=== PATIENT | male | born 1975 | race Caucasian/White ===

== ENCOUNTER 2016-12-11 16:23 | Emergency (ER) | payer BC ==
[2016-12-11] MEDS ORDERED: Sodium Chloride 0.9% 1,000 ML IV ONE (16:48)
--- NOTE | 2016-12-11 19:18 | EDM.PDOC ---
ED HPI GENERAL MEDICAL PROBLEM - General Chief Complaint: Abdominal Pain Stated Complaint: POSSIBLE FLU Time Seen by Provider: 12/11/16 16:50 Source of Information: Reports: Patient History Limitations: Reports: No Limitations - History of Present Illness INITIAL COMMENTS - FREE TEXT/NARRATIVE: History of present illness: 41-year-old male presenting with complaints of flulike symptoms. 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 Review of systems: As per history of present illness and below otherwise all systems reviewed and negative. Past medical history: As per history of present illness and as reviewed below otherwise noncontributory. Surgical history: As per history of present illness and as reviewed below otherwise noncontributory. Social history: No reported history of drug or alcohol abuse. Family history: As per history of present illness and as reviewed below otherwise noncontributory. Physical exam: HEENT: Atraumatic, normocephalic, pupils reactive, negative for conjunctival pallor or scleral icterus, mucous membranes moist, throat clear, neck supple, nontender, trachea midline. Lungs: Clear to auscultation, breath sounds equal bilaterally, chest nontender. Heart: S1S2, regular, negative for clicks, rubs, or JVD. Abdomen: Soft, nondistended, nontender. Negative for masses or hepatosplenomegaly. Negative for costovertebral tenderness. Pelvis: Stable nontender. Genitourinary: Deferred. Rectal: Deferred. Extremities: Atraumatic, negative for cords or calf pain. Neurovascular unremarkable. Neuro: Awake, alert, oriented. Cranial nerves II through XII unremarkable. Cerebellum unremarkable. Motor and sensory unremarkable throughout. Exam nonfocal. Global assessment is benign save that is noted in the subjective complaint in the history of present illness. Diagnostics: [CBC, CMP, EKG] Therapeutics: [IV fluid] Impression: [Nausea and intermittent diarrhea] Plan: [Zofran which patient has home follow-up with PCP] Definitive disposition and diagnosis as appropriate pending reevaluation and review of above. Abdomen Pain Score (Numeric/FACES): 7 - Related Data Allergies Allergy/AdvReac Type Severity Reaction Status Date / Time No Known Allergies Allergy Verified 12/11/16 16:46 Home Meds: Home Meds Pantoprazole [ProTONIX] 40 mg PO DAILY 09/29/14 [History] Sertraline [Zoloft] 50 mg PO DAILY 09/29/14 [History] Magnesium Oxide [Magnesium] 400 mg PO DAILY 11/02/14 [History] Melatonin/Pyridoxine HCl (B6) [Melatonin 3 mg Tablet] 3 mg PO BEDTIME PRN [History] LORazepam 0.5 mg PO Q6HR PRN 12/12/14 [History] Fludrocortisone [Florinef] 0.05 mg PO BIDMEALS #60 tablet 12/16/14 [Rx] Canagliflozin [Invokana] 300 mg PO DAILY 12/11/15 [History] Ondansetron [Ondansetron ODT] 4 mg PO Q6H PRN 12/11/15 [History] Hydrocortisone 5 mg PO QPM #45 tablet 12/12/15 [Rx] Hydrocortisone 10 mg PO QAM #45 tablet 12/12/15 [Rx] Past Medical History HEENT History: Reports: Impaired Vision Cardiovascular History: Reports: Cardiomyopathy, Hypertension Other Cardiovascular History: "fluid buildup on the heart" Respiratory History: Reports: None Gastrointestinal History: Reports: GERD Genitourinary History: Reports: None Psychiatric History: Reports: Anxiety, Depression Endocrine/Metabolic History: Reports: 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 Diff - Past Surgical History HEENT Surgical History: Reports: None Cardiovascular Surgical History: Reports: None GI Surgical History: Reports: Cholecystectomy Social & Family History - Family History Family Medical History: Noncontributory Respiratory: Reports: COPD, Other (See Below) Other Respiratory Family Hisory: pneumonia : Reports: Other (See Below) Other Family History: renal failure Endocrine/Metabolic: Reports: Diabetes, type II, Hypothyroidism Oncologic: Reports: Skin, Thyroid, Other (See Below) Other Oncologic Family History: stomach - Tobacco Use Smoking Status *Q: Never Smoker Second Hand Smoke Exposure: No - Caffeine Use Caffeine Use: Reports: Coffee Caffeine Use Comment: 3-4 drinks - Alcohol Use Days Per Week of Alcohol Use: 0 - Recreational Drug Use Recreational Drug Use: No - Living Situation & Occupation Living situation: Reports: Single Occupation: Employed ED ROS GENERAL - Review of Systems Review Of Systems: See Below (See history of present illness) ED EXAM, GI/ABD - Physical Exam Exam: See Below (See history of present illness) Course - Vital Signs Last Recorded V/S: Last Vital Signs Temp 36.4 C 12/11/16 16:46 Pulse 115 H 12/11/16 16:46 Resp 16 12/11/16 16:46 BP 105/54 L 12/11/16 16:46 Pulse Ox 96 12/11/16 16:46 - Orders/Labs/Meds Orders: Active Orders 24 hr Category Date Time Status EKG 12 Lead [EKG Documentation Completion] [RC] URGENT Care 12/11/16 17:10 Active Labs: Laboratory Tests 12/11/16 12/11/16 12/11/16 Range/Units 17:15 17:15 17:15 WBC 12.58 H (4.0-11.0) K/uL RBC 4.35 L (4.50-5.90) M/uL Hgb 13.2 (13.0-17.0) g/dL Hct 39.8 (38.0-50.0) % MCV 91.5 (80.0-98.0) fL MCH 30.3 (27.0-32.0) pg MCHC 33.2 (31.0-37.0) g/dL RDW Std Deviation 46.4 (28.0-62.0) fl RDW Coeff of Carlos 14 (11.0-15.0) % Plt Count 290 (150-400) K/uL MPV 10.70 (7.40-12.00) fL Neut % (Auto) 74.0 (48.0-80.0) % Lymph % (Auto) 16.6 (16.0-40.0) % Stone % (Auto) 7.5 (0.0-15.0) % Eos % (Auto) 1.7 (0.0-7.0) % Baso % (Auto) 0.2 (0.0-1.5) % Neut # (Auto) 9.3 H (1.4-5.7) K/uL Lymph # (Auto) 2.1 (0.6-2.4) K/uL Stone # (Auto) 0.9 H (0.0-0.8) K/uL Eos # (Auto) 0.2 (0.0-0.7) K/uL Baso # (Auto) 0.0 (0.0-0.1) K/uL Nucleated RBC % 0.0 /100WBC Nucleated RBCs # 0 K/uL Sodium 133 L (136-146) mmol/L Potassium 4.8 (3.5-5.1) mmol/L Chloride 105 (98-110) mmol/L Carbon Dioxide 15 L (21-31) mmol/L BUN 39 H (6.0-23.0) mg/dL Creatinine 1.5 (0.6-1.5) mg/dL Est Cr Clr Drug Dosing 82.09 mL/min Estimated GFR (MDRD) 51.1 ml/min Glucose 135 H (60-110) mg/dL Calcium 9.1 (8.8-10.8) mg/dL Total Bilirubin 0.7 (0.1-1.5) mg/dL AST 22 (5-40) IU/L ALT 33 (8-54) IU/L Alkaline Phosphatase 79 (40-150) Troponin I < 0.10 (0.0-0.29) NG/ML Total Protein 7.9 (6.0-8.0) g/dL Albumin 4.5 (3.5-5.0) g/dL Globulin 3.4 (2.0-3.5) g/dL Albumin/Globulin Ratio 1.3 (1.3-2.8) Meds: Medications Discontinued Medications Generic Name Dose Route Start Last Admin Trade Name Freq PRN Reason Stop Dose Admin Sodium Chloride 1,000 mls @ 999 mls/hr 12/11/16 16:48 12/11/16 18:27 Normal Saline IV 12/11/16 17:48 999 mls/hr STAT ONE Administration Departure - Departure Time of Disposition: 19:17 Disposition: Home, Self-Care 01 Condition: Good Clinical Impression: Diarrhea, Nausea - Discharge Information Forms: ED Department Discharge Additional Instructions: The following information is given to patients seen in the emergency department who are being discharged to home. This information is to outline your options for follow-up care. We provide all patients seen in our emergency department with a follow-up referral. The need for follow-up, as well as the timing and circumstances, are variable depending upon the specifics of your emergency department visit. If you don't have a primary care physician on staff, we will provide you with a referral. We always advise you to contact your personal physician following an emergency department visit to inform them of the circumstance of the visit and for follow-up with them and/or the need for any referrals to a consulting specialist. The emergency department will also refer you to a specialist when appropriate. This referral assures that you have the opportunity for follow-up care with a specialist. All of these measure are taken in an effort to provide you with optimal care, which includes your follow-up. Under all circumstances we always encourage you to contact your private physician who remains a resource for coordinating your care. When calling for follow-up care, please make the office aware that this follow-up is from your recent emergency room visit. If for any reason you are refused follow-up, please contact the [facility] Emergency Department at and asked to speak to the emergency department charge nurse. Take Zofran that you have a home as needed as discussed Take a clear liquid diet for the next 24-48 hours then slowly advancing diet using the breast diet which is bananas rice applesauce and toast and advancing to your normal diet as tolerated Follow-up with primary care provider in 1-2 days Return to ED as needed as discussed - My Orders Last 24 Hours: My Active Orders 12/11/16 17:10 EKG 12 Lead [EKG Documentation Completion] [RC] URGENT - Assessment/Plan Last 24 Hours: My Active Orders 12/11/16 17:10 EKG 12 Lead [EKG Documentation Completion] [RC] URGENT
[2016-12-11 20:21] VITALS: BP 99/60
== END 2016-12-11 19:37 | disposition home or self-care (01) ==
LOC: MW.ED 16:23
DX: R19.7 Diarrhea, unspecified (principal); R11.0 Nausea; K21.9 Gastro-esophageal reflux disease without esophagitis; F41.9 Anxiety disorder, unspecified; F32.9 Major depressive disorder, single episode, unspecified; E11.9 Type 2 diabetes mellitus without complications; Z90.49 Acquired absence of other specified parts of digestive tract; Z79.899 Other long term (current) drug therapy
CPT/HCPCS: 36415; 80053; 84484; 85025; 93005; 96360; 99284; J7040; 99282

== ENCOUNTER 2017-01-02 16:38 | Emergency (ER) | payer BC ==
--- NOTE | 2017-01-02 16:54 | EDM.PDOC ---
ED HPI GENERAL MEDICAL PROBLEM - General Stated Complaint: PT DIZZY Time Seen by Provider: 01/02/17 16:47 Source of Information: Reports: Patient - History of Present Illness INITIAL COMMENTS - FREE TEXT/NARRATIVE: HISTORY AND PHYSICAL: History of present illness: []Patient presents by private vehicle Has a complaint of fatigue after starting medication glipizide this morning and began to feel the fatigue and what he describes as dizzy or aloof, however he states he is actually not dizzy he just doesn't feel himself, currently glucose is 87 on Accu-Chek no other specific symptoms such as fever nausea vomiting diarrhea constipation chest pain shortness breath headache actual dizziness or palpitation no bowel or urine symptoms Patient did have a small lunch today he does not notice glucose generally runs as he does not check however does know his last A1c was 7.4 Review of systems: As per history of present illness and below otherwise all systems reviewed and negative. Past medical history: As per history of present illness and as reviewed below otherwise noncontributory. Surgical history: As per history of present illness and as reviewed below otherwise noncontributory. Social history: No reported history of drug or alcohol abuse. Family history: As per history of present illness and as reviewed below otherwise noncontributory. Physical exam: HEENT: Atraumatic, normocephalic, pupils reactive, negative for conjunctival pallor or scleral icterus, mucous membranes moist, throat clear, neck supple, nontender, trachea midline. Lungs: Clear to auscultation, breath sounds equal bilaterally, chest nontender. Heart: S1S2, regular, negative for clicks, rubs, or JVD. Abdomen: Soft, nondistended, nontender. Negative for masses or hepatosplenomegaly. Negative for costovertebral tenderness. Pelvis: Stable nontender. Genitourinary: Deferred. Rectal: Deferred. Extremities: Atraumatic, negative for cords or calf pain. Neurovascular unremarkable. Neuro: Awake, alert, oriented. Cranial nerves II through XII unremarkable. Cerebellum unremarkable. Motor and sensory unremarkable throughout. Exam nonfocal. 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 - Related Data Allergies Allergy/AdvReac Type Severity Reaction Status Date / Time No Known Allergies Allergy Verified 01/02/17 16:51 Home Meds: Home Meds Pantoprazole [ProTONIX] 40 mg PO DAILY 09/29/14 [History] Sertraline [Zoloft] 50 mg PO DAILY 09/29/14 [History] Magnesium Oxide [Magnesium] 400 mg PO DAILY 11/02/14 [History] Melatonin/Pyridoxine HCl (B6) [Melatonin 3 mg Tablet] 3 mg PO BEDTIME PRN [History] LORazepam 0.5 mg PO Q6HR PRN 12/12/14 [History] Fludrocortisone [Florinef] 0.05 mg PO BIDMEALS #60 tablet 12/16/14 [Rx] Canagliflozin [Invokana] 300 mg PO DAILY 12/11/15 [History] Ondansetron [Ondansetron ODT] 4 mg PO Q6H PRN 12/11/15 [History] Hydrocortisone 5 mg PO QPM #45 tablet 12/12/15 [Rx] Hydrocortisone 10 mg PO QAM #45 tablet 12/12/15 [Rx] glipiZIDE [Glipizide ER] 2 mg PO DAILY 01/02/17 [History] Past Medical History HEENT History: Reports: Impaired Vision Cardiovascular History: Reports: Cardiomyopathy, Hypertension Other Cardiovascular History: "fluid buildup on the heart" Respiratory History: Reports: None Gastrointestinal History: Reports: GERD Genitourinary History: Reports: None Psychiatric History: Reports: Anxiety, Depression 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 Diff - Past Surgical History HEENT Surgical History: Reports: None Cardiovascular Surgical History: Reports: None GI Surgical History: Reports: Cholecystectomy Social & Family History - Family History Family Medical History: Noncontributory Respiratory: Reports: COPD, Other (See Below) Other Respiratory Family Hisory: pneumonia : Reports: Other (See Below) Other Family History: renal failure Endocrine/Metabolic: Reports: Diabetes, type II, Hypothyroidism Oncologic: Reports: Skin, Thyroid, Other (See Below) Other Oncologic Family History: stomach - Tobacco Use Smoking Status *Q: Never Smoker Second Hand Smoke Exposure: No - Caffeine Use Caffeine Use: Reports: Coffee Caffeine Use Comment: 3-4 drinks - Alcohol Use Days Per Week of Alcohol Use: 0 - Recreational Drug Use Recreational Drug Use: No - Living Situation & Occupation Living situation: Reports: Single Occupation: Employed ED ROS GENERAL - Review of Systems Review Of Systems: ROS reveals no pertinent complaints other than HPI. ED EXAM, GENERAL - Physical Exam Exam: See Below Course - Vital Signs Last Recorded V/S: Last Vital Signs Temp 35.8 C 01/02/17 16:52 Pulse 88 01/02/17 16:52 Resp 16 01/02/17 16:52 BP 125/71 01/02/17 16:52 Pulse Ox 96 01/02/17 16:52 - Orders/Labs/Meds Orders: Active Orders 24 hr Category Date Time Status EKG Documentation Completion [RC] STAT Care 01/02/17 16:54 Active TROPONIN I [CHEM] Stat Lab 01/02/17 18:29 Received Labs: Laboratory Tests 01/02/17 01/02/17 01/02/17 Range/Units 17:13 17:13 17:13 WBC 14.18 H (4.0-11.0) K/uL RBC 4.00 L (4.50-5.90) M/uL Hgb 12.0 L (13.0-17.0) g/dL Hct 37.2 L (38.0-50.0) % MCV 93.0 (80.0-98.0) fL MCH 30.0 (27.0-32.0) pg MCHC 32.3 (31.0-37.0) g/dL RDW Std Deviation 46.2 (28.0-62.0) fl RDW Coeff of Carlos 14 (11.0-15.0) % Plt Count 314 (150-400) K/uL MPV 10.30 (7.40-12.00) fL Neut % (Auto) 67.8 (48.0-80.0) % Lymph % (Auto) 21.4 (16.0-40.0) % [place] % (Auto) 8.5 (0.0-15.0) % Eos % (Auto) 2.1 (0.0-7.0) % Baso % (Auto) 0.2 (0.0-1.5) % Neut # (Auto) 9.6 H (1.4-5.7) K/uL Lymph # (Auto) 3.0 H (0.6-2.4) K/uL [place] # (Auto) 1.2 H (0.0-0.8) K/uL Eos # (Auto) 0.3 (0.0-0.7) K/uL Baso # (Auto) 0.0 (0.0-0.1) K/uL Nucleated RBC % 0.0 /100WBC Nucleated RBCs # 0 K/uL Sodium 135 L (136-146) mmol/L Potassium 4.2 (3.5-5.1) mmol/L Chloride 104 (98-110) mmol/L Carbon Dioxide 21 (21-31) mmol/L BUN 27 H (6.0-23.0) mg/dL Creatinine 1.1 (0.6-1.5) mg/dL Est Cr Clr Drug Dosing 110.53 mL/min Estimated GFR (MDRD) > 60.0 ml/min Glucose 96 (60-110) mg/dL Calcium 8.4 L (8.8-10.8) mg/dL Total Bilirubin 0.5 (0.1-1.5) mg/dL AST 27 (5-40) IU/L ALT 35 (8-54) IU/L Alkaline Phosphatase 78 (40-150) Creatine Kinase 241 H (9-236) IU/L CK-MB (CK-2) 4.9 (0-6.6) ng/ml Total Protein 7.5 (6.0-8.0) g/dL Albumin 4.1 (3.5-5.0) g/dL Globulin 3.4 (2.0-3.5) g/dL Albumin/Globulin Ratio 1.2 L (1.3-2.8) TSH 3rd Generation 1.99 (0.47-5.0) uIU/mL Urine Color Urine Appearance Urine pH (5.0-8.0) Ur Specific [place] (1.001-1.035) Urine Protein (NEGATIVE) mg/dL Urine Glucose (UA) (NEGATIVE) mg/dL Urine Ketones (NEGATIVE) mg/dL Urine Occult Blood (NEGATIVE) Urine Nitrite (NEGATIVE) Urine Bilirubin (NEGATIVE) Urine Urobilinogen (<2.0) EU/dL Ur Leukocyte Esterase (NEGATIVE) Urine RBC (0-2/HPF) Urine WBC (0-5/HPF) Ur Epithelial Cells (NONE-FEW) Urine Bacteria (NEGATIVE) 01/02/17 Range/Units 18:11 WBC (4.0-11.0) K/uL RBC (4.50-5.90) M/uL Hgb (13.0-17.0) g/dL Hct (38.0-50.0) % MCV (80.0-98.0) fL MCH (27.0-32.0) pg MCHC (31.0-37.0) g/dL RDW Std Deviation (28.0-62.0) fl RDW Coeff of Carlos (11.0-15.0) % Plt Count (150-400) K/uL MPV (7.40-12.00) fL Neut % (Auto) (48.0-80.0) % Lymph % (Auto) (16.0-40.0) % [place] % (Auto) (0.0-15.0) % Eos % (Auto) (0.0-7.0) % Baso % (Auto) (0.0-1.5) % Neut # (Auto) (1.4-5.7) K/uL Lymph # (Auto) (0.6-2.4) K/uL [place] # (Auto) (0.0-0.8) K/uL Eos # (Auto) (0.0-0.7) K/uL Baso # (Auto) (0.0-0.1) K/uL Nucleated RBC % /100WBC Nucleated RBCs # K/uL Sodium (136-146) mmol/L Potassium (3.5-5.1) mmol/L Chloride (98-110) mmol/L Carbon Dioxide (21-31) mmol/L BUN (6.0-23.0) mg/dL Creatinine (0.6-1.5) mg/dL Est Cr Clr Drug Dosing mL/min Estimated GFR (MDRD) ml/min Glucose (60-110) mg/dL Calcium (8.8-10.8) mg/dL Total Bilirubin (0.1-1.5) mg/dL AST (5-40) IU/L ALT (8-54) IU/L Alkaline Phosphatase (40-150) Creatine Kinase (9-236) IU/L CK-MB (CK-2) (0-6.6) ng/ml Total Protein (6.0-8.0) g/dL Albumin (3.5-5.0) g/dL Globulin (2.0-3.5) g/dL Albumin/Globulin Ratio (1.3-2.8) TSH 3rd Generation (0.47-5.0) uIU/mL Urine Color YELLOW Urine Appearance CLEAR Urine pH 5.5 (5.0-8.0) Ur Specific [place] 1.015 (1.001-1.035) Urine Protein NEGATIVE (NEGATIVE) mg/dL Urine Glucose (UA) NEGATIVE (NEGATIVE) mg/dL Urine Ketones NEGATIVE (NEGATIVE) mg/dL Urine Occult Blood NEGATIVE (NEGATIVE) Urine Nitrite NEGATIVE (NEGATIVE) Urine Bilirubin NEGATIVE (NEGATIVE) Urine Urobilinogen 0.2 (<2.0) EU/dL Ur Leukocyte Esterase NEGATIVE (NEGATIVE) Urine RBC NONE SEEN (0-2/HPF) Urine WBC 0-1 (0-5/HPF) Ur Epithelial Cells RARE (NONE-FEW) Urine Bacteria RARE (NEGATIVE) Meds: Medications Discontinued Medications Generic Name Dose Route Start Last Admin Trade Name Vicente PRN Reason Stop Dose Admin Prednisone 40 mg 01/03/17 08:00 Prednisone PO WITHBREAKFAST [facility] Prednisone 40 mg 01/02/17 18:07 Prednisone PO 01/02/17 18:08 ONETIME ONE Departure - Departure Time of Disposition: 18:42 Disposition: Home, Self-Care 01 Condition: Good Clinical Impression: Medication side effect, History of Robson's disease - Discharge Information Additional Instructions: Medication as prescribed Continue your current medications as directed Return if symptoms persist or worsen Follow-up with your primary care in 2 weeks sooner as needed The following information is given to patients seen in the emergency department who are being discharged to home. This information is to outline your options for follow-up care. We provide all patients seen in our emergency department with a follow-up referral. The need for follow-up, as well as the timing and circumstances, are variable depending upon the specifics of your emergency department visit. If you don't have a primary care physician on staff, we will provide you with a referral. We always advise you to contact your personal physician following an emergency department visit to inform them of the circumstance of the visit and for follow-up with them and/or the need for any referrals to a consulting specialist. The emergency department will also refer you to a specialist when appropriate. This referral assures that you have the opportunity for follow-up care with a specialist. All of these measure are taken in an effort to provide you with optimal care, which includes your follow-up. Under all circumstances we always encourage you to contact your private physician who remains a resource for coordinating your care. When calling for follow-up care, please make the office aware that this follow-up is from your recent emergency room visit. If for any reason you are refused follow-up, please contact the [facility] emergency department at and asked to speak to the emergency department charge nurse. - My Orders Last 24 Hours: My Active Orders 01/02/17 16:54 EKG Documentation Completion [RC] STAT 01/02/17 18:29 TROPONIN I [CHEM] Stat - Assessment/Plan Last 24 Hours: My Active Orders 01/02/17 16:54 EKG Documentation Completion [RC] STAT 01/02/17 18:29 TROPONIN I [CHEM] Stat
[2017-01-02 17:52] LABS: CHLORIDE,CL 104 mmol/L (98-110); SODIUM,NA 135 mmol/L (136-146)
--- NOTE | 2017-01-02 17:56 | CR ---
EXAM DATE: 01/02/17 PATIENT'S AGE: 41 Patient: FRANCE SHELTON Facility: [place], [place] Site . Site : 1975 Study: XRay Chest [id number]/[id number] 5:33:47 PM Ordering Physician: Doctor Kaye Final Report: Indication: Fatigue, [place]`s disease Technique: Chest 1 view Comparison: May 09, 2016. Findings/Impression: Stable cardiomediastinal silhouette. No definite focal infiltrate. No effusion or pneumothorax. Osseous structures are intact. Dictated by Lela Velazquez MD @ Jan 02 2017 5:45PM (Electronic Signature) Report Signed by Proxy. RODOLFO
[2017-01-02] MEDS ORDERED: predniSONE 20 MG Tab PO ONE (18:07)
[2017-01-02 19:13] VITALS: BP 119/71
[2017-01-03] MEDS ORDERED: predniSONE 20 MG Tab PO SCH (08:00)
== END 2017-01-02 19:11 | disposition home or self-care (01) ==
LOC: MW.ED 16:38
DX: R53.83 Other fatigue (principal); T38.3X5A Adverse effect of insulin and oral hypoglycemic [antidiabetic] drugs, initial encounter; E11.9 Type 2 diabetes mellitus without complications; I10 Essential (primary) hypertension; F41.9 Anxiety disorder, unspecified; K21.9 Gastro-esophageal reflux disease without esophagitis; Z90.49 Acquired absence of other specified parts of digestive tract; Z79.899 Other long term (current) drug therapy; Z86.39 Personal history of other endocrine, nutritional and metabolic disease
CPT/HCPCS: 36415; 71010; 80053; 81001; 82550; 82553; 84443; 84484; 85025; 93005; 99284; A9270; 99282

== ENCOUNTER 2017-03-30 14:41 | Emergency (ER) | payer BC ==
[2017-03-30] MEDS ORDERED: Sodium Chloride 0.9% 10 ML Syringe FLUSH PRN (15:39)
[2017-03-30] MEDS ORDERED: Sodium Chloride 0.9% 2.5 ML Syringe FLUSH PRN (15:39)
[2017-03-30] MEDS ORDERED: Sodium Chloride 0.9% 1,000 ML IV ONE (15:40)
--- NOTE | 2017-03-30 15:44 | EDM.PDOC ---
ED HPI GENERAL MEDICAL PROBLEM - General Chief Complaint: General Stated Complaint: weak in legs Time Seen by Provider: 03/30/17 15:32 - History of Present Illness INITIAL COMMENTS - FREE TEXT/NARRATIVE: HISTORY AND PHYSICAL: History of present illness: The patient is a 42-year-old male who follows with Dr. Florez at [facility] and has a history of diabetes and Rainelle's disease presents with complaints of generalized weakness and malaise and is concerned about this. According to the patient he had a sore throat couple of days ago which has since resolved and he has not had a cough runny nose sinus congestion or headache. He said he had one episode of vomiting yesterday but no diarrhea and he is just feeling very run down and has generalized weakness. He is not dizzy or lightheaded and is not passing out or blacking out and has no neck or back pain. He has no urinary frequency and he says he's been trying to hydrate because he was concerned that his Robson's might kick in and he was getting dehydrated. Patient is compliant with his steroid regimen at home and did not take any extra prior to coming here. Patient denies any focal weakness in any of his extremities and denies the dizzy component. The patient states that his blood sugar is doing at its baseline at home and it has not been changing more elevated over the last 2 days and his last hemoglobin A1c was just over 6. Review of systems: As per history of present illness and below otherwise all systems reviewed and negative. Past medical history: As per history of present illness and as reviewed below otherwise noncontributory. Surgical history: As per history of present illness and as reviewed below otherwise noncontributory. Social history: No reported history of drug or alcohol abuse. Family history: As per history of present illness and as reviewed below otherwise noncontributory. Physical exam: Gen.: Well-developed overweight male who is nontoxic in clearly and easily in the ED vital signs of been reviewed by me HEENT: Atraumatic, normocephalic, pupils reactive, negative for conjunctival pallor or scleral icterus, mucous membranes tacky throat clear, neck supple, nontender, trachea midline. Lungs: Clear to auscultation, breath sounds equal bilaterally, chest nontender. Heart: S1S2, regular rhythm and slightly tachycardic rate on my evaluation, negative for clicks, rubs, or JVD. Abdomen: Soft, nondistended, nontender. Negative for masses or hepatosplenomegaly. Negative for costovertebral tenderness. Pelvis: Stable nontender. Genitourinary: Deferred. Rectal: Deferred. Extremities: Atraumatic, negative for cords or calf pain. Neurovascular unremarkable. Full range of motion without defects or deficits Neuro: Awake, alert, oriented. Cranial nerves II through XII unremarkable. Cerebellum unremarkable. Motor and sensory unremarkable throughout. Exam nonfocal. Diagnostics: EKG CBC CMP UA magnesium level orthostatic vitals chest x-ray, lactic acid, urine culture blood culture 2 Therapeutics: IV fluids solu- Medrol I discussed with the patient on my initial evaluation giving him a dose of steroids due to his history and presentation. He would like to defer and wait for his blood work and see how he feels after the hydration. I discussed all testing results with the patient and that we have sent the cultures which we can follow-up those testing results. The patient currently denies any complaints of cough chest pain abdominal pain nausea vomiting diarrhea sore throat runny nose. He is aware of my concerns of the WBC count and the left shift but I do not have an etiology to treat at this time. We've discussed a dose of steroids, Solu-Medrol, and follow-up of his CBC tomorrow with close follow-up with Dr. Florez and he feels comfortable with this plan. I' ve advised him on reasons to return to the ER. Impression: Generalized weakness with history of Rainelle's, stable, leukocytosis etiology unclear stable Definitive disposition and diagnosis as appropriate pending reevaluation and review of above. joint Pain Score (Numeric/FACES): 2 - Related Data Allergies Allergy/AdvReac Type Severity Reaction Status Date / Time No Known Allergies Allergy Verified 03/30/17 15:05 Home Meds: Home Meds Pantoprazole [ProTONIX] 40 mg PO DAILY 09/29/14 [History] Sertraline [Zoloft] 50 mg PO DAILY 09/29/14 [History] Magnesium Oxide [Magnesium] 400 mg PO DAILY 11/02/14 [History] Melatonin/Pyridoxine HCl (B6) [Melatonin 3 mg Tablet] 3 mg PO BEDTIME PRN [History] LORazepam 0.5 mg PO Q6HR PRN 12/12/14 [History] Fludrocortisone [Florinef] 0.05 mg PO BIDMEALS #60 tablet 12/16/14 [Rx] Canagliflozin [Invokana] 300 mg PO DAILY 12/11/15 [History] Ondansetron [Ondansetron ODT] 4 mg PO Q6H PRN 12/11/15 [History] Hydrocortisone 5 mg PO QPM #45 tablet 12/12/15 [Rx] Hydrocortisone 10 mg PO QAM #45 tablet 12/12/15 [Rx] glipiZIDE [Glipizide ER] 2 mg PO DAILY 01/02/17 [History] Past Medical History HEENT History: Reports: Impaired Vision Cardiovascular History: Reports: Cardiomyopathy, Hypertension Other Cardiovascular History: "fluid buildup on the heart" Respiratory History: Reports: None Gastrointestinal History: Reports: GERD Genitourinary History: Reports: None Psychiatric History: Reports: Anxiety, Depression Endocrine/Metabolic History: 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 Diff - Past Surgical History HEENT Surgical History: Reports: None Cardiovascular Surgical History: Reports: None GI Surgical History: Reports: Cholecystectomy Social & Family History - Family History Family Medical History: Noncontributory Respiratory: Reports: COPD, Other (See Below) Other Respiratory Family Hisory: pneumonia : Reports: Other (See Below) Other Family History: renal failure Endocrine/Metabolic: Reports: Diabetes, type II, Hypothyroidism Oncologic: Reports: Skin, Thyroid, Other (See Below) Other Oncologic Family History: stomach - Tobacco Use Smoking Status *Q: Never Smoker Second Hand Smoke Exposure: No - Caffeine Use Caffeine Use: Reports: Coffee Caffeine Use Comment: 3-4 drinks - Alcohol Use Days Per Week of Alcohol Use: 0 - Recreational Drug Use Recreational Drug Use: No - Living Situation & Occupation Living situation: Reports: Single Occupation: Employed ED ROS GENERAL - Review of Systems Review Of Systems: ROS reveals no pertinent complaints other than HPI. ED EXAM, GENERAL - Physical Exam Exam: See Below (See dictation) Course - Vital Signs Last Recorded V/S: Last Vital Signs Temp 36.4 C 03/30/17 14:41 Pulse 118 H 03/30/17 14:41 Resp 18 03/30/17 14:41 BP 113/75 03/30/17 14:41 Pulse Ox 95 03/30/17 14:41 Orthostatic Blood Pressure [ 94/63 Standing] Orthostatic Blood Pressure [ 108/64 Sitting] Orthostatic Blood Pressure [ 108/67 Supine] - Orders/Labs/Meds Orders: Active Orders 24 hr Category Date Time Status Blood Glucose Check, Bedside [RC] ONETIME Care 03/30/17 15:39 Active EKG Documentation Completion [RC] STAT Care 03/30/17 15:39 Active Orthostatic Vital Signs [RC] ASDIRECTED Care 03/30/17 15:44 Active Chest 2V [CR] Stat Exams 03/30/17 16:45 Taken CULTURE BLOOD [BC] Stat Lab 03/30/17 17:03 Results CULTURE BLOOD [BC] Stat Lab 03/30/17 17:10 Received CULTURE URINE [RM] Stat Lab 03/30/17 16:25 Received Sodium Chloride 0.9% [Saline Flush] Med 03/30/17 15:39 Active 10 ml FLUSH ASDIRECTED PRN Sodium Chloride 0.9% [Saline Flush] Med 03/30/17 15:39 Active 2.5 ml FLUSH ASDIRECTED PRN methylPREDNISolone Sod Succ [Solu-MEDROL] Med 03/30/17 18:16 Once 125 mg IVPUSH ONETIME ONE Blood Culture x2 Reflex Set [OM.PC] Stat Oth 03/30/17 16:50 Ordered Saline Lock Insert [OM.PC] Stat Oth 03/30/17 15:39 Ordered Medication Orders Methylprednisolone Sodium Succinate (Solu-Medrol) 125 mg IVPUSH ONETIME ONE Stop: 03/30/17 18:17 Sodium Chloride (Saline Flush) 10 ml FLUSH ASDIRECTED PRN PRN Reason: Keep Vein Open Last Admin: 03/30/17 16:54 Dose: 10 ml Sodium Chloride (Saline Flush) 2.5 ml FLUSH ASDIRECTED PRN PRN Reason: Keep Vein Open Last Admin: 03/30/17 16:54 Dose: 2.5 ml Labs: Laboratory Tests 03/30/17 03/30/17 03/30/17 Range/Units 15:48 15:48 15:48 WBC 16.61 H (4.0-11.0) K/uL RBC 4.39 L (4.50-5.90) M/uL Hgb 13.1 (13.0-17.0) g/dL Hct 39.4 (38.0-50.0) % MCV 89.7 (80.0-98.0) fL MCH 29.8 (27.0-32.0) pg MCHC 33.2 (31.0-37.0) g/dL RDW Std Deviation 46.4 (28.0-62.0) fl RDW Coeff of Carlos 14 (11.0-15.0) % Plt Count 324 (150-400) K/uL MPV 10.70 (7.40-12.00) fL Add Manual Diff YES Neutrophils % (Manual) 62 (48.0-80.0) % Band Neutrophils % 7 % Lymphocytes % (Manual) 19 (16.0-40.0) % Monocytes % (Manual) 10 (0.0-15.0) % Eosinophils % (Manual) 2 (0.0-7.0) % Nucleated RBC % 0.0 /100WBC Absolute Seg Neuts 10.3 Band Neutrophils # 1.2 Lymphocytes # (Manual) 3.2 Monocytes # (Manual) 1.7 Eosinophils # (Manual) 0.3 Nucleated RBCs # 0 K/uL Lactate 0.9 (0.20-2.00) mmol/L Sodium 135 L (136-146) mmol/L Potassium 4.3 (3.5-5.1) mmol/L Chloride 102 (98-110) mmol/L Carbon Dioxide 22 (21-31) mmol/L BUN 21 (6.0-23.0) mg/dL Creatinine 1.3 (0.6-1.5) mg/dL Est Cr Clr Drug Dosing 92.56 mL/min Estimated GFR (MDRD) 60.0 ml/min Glucose 179 H (60-110) mg/dL POC Glucose (60-110) mg/dL Calcium 9.5 (8.8-10.8) mg/dL Magnesium 1.4 L (1.5-2.3) mEq/L Total Bilirubin 0.6 (0.1-1.5) mg/dL AST 18 (5-40) IU/L ALT 27 (8-54) IU/L Alkaline Phosphatase 79 (40-150) Total Protein 7.8 (6.0-8.0) g/dL Albumin 3.9 (3.5-5.0) g/dL Globulin 3.9 H (2.0-3.5) g/dL Albumin/Globulin Ratio 1.0 L (1.3-2.8) Urine Color Urine Appearance Urine pH (5.0-8.0) Ur Specific [place] (1.001-1.035) Urine Protein (NEGATIVE) mg/dL Urine Glucose (UA) (NEGATIVE) mg/dL Urine Ketones (NEGATIVE) mg/dL Urine Occult Blood (NEGATIVE) Urine Nitrite (NEGATIVE) Urine Bilirubin (NEGATIVE) Urine Ictotest Urine Urobilinogen (<2.0) EU/dL Ur Leukocyte Esterase (NEGATIVE) Urine RBC (0-2/HPF) Urine WBC (0-5/HPF) Ur Epithelial Cells (NONE-FEW) Amorphous Sediment (NEGATIVE) Urine Bacteria (NEGATIVE) Hyaline Casts (0-2/LPF) Coarse Granular Casts (NEGATIVE) Urine Mucus (NONE-MOD) Urinalysis Comment 03/30/17 03/30/17 Range/Units 16:25 16:34 WBC (4.0-11.0) K/uL RBC (4.50-5.90) M/uL Hgb (13.0-17.0) g/dL Hct (38.0-50.0) % MCV (80.0-98.0) fL MCH (27.0-32.0) pg MCHC (31.0-37.0) g/dL RDW Std Deviation (28.0-62.0) fl RDW Coeff of Carlos (11.0-15.0) % Plt Count (150-400) K/uL MPV (7.40-12.00) fL Add Manual Diff Neutrophils % (Manual) (48.0-80.0) % Band Neutrophils % % Lymphocytes % (Manual) (16.0-40.0) % Monocytes % (Manual) (0.0-15.0) % Eosinophils % (Manual) (0.0-7.0) % Nucleated RBC % /100WBC Absolute Seg Neuts Band Neutrophils # Lymphocytes # (Manual) Monocytes # (Manual) Eosinophils # (Manual) Nucleated RBCs # K/uL Lactate (0.20-2.00) mmol/L Sodium (136-146) mmol/L Potassium (3.5-5.1) mmol/L Chloride (98-110) mmol/L Carbon Dioxide (21-31) mmol/L BUN (6.0-23.0) mg/dL Creatinine (0.6-1.5) mg/dL Est Cr Clr Drug Dosing mL/min Estimated GFR (MDRD) ml/min Glucose (60-110) mg/dL POC Glucose 160 H (60-110) mg/dL Calcium (8.8-10.8) mg/dL Magnesium (1.5-2.3) mEq/L Total Bilirubin (0.1-1.5) mg/dL AST (5-40) IU/L ALT (8-54) IU/L Alkaline Phosphatase (40-150) Total Protein (6.0-8.0) g/dL Albumin (3.5-5.0) g/dL Globulin (2.0-3.5) g/dL Albumin/Globulin Ratio (1.3-2.8) Urine Color YELLOW Urine Appearance CLEAR Urine pH 5.0 (5.0-8.0) Ur Specific [place] >= 1.030 (1.001-1.035) Urine Protein 100 (NEGATIVE) mg/dL Urine Glucose (UA) NEGATIVE (NEGATIVE) mg/dL Urine Ketones TRACE H (NEGATIVE) mg/dL Urine Occult Blood NEGATIVE (NEGATIVE) Urine Nitrite NEGATIVE (NEGATIVE) Urine Bilirubin MODERATE H (NEGATIVE) Urine Ictotest NEGATIVE Urine Urobilinogen 0.2 (<2.0) EU/dL Ur Leukocyte Esterase NEGATIVE (NEGATIVE) Urine RBC 0-1 (0-2/HPF) Urine WBC 1-3 (0-5/HPF) Ur Epithelial Cells RARE (NONE-FEW) Amorphous Sediment LIGHT (NEGATIVE) Urine Bacteria FEW (NEGATIVE) Hyaline Casts 0-1 (0-2/LPF) Coarse Granular Casts 1-2 (NEGATIVE) Urine Mucus LIGHT (NONE-MOD) Urinalysis Comment Meds: Medications Generic Name Dose Route Start Last Admin Trade Name Freq PRN Reason Stop Dose Admin Methylprednisolone Sodium Succinate 125 mg 03/30/17 18:16 Solu-Medrol IVPUSH 03/30/17 18:17 ONETIME ONE Sodium Chloride 10 ml 03/30/17 15:39 03/30/17 16:54 Saline Flush FLUSH 10 ml ASDIRECTED PRN Administration Keep Vein Open Sodium Chloride 2.5 ml 03/30/17 15:39 03/30/17 16:54 Saline Flush FLUSH 2.5 ml ASDIRECTED PRN Administration Keep Vein Open Discontinued Medications Generic Name Dose Route Start Last Admin Trade Name Vicente PRN Reason Stop Dose Admin Sodium Chloride 1,000 mls @ 999 mls/hr 03/30/17 15:40 03/30/17 16:55 Normal Saline IV 03/30/17 16:40 999 mls/hr STAT ONE Administration Departure - Departure Time of Disposition: 18:18 Disposition: Home, Self-Care 01 Condition: Good Clinical Impression: Adrenal insufficiency, Generalized weakness - Discharge Information Referrals: Neil Florez MD [Primary Care Provider] - Forms: ED Department Discharge Additional Instructions: The following information is given to patients seen in the emergency department who are being discharged to home. This information is to outline your options for follow-up care. We provide all patients seen in our emergency department with a follow-up referral. The need for follow-up, as well as the timing and circumstances, are variable depending upon the specifics of your emergency department visit. If you don't have a primary care physician on staff, we will provide you with a referral. We always advise you to contact your personal physician following an emergency department visit to inform them of the circumstance of the visit and for follow-up with them and/or the need for any referrals to a consulting specialist. The emergency department will also refer you to a specialist when appropriate. This referral assures that you have the opportunity for followup care with a specialist. All of these measure are taken in an effort to provide you with optimal care, which includes your followup. Under all circumstances we always encourage you to contact your private physician who remains a resource for coordinating your care. When calling for followup care, please make the office aware that this follow-up is from your recent emergency room visit. If for any reason you are refused follow-up, please contact the [facility] emergency department at and ask to speak to the emergency department charge nurse. Shabnam [address] [place] [id number] Please push hydration and avoid caffeinated products. Please continue all of your home medications and please call and follow-up with Dr. Florez tomorrow in the clinic. Please go and have your blood drawn late tomorrow morning or midday and plan to see Dr. Florez or one of the other providers in the clinic afterwards. He is return to ER as needed and as discussed. If any of the culture results produce any indication for further treatment he would be contacted from the ER. - My Orders Last 24 Hours: My Active Orders 03/30/17 15:39 Blood Glucose Check, Bedside [RC] ONETIME EKG Documentation Completion [RC] STAT Sodium Chloride 0.9% [Saline Flush] 10 ml FLUSH ASDIRECTED PRN Sodium Chloride 0.9% [Saline Flush] 2.5 ml FLUSH ASDIRECTED PRN Saline Lock Insert [OM.PC] Stat 03/30/17 15:44 Orthostatic Vital Signs [RC] ASDIRECTED 03/30/17 16:25 CULTURE URINE [RM] Stat 03/30/17 16:45 Chest 2V [CR] Stat 03/30/17 16:50 Blood Culture x2 Reflex Set [OM.PC] Stat 03/30/17 17:03 CULTURE BLOOD [BC] Stat 03/30/17 17:10 CULTURE BLOOD [BC] Stat 03/30/17 18:16 methylPREDNISolone Sod Succ [Solu-MEDROL] 125 mg IVPUSH ONETIME ONE - Assessment/Plan Last 24 Hours: My Active Orders 03/30/17 15:39 Blood Glucose Check, Bedside [RC] ONETIME EKG Documentation Completion [RC] STAT Sodium Chloride 0.9% [Saline Flush] 10 ml FLUSH ASDIRECTED PRN Sodium Chloride 0.9% [Saline Flush] 2.5 ml FLUSH ASDIRECTED PRN Saline Lock Insert [OM.PC] Stat 03/30/17 15:44 Orthostatic Vital Signs [RC] ASDIRECTED 03/30/17 16:25 CULTURE URINE [RM] Stat 03/30/17 16:45 Chest 2V [CR] Stat 03/30/17 16:50 Blood Culture x2 Reflex Set [OM.PC] Stat 03/30/17 17:03 CULTURE BLOOD [BC] Stat 03/30/17 17:10 CULTURE BLOOD [BC] Stat 03/30/17 18:16 methylPREDNISolone Sod Succ [Solu-MEDROL] 125 mg IVPUSH ONETIME ONE
[2017-03-30] MEDS ORDERED: methylPREDNISolone Sodium Succinate 125 MG/2 ML SDV IVPUSH ONE (18:16)
[2017-03-30 18:56] VITALS: BP 127/82
--- NOTE | 2017-03-31 14:54 | CR ---
EXAM DATE: 03/30/17 PATIENT'S AGE: 42 Patient: FRANCE SHELTON Facility: [place], [place] Site . Site : [id number] Study: XRay Chest [id number]/2/2017 5:41:58 PM Ordering Physician: Kory Fitzpatrick Final Report: Indication: Shortness of breath and chest pain Technique: Chest 2 views Comparison: None Findings/Impression: Cardiovascular and mediastinum: Upper limits of normal cardiac size. Lungs and pleural spaces: The costophrenic angles are not imaged. Bilateral diaphragmatic eventrations. No consolidation or definite pleural effusions. Bones and soft tissues: Clustered ovoid densities projecting over the upper abdomen on the lateral view, nonspecific. Dictated by Roman Donald MD @ 03/30/2017 5:54:04 PM Dictated by: Roman Donald MD @ 03/30/2017 17:54:09 (Electronic Signature) Report Signed by Proxy. RODOLFO
== END 2017-03-30 18:54 | disposition home or self-care (01) ==
LOC: MW.ED 14:41
DX: E27.40 Unspecified adrenocortical insufficiency (principal); I10 Essential (primary) hypertension; K21.9 Gastro-esophageal reflux disease without esophagitis; E11.9 Type 2 diabetes mellitus without complications; Z79.899 Other long term (current) drug therapy
CPT/HCPCS: 36415; 71020; 80053; 81001; 82962; 83605; 83735; 85025; 87040; 87086; 93005; 96361; 96374; 99285; J2930; J7040; 99284

== ENCOUNTER 2018-10-28 13:24 | Inpatient (IN) | payer BC ==
--- NOTE | 2018-10-28 13:42 | EDM.PDOC ---
ED HPI GENERAL MEDICAL PROBLEM - General Chief Complaint: General Stated Complaint: FLU Time Seen by Provider: 10/28/18 13:30 Source of Information: Reports: Patient History Limitations: Reports: No Limitations - History of Present Illness INITIAL COMMENTS - FREE TEXT/NARRATIVE: HISTORY AND PHYSICAL: History of present illness: Patient is a 43-year-old male presents to the ED today with concern for flu. Patient states he's been having generalized body aches, weakness, intermittent fevers 3-4 days. 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 He denies any change in dosing of steroids. Patient states he did miss his morning dose today because he felt too weak to get out of bed. He also has been coughing since Thursday. Patient denies chest pain, shortness of breath. Denies headache, neck stiff ness , change in vision, syncope, or near syncope. Denies nausea, vomiting, abdominal pain, diarrhea, constipation, or dysuria. Has not noted any blood in urine or stool. Patient has had a decrease in fluid intake since onset of symptoms. Patient has a history of hypertension, congestive heart failure, Saint Augustine's disease, type 2 diabetes, CLL, COPD, and hypothyroidism. Review of systems: As per history of present illness and below otherwise all systems reviewed and negative. Past medical history: As per history of present illness and as reviewed below otherwise noncontributory. Surgical history: As per history of present illness and as reviewed below otherwise noncontributory. Social history: See social history for further information Family history: As per history of present illness and as reviewed below otherwise noncontributory. Physical exam: Physical exam is limited due to body habitus. General: Patient is alert, oriented, and in no acute distress. Patient laying comfortably on exam table. HEENT: Atraumatic, normocephalic, pupils equal and reactive bilaterally, negative for conjunctival pallor or scleral icterus, mucous membranes dry, TMs normal bilaterally, throat clear, neck supple, nontender, trachea midline. No drooling or trismus noted. No meningeal signs. No hot potato voice noted. Lungs: Fine crackles of bilateral lung bases to auscultation, breath sounds equal bilaterally, chest nontender. Tachypneic. Heart: S1S2, regular rate and rhythm without overt murmur Abdomen: Morbidly obese. Soft, nondistended, nontender. Negative for masses or hepatosplenomegaly. Negative for costovertebral tenderness. Pelvis: Stable nontender. Genitourinary: Deferred. Rectal: Deferred. Skin: Intact, warm, dry. No lesions or rashes noted. Extremities: Atraumatic, negative for cords or calf pain. Neurovascular unremarkable. Neuro: Awake, alert, oriented. Cranial nerves II through XII unremarkable. Cerebellum unremarkable. Motor and sensory unremarkable throughout. Exam nonfocal. Notes: Dr. Horn verbally involved in patients care. Placed on 4L nasal cannula after arrival to ED with resolution of hypoxia. Patient remained on nasal cannula throughout stay in ED. CXR shows bibasilar infiltrate vs atelectasis. Dr. Patten, hospitalist, was consulted on patient and will admit to inpatient. Voices understanding and is agreeable to plan of care. Denies any further questions or concerns at this time. Diagnostics: Influenza, strep, EKG, CBC, CMP, UA, chest x-ray, troponin, lactate, magnesium, TSH, BNP, blood cultures x 2 Therapeutics: Normal saline, hydrocortisone, duoneb, rocephin Impression: Community acquired pneumonia with hypoxia Dehydration Saint Augustine's disease Immunocompromised Plan: Admit to inpatient to Dr. Patten Definitive disposition and diagnosis as appropriate pending reevaluation and review of above. joints Pain Score (Numeric/FACES): 6 - Related Data Allergies Allergy/AdvReac Type Severity Reaction Status Date / Time No Known Allergies Allergy Verified 10/28/18 13:39 Home Meds: Home Meds Pantoprazole [ProTONIX] 40 mg PO DAILY 09/29/14 [History] Sertraline [Zoloft] 50 mg PO DAILY 09/29/14 [History] Magnesium Oxide [Magnesium] 400 mg PO DAILY 11/02/14 [History] Melatonin/Pyridoxine HCl (B6) [Melatonin 3 mg Tablet] 3 mg PO BEDTIME PRN [History] LORazepam 0.5 mg PO Q6HR PRN 12/12/14 [History] Fludrocortisone [Florinef] 0.05 mg PO BIDMEALS #60 tablet 12/16/14 [Rx] Canagliflozin [Invokana] 300 mg PO DAILY 12/11/15 [History] Ondansetron [Ondansetron ODT] 4 mg PO Q6H PRN 12/11/15 [History] Hydrocortisone 5 mg PO QPM #45 tablet 12/12/15 [Rx] Hydrocortisone 10 mg PO QAM #45 tablet 12/12/15 [Rx] glipiZIDE [Glipizide ER] 2 mg PO DAILY 01/02/17 [History] Past Medical History HEENT History: Reports: Impaired Vision Cardiovascular History: Reports: Cardiomyopathy, Hypertension Other Cardiovascular History: "fluid buildup on the heart" Respiratory History: Reports: None Gastrointestinal History: Reports: GERD Genitourinary History: Reports: None Psychiatric History: Reports: Depression Endocrine/Metabolic History: Reports: Saint Augustine's Disease, Diabetes, Type II Other Endocrine/Metabolic History: adrenal insufficiency Hematologic History: Reports: Anesthesia Reaction Immunologic History: Reports: Immunosuppression Oncologic (Cancer) History: Reports: Other (See Below) 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 Diff - Past Surgical History HEENT Surgical History: Reports: None Cardiovascular Surgical History: Reports: None GI Surgical History: Reports: Cholecystectomy Other GI Surgeries/Procedures: spleenectomy Social & Family History - Family History Family Medical History: Noncontributory Respiratory: Reports: COPD, Other (See Below) Other Respiratory Family Hisory: pneumonia : Reports: Other (See Below) Other Family History: renal failure Endocrine/Metabolic: Reports: Diabetes, type II, Hypothyroidism Oncologic: Reports: Skin, Thyroid, Other (See Below) Other Oncologic Family History: stomach - Tobacco Use Smoking Status *Q: Never Smoker - Caffeine Use Caffeine Use: Reports: Soda Caffeine Use Comment: 3-4 drinks - Recreational Drug Use Recreational Drug Use: No - Living Situation & Occupation Living situation: Reports: Single Occupation: Employed ED ROS GENERAL - Review of Systems Review Of Systems: ROS reveals no pertinent complaints other than HPI. ED EXAM, GENERAL - Physical Exam Exam: See Below (See dictation) Course - Vital Signs Last Recorded V/S: Last Vital Signs Temp 36.8 C 10/28/18 13:36 Pulse 123 H 10/28/18 15:20 Resp 22 H 10/28/18 15:20 BP 122/73 10/28/18 15:20 Pulse Ox 95 10/28/18 15:21 - Orders/Labs/Meds Orders: Active Orders 24 hr Category Date Time Status Admission Status [Patient Status] [ADT] Stat ADT 10/28/18 16:01 Ordered EKG Documentation Completion [RC] STAT Care 10/28/18 13:51 Active RT Aerosol Therapy [RC] ASDIRECTED Care 10/28/18 14:01 Active CULTURE BLOOD [BC] Stat Lab 10/28/18 14:35 Results CULTURE BLOOD [BC] Stat Lab 10/28/18 14:43 Results CULTURE STREP A CONFIRMATION [RM] Stat Lab 10/28/18 13:54 Results STREP SCRN A RAPID W CULT CONF [RM] Stat Lab 10/28/18 13:54 Results UA RFX JUDE AND CULT IF INDIC [URIN] Stat Lab 10/28/18 13:47 Ordered Sodium Chloride 0.9% [Normal Saline] 1,000 ml Med 10/28/18 15:13 Ordered IV STAT Blood Culture x2 Reflex Set [OM.PC] Stat Oth 10/28/18 14:00 Ordered Medication Orders Sodium Chloride (Normal Saline) 1,000 mls @ 999 mls/hr IV STAT ONE Stop: 10/28/18 16:13 Last Admin: 10/28/18 15:20 Dose: 999 mls/hr Labs: Laboratory Tests 10/28/18 10/28/18 10/28/18 Range/Units 14:08 14:08 14:08 WBC 15.86 H (4.0-11.0) K/uL RBC 4.64 (4.50-5.90) M/uL Hgb 14.0 (13.0-17.0) g/dL Hct 41.9 (38.0-50.0) % MCV 90.3 (80.0-98.0) fL MCH 30.2 (27.0-32.0) pg MCHC 33.4 (31.0-37.0) g/dL RDW Std Deviation 46.7 (28.0-62.0) fl RDW Coeff of Carlos 14 (11.0-15.0) % Plt Count 191 (150-400) K/uL MPV 10.60 (7.40-12.00) fL Neut % (Auto) 66.9 (48.0-80.0) % Lymph % (Auto) 17.7 (16.0-40.0) % [place] % (Auto) 14.9 (0.0-15.0) % Eos % (Auto) 0.3 (0.0-7.0) % Baso % (Auto) 0.2 (0.0-1.5) % Neut # (Auto) 10.6 H (1.4-5.7) K/uL Lymph # (Auto) 2.8 H (0.6-2.4) K/uL [place] # (Auto) 2.4 H (0.0-0.8) K/uL Eos # (Auto) 0.1 (0.0-0.7) K/uL Baso # (Auto) 0.0 (0.0-0.1) K/uL Nucleated RBC % 0.0 /100WBC Nucleated RBCs # 0 K/uL Lactate 0.9 (0.20-2.00) mmol/L Sodium 131 L (136-148) mmol/L Potassium 4.1 (3.5-5.1) mmol/L Chloride 95 L (98-107) mmol/L Carbon Dioxide 22.4 (21.0-32.0) mmol/L BUN 23 H (7.0-18.0) mg/dL Creatinine 1.4 H (0.8-1.3) mg/dL Est Cr Clr Drug Dosing 83.97 mL/min Estimated GFR (MDRD) 54.8 ml/min Glucose 136 H (74-106) mg/dL Calcium 8.9 (8.5-10.1) mg/dL Magnesium (1.8-2.4) mg/dL Total Bilirubin 0.9 (0.2-1.0) mg/dL AST 25 (15-37) IU/L ALT 33 (14-63) IU/L Alkaline Phosphatase 57 (46-116) U/L Troponin I < 0.050 (0.000-0.056) ng/mL B-Natriuretic Peptide (<100) PG/ML Total Protein 7.9 (6.4-8.2) g/dL Albumin 3.6 (3.4-5.0) g/dL Globulin 4.3 H (2.6-4.0) g/dL Albumin/Globulin Ratio 0.8 L (0.9-1.6) TSH 3rd Generation (0.36-3.74) uIU/mL 10/28/18 10/28/18 Range/Units 14:08 14:08 WBC (4.0-11.0) K/uL RBC (4.50-5.90) M/uL Hgb (13.0-17.0) g/dL Hct (38.0-50.0) % MCV (80.0-98.0) fL MCH (27.0-32.0) pg MCHC (31.0-37.0) g/dL RDW Std Deviation (28.0-62.0) fl RDW Coeff of Carlos (11.0-15.0) % Plt Count (150-400) K/uL MPV (7.40-12.00) fL Neut % (Auto) (48.0-80.0) % Lymph % (Auto) (16.0-40.0) % [place] % (Auto) (0.0-15.0) % Eos % (Auto) (0.0-7.0) % Baso % (Auto) (0.0-1.5) % Neut # (Auto) (1.4-5.7) K/uL Lymph # (Auto) (0.6-2.4) K/uL [place] # (Auto) (0.0-0.8) K/uL Eos # (Auto) (0.0-0.7) K/uL Baso # (Auto) (0.0-0.1) K/uL Nucleated RBC % /100WBC Nucleated RBCs # K/uL Lactate (0.20-2.00) mmol/L Sodium (136-148) mmol/L Potassium (3.5-5.1) mmol/L Chloride (98-107) mmol/L Carbon Dioxide (21.0-32.0) mmol/L BUN (7.0-18.0) mg/dL Creatinine (0.8-1.3) mg/dL Est Cr Clr Drug Dosing mL/min Estimated GFR (MDRD) ml/min Glucose (74-106) mg/dL Calcium (8.5-10.1) mg/dL Magnesium 1.8 (1.8-2.4) mg/dL Total Bilirubin (0.2-1.0) mg/dL AST (15-37) IU/L ALT (14-63) IU/L Alkaline Phosphatase (46-116) U/L Troponin I (0.000-0.056) ng/mL B-Natriuretic Peptide 6 (<100) PG/ML Total Protein (6.4-8.2) g/dL Albumin (3.4-5.0) g/dL Globulin (2.6-4.0) g/dL Albumin/Globulin Ratio (0.9-1.6) TSH 3rd Generation 2.45 (0.36-3.74) uIU/mL Meds: Medications Generic Name Dose Route Start Last Admin Trade Name Freq PRN Reason Stop Dose Admin Sodium Chloride 1,000 mls @ 999 mls/hr 10/28/18 15:13 10/28/18 15:20 Normal Saline IV 10/28/18 16:13 999 mls/hr STAT ONE Administration Discontinued Medications Generic Name Dose Route Start Last Admin Trade Name Freq PRN Reason Stop Dose Admin Albuterol/Ipratropium 3 ml 10/28/18 14:01 10/28/18 14:31 Duoneb 3.0-0.5 Mg/3 Ml NEB 10/28/18 14:02 3 ml ONETIME ONE Administration Hydrocortisone Sodium Succinate 100 mg 10/28/18 13:53 10/28/18 14:09 Solu-Cortef IVPUSH 10/28/18 13:54 100 mg ONETIME ONE Administration Sodium Chloride 1,000 mls @ 999 mls/hr 10/28/18 13:50 10/28/18 14:09 Normal Saline IV 10/28/18 14:50 999 mls/hr BOLUS ONE Administration Ceftriaxone Sodium/Dextrose 1 50 mls @ 100 mls/hr 10/28/18 15:03 10/28/18 15: 20 gm/ Premix IV 10/28/18 15:32 100 mls/hr ONETIME ONE Administration Methylprednisolone Sodium Succinate 125 mg 10/28/18 13:51 10/28/18 13:56 Solu-Medrol IVPUSH 10/28/18 13:52 Not Given ONETIME ONE Departure - Departure Time of Disposition: 16:04 Disposition: Admitted As Inpatient 64 Condition: Fair Clinical Impression: Dehydration, Robson's disease, Immunocompromised due to corticosteroids, Hypoxia Community acquired pneumonia Qualifiers: Laterality: unspecified laterality Qualified Code(s): J18.9 - Pneumonia, unspecified organism - Discharge Information Referrals: PCP,None [Primary Care Provider] - Forms: ED Department Discharge - My Orders Last 24 Hours: My Active Orders 10/28/18 13:47 UA RFX JUDE AND CULT IF INDIC [URIN] Stat 10/28/18 13:51 EKG Documentation Completion [RC] STAT 10/28/18 13:54 CULTURE STREP A CONFIRMATION [RM] Stat STREP SCRN A RAPID W CULT CONF [RM] Stat 10/28/18 14:01 RT Aerosol Therapy [RC] ASDIRECTED 10/28/18 15:13 Sodium Chloride 0.9% [Normal Saline] 1,000 ml IV STAT 10/28/18 16:01 Admission Status [Patient Status] [ADT] Stat - Assessment/Plan Last 24 Hours: My Active Orders 10/28/18 13:47 UA RFX JUDE AND CULT IF INDIC [URIN] Stat 10/28/18 13:51 EKG Documentation Completion [RC] STAT 10/28/18 13:54 CULTURE STREP A CONFIRMATION [RM] Stat STREP SCRN A RAPID W CULT CONF [RM] Stat 10/28/18 14:01 RT Aerosol Therapy [RC] ASDIRECTED 10/28/18 15:13 Sodium Chloride 0.9% [Normal Saline] 1,000 ml IV STAT 10/28/18 16:01 Admission Status [Patient Status] [ADT] Stat
[2018-10-28] MEDS ORDERED: Sodium Chloride 0.9% 1,000 ML IV ONE ×2 (13:50→15:13)
[2018-10-28] MEDS ORDERED: methylPREDNISolone Sodium Succinate 125 MG/2 ML SDV IVPUSH ONE (13:51)
[2018-10-28] MEDS ORDERED: Hydrocortisone Sodium Succinate 100 MG/2 ML SDV IVPUSH ONE (13:53)
[2018-10-28] MEDS ORDERED: Albuterol/Ipratropium 3.0-0.5 MG/3 ML Neb Soln NEB ONE (14:01)
--- NOTE | 2018-10-28 14:42 | CR ---
EXAMINATION: Portable chest radiograph. HISTORY: Shortness of breath. FINDINGS: The trachea is midline. The cardiomediastinal silhouette is within normal limits. Mild bibasilar atelectasis/infiltrate. No pleural effusion or pneumothorax. Osseous structures appear unremarkable. IMPRESSION: Mild bibasilar atelectasis/infiltrate.
[2018-10-28 14:44] LABS: CHLORIDE,CL 95 mmol/L (98-107); SODIUM,NA 131 mmol/L (136-148)
[2018-10-28] MEDS ORDERED: cefTRIAXone 1 GM in Premix Bag 1 BAG IV ONE (15:03)
[2018-10-28] MEDS ORDERED: Morphine 10 MG/ML Syringe IVPUSH PRN (16:08)
[2018-10-28] MEDS ORDERED: oxyCODONE 5 MG Tab PO PRN (16:08)
[2018-10-28] MEDS ORDERED: Acetaminophen 325 MG Tab PO PRN (16:08)
[2018-10-28] MEDS ORDERED: Ondansetron 4 MG Tab.DIS PO PRN (16:08)
[2018-10-28] MEDS ORDERED: Docusate Sodium 100 MG Cap PO PRN (16:08)
--- NOTE | 2018-10-28 16:37 | PCM.HP ---
H&P History of Present Illness - General Date of Service: 10/28/18 Admit Problem/Dx: Admission Diagnosis/Problem Admission Diagnosis/Problem Pneumonia Source of Information: Patient History Limitations: Reports: No Limitations - History of Present Illness Initial Comments - Free Text/Narative: The patient is a 43-year-old gentleman who had presented to the emergency department with a chief complaint of shortness of breath, fever and chills and productive sputum. The patient has required oxygen support to keep his saturations above 90%. While on oxygen he had desaturated into the low 80s. The patient reports that he had started to get sick 4 days ago and he has had similar episodes with pneumonia as well. 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 The patient has denied any chest pain. He has had no nausea or vomiting. The patient does not smoke or use alcohol. Onset of Symptoms: Reports: Gradual Duration of Symptoms: Reports: Day(s): Location: Reports: Chest Quality: Reports: Ache, Dull Severity: Moderate Improves with: Reports: Medication, Rest Worsens with: Reports: Breathing, Movement Context: Reports: Sick Contact Associated Symptoms: Reports: cough w sputum, Diaphoresis, Fever/Chills joints Pain Score (Numeric/FACES): 6 - Related Data Allergies/Adverse Reactions: Allergies Allergy/AdvReac Type Severity Reaction Status Date / Time No Known Allergies Allergy Verified 10/28/18 13:39 Home Medications: Home Meds Pantoprazole [ProTONIX] 40 mg PO DAILY 09/29/14 [History] Sertraline [Zoloft] 50 mg PO DAILY 09/29/14 [History] Magnesium Oxide [Magnesium] 400 mg PO DAILY 11/02/14 [History] Melatonin/Pyridoxine HCl (B6) [Melatonin 3 mg Tablet] 3 mg PO BEDTIME PRN [History] LORazepam 0.5 mg PO Q6HR PRN 12/12/14 [History] Fludrocortisone [Florinef] 0.05 mg PO BIDMEALS #60 tablet 12/16/14 [Rx] Canagliflozin [Invokana] 300 mg PO DAILY 12/11/15 [History] Ondansetron [Ondansetron ODT] 4 mg PO Q6H PRN 12/11/15 [History] Hydrocortisone 5 mg PO QPM #45 tablet 12/12/15 [Rx] Hydrocortisone 10 mg PO QAM #45 tablet 12/12/15 [Rx] glipiZIDE [Glipizide ER] 2 mg PO DAILY 01/02/17 [History] Past Medical History HEENT History: Reports: Impaired Vision Cardiovascular History: Reports: Cardiomyopathy, Hypertension Other Cardiovascular History: "fluid buildup on the heart" Respiratory History: Reports: None Gastrointestinal History: Reports: GERD Genitourinary History: Reports: None Musculoskeletal History: Reports: None Neurological History: Reports: None Psychiatric History: Reports: Depression Endocrine/Metabolic History: Reports: Robson's Disease, Diabetes, Type II, Obesity/BMI 30+ Other Endocrine/Metabolic History: adrenal insufficiency Hematologic History: Reports: Anesthesia Reaction Immunologic History: Reports: Immunosuppression Oncologic (Cancer) History: Reports: Other (See Below) 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 Diff - Past Surgical History HEENT Surgical History: Reports: None Cardiovascular Surgical History: Reports: None GI Surgical History: Reports: Cholecystectomy Other GI Surgeries/Procedures: spleenectomy Social & Family History - Family History Family Medical History: Noncontributory Respiratory: Reports: COPD, Other (See Below) Other Respiratory Family Hisory: pneumonia : Reports: Other (See Below) Other Family History: renal failure Endocrine/Metabolic: Reports: Diabetes, type II, Hypothyroidism Oncologic: Reports: Skin, Thyroid, Other (See Below) Other Oncologic Family History: stomach - Tobacco Use Smoking Status *Q: Never Smoker - Caffeine Use Caffeine Use: Reports: Soda Caffeine Use Comment: 3-4 drinks - Recreational Drug Use Recreational Drug Use: No - Living Situation & Occupation Living situation: Reports: Single Occupation: Employed H&P Review of Systems - Review of Systems: Review Of Systems: See Below General: Reports: Fever, Chills, Night Sweats HEENT: Reports: No Symptoms Pulmonary: Reports: Shortness of Breath, Cough, Sputum Cardiovascular: Reports: Dyspnea on Exertion, Lightheadedness Gastrointestinal: Reports: No Symptoms Genitourinary: Reports: No Symptoms Musculoskeletal: Reports: No Symptoms Skin: Reports: No Symptoms Psychiatric: Reports: No Symptoms Neurological: Reports: No Symptoms Hematologic/Lymphatic: Reports: No Symptoms Immunologic: Reports: No Symptoms Exam - Exam Exam: See Below - Vital Signs Vital Signs: Last Vital Signs Temp 36.8 C 10/28/18 13:36 Pulse 123 H 10/28/18 15:20 Resp 22 H 10/28/18 15:20 BP 122/73 10/28/18 15:20 Pulse Ox 95 10/28/18 15:21 Weight: 127.006 kg - Exam Quality Assessment: Supplemental Oxygen General: Alert, Oriented, Cooperative, Mild Distress HEENT: EACs Clear, EOMI, Hearing Intact, Nares Patent, PERRLA. No: Conjunctiva Clear (Right medial pterygium), Mucosa Moist & Hammett (Dry) Neck: Supple, Trachea Midline, +2 Carotid Pulse wo Bruit Lungs: Decreased Breath Sounds, Crackles (Bibasilar) Cardiovascular: Regular Rate, Regular Rhythm GI/Abdominal Exam: Normal Bowel Sounds, Soft, Non-Tender, No Distention, Other ( obese). No: Guarding, Rigid, Rebound (Male) Exam: Deferred Rectal (Males) Exam: Deferred Back Exam: Normal Inspection, Full Range of Motion Extremities: Normal Range of Motion, Non-Tender, Pedal Edema Skin: Warm, Dry, Intact, Other (Bronzing) Neurological: Cranial Nerves Intact Neuro Extensive - Mental Status: Alert, Oriented x3 Psychiatric: Alert, Normal Affect, Normal Mood - Patient Data Lab Results Last 24 hrs: Laboratory Results - last 24 hr 10/28/18 10/28/18 10/28/18 Range/Units 14:08 14:08 14:08 WBC 15.86 H (4.0-11.0) K/uL RBC 4.64 (4.50-5.90) M/uL Hgb 14.0 (13.0-17.0) g/dL Hct 41.9 (38.0-50.0) % MCV 90.3 (80.0-98.0) fL MCH 30.2 (27.0-32.0) pg MCHC 33.4 (31.0-37.0) g/dL RDW Std Deviation 46.7 (28.0-62.0) fl RDW Coeff of Carlos 14 (11.0-15.0) % Plt Count 191 (150-400) K/uL MPV 10.60 (7.40-12.00) fL Neut % (Auto) 66.9 (48.0-80.0) % Lymph % (Auto) 17.7 (16.0-40.0) % [place] % (Auto) 14.9 (0.0-15.0) % Eos % (Auto) 0.3 (0.0-7.0) % Baso % (Auto) 0.2 (0.0-1.5) % Neut # (Auto) 10.6 H (1.4-5.7) K/uL Lymph # (Auto) 2.8 H (0.6-2.4) K/uL [place] # (Auto) 2.4 H (0.0-0.8) K/uL Eos # (Auto) 0.1 (0.0-0.7) K/uL Baso # (Auto) 0.0 (0.0-0.1) K/uL Nucleated RBC % 0.0 /100WBC Nucleated RBCs # 0 K/uL Lactate 0.9 (0.20-2.00) mmol/L Sodium 131 L (136-148) mmol/L Potassium 4.1 (3.5-5.1) mmol/L Chloride 95 L (98-107) mmol/L Carbon Dioxide 22.4 (21.0-32.0) mmol/L BUN 23 H (7.0-18.0) mg/dL Creatinine 1.4 H (0.8-1.3) mg/dL Est Cr Clr Drug Dosing 83.97 mL/min Estimated GFR (MDRD) 54.8 ml/min Glucose 136 H (74-106) mg/dL Calcium 8.9 (8.5-10.1) mg/dL Magnesium (1.8-2.4) mg/dL Total Bilirubin 0.9 (0.2-1.0) mg/dL AST 25 (15-37) IU/L ALT 33 (14-63) IU/L Alkaline Phosphatase 57 (46-116) U/L Troponin I < 0.050 (0.000-0.056) ng/mL B-Natriuretic Peptide (<100) PG/ML Total Protein 7.9 (6.4-8.2) g/dL Albumin 3.6 (3.4-5.0) g/dL Globulin 4.3 H (2.6-4.0) g/dL Albumin/Globulin Ratio 0.8 L (0.9-1.6) TSH 3rd Generation (0.36-3.74) uIU/mL 10/28/18 10/28/18 Range/Units 14:08 14:08 WBC (4.0-11.0) K/uL RBC (4.50-5.90) M/uL Hgb (13.0-17.0) g/dL Hct (38.0-50.0) % MCV (80.0-98.0) fL MCH (27.0-32.0) pg MCHC (31.0-37.0) g/dL RDW Std Deviation (28.0-62.0) fl RDW Coeff of Carlos (11.0-15.0) % Plt Count (150-400) K/uL MPV (7.40-12.00) fL Neut % (Auto) (48.0-80.0) % Lymph % (Auto) (16.0-40.0) % [place] % (Auto) (0.0-15.0) % Eos % (Auto) (0.0-7.0) % Baso % (Auto) (0.0-1.5) % Neut # (Auto) (1.4-5.7) K/uL Lymph # (Auto) (0.6-2.4) K/uL [place] # (Auto) (0.0-0.8) K/uL Eos # (Auto) (0.0-0.7) K/uL Baso # (Auto) (0.0-0.1) K/uL Nucleated RBC % /100WBC Nucleated RBCs # K/uL Lactate (0.20-2.00) mmol/L Sodium (136-148) mmol/L Potassium (3.5-5.1) mmol/L Chloride (98-107) mmol/L Carbon Dioxide (21.0-32.0) mmol/L BUN (7.0-18.0) mg/dL Creatinine (0.8-1.3) mg/dL Est Cr Clr Drug Dosing mL/min Estimated GFR (MDRD) ml/min Glucose (74-106) mg/dL Calcium (8.5-10.1) mg/dL Magnesium 1.8 (1.8-2.4) mg/dL Total Bilirubin (0.2-1.0) mg/dL AST (15-37) IU/L ALT (14-63) IU/L Alkaline Phosphatase (46-116) U/L Troponin I (0.000-0.056) ng/mL B-Natriuretic Peptide 6 (<100) PG/ML Total Protein (6.4-8.2) g/dL Albumin (3.4-5.0) g/dL Globulin (2.6-4.0) g/dL Albumin/Globulin Ratio (0.9-1.6) TSH 3rd Generation 2.45 (0.36-3.74) uIU/mL Result Diagrams: 10/28/18 14:08 10/28/18 14:08 Jake Results Last 24 hrs: Microbiology 10/28/18 14:43 Anaerobic Blood Culture - Final Blood - Venous - Lab Draw 10/28/18 14:35 Anaerobic Blood Culture - Final Blood - Venous 10/28/18 13:54 Group A Streptococcus Rapid Screen - Final Throat NEGATIVE STREP A SCREEN REFERENCE RANGE: NEGATIVE 10/28/18 13:54 Influenza Type A Antigen Screen - Final Nasopharyngeal Swab NEGATIVE INFLUENZA A VIRUS AG REFERENCE RANGE: NEGATIVE Influenza Type B Antigen Screen - Final NEGATIVE INFLUENZA B VIRUS AG REFERENCE RANGE: NEGATIVE - Problem List (1) Sepsis SNOMED Code(s): 76124401 ICD Code: A41.9 - SEPSIS, UNSPECIFIED ORGANISM Status: Acute Priority: High Current Visit: Yes Qualifiers: Sepsis type: sepsis due to unspecified organism Qualified Code(s): A41.9 - Sepsis, unspecified organism (2) Acute respiratory failure SNOMED Code(s): 27150750 ICD Code: J96.00 - ACUTE RESPIRATORY FAILURE, UNSP W HYPOXIA OR HYPERCAPNIA Status: Acute Priority: High Current Visit: Yes Qualifiers: Respiratory failure complication: hypoxia Qualified Code(s): J96.01 - Acute respiratory failure with hypoxia (3) Community acquired pneumonia SNOMED Code(s): 610130611 ICD Code: J18.9 - PNEUMONIA, UNSPECIFIED ORGANISM Status: Acute Priority : High Current Visit: Yes Qualifiers: Laterality: unspecified laterality Qualified Code(s): J18.9 - Pneumonia, unspecified organism (4) Pembina's disease SNOMED Code(s): 494622917 ICD Code: E27.1 - PRIMARY ADRENOCORTICAL INSUFFICIENCY Status: Chronic Priority: High Current Visit: Yes (5) Dehydration SNOMED Code(s): 87513180 ICD Code: E86.0 - DEHYDRATION Status: Acute Priority: High Current Visit: Yes Problem List Initiated/Reviewed/Updated: Yes Orders Last 24hrs: Active Orders 24 hr Category Date Time Status Admission Status [Patient Status] [ADT] Stat ADT 10/28/18 16:01 Active Blood Glucose Check, Bedside [RC] WITHMEALSANDBED Care 10/28/18 16:08 Active Cardiac Monitoring [RC] CONTINUOUS Care 10/28/18 16:09 Active Diabetes Education [RC] Click to Edit Care 10/28/18 16:10 Active EKG Documentation Completion [RC] STAT Care 10/28/18 13:51 Active Oxygen Therapy [RC] PRN Care 10/28/18 16:08 Active RT Aerosol Therapy [RC] ASDIRECTED Care 10/28/18 14:01 Active Up ad Dorinda [RC] ASDIRECTED Care 10/28/18 16:08 Active VTE/DVT Education [RC] PER UNIT ROUTINE Care 10/28/18 16:08 Active Vital Signs [RC] Q4H Care 10/28/18 16:08 Active Consistent Carbohydrate Diet [DIET] Diet 10/28/18 Dinner Active CULTURE BLOOD [BC] Stat Lab 10/28/18 14:35 Results CULTURE BLOOD [BC] Stat Lab 10/28/18 14:43 Results CULTURE SPUTUM + SMEAR [] Stat Lab 10/28/18 16:08 Ordered CULTURE STREP A CONFIRMATION [RM] Stat Lab 10/28/18 13:54 Results STREP SCRN A RAPID W CULT CONF [RM] Stat Lab 10/28/18 13:54 Results UA RFX JAKE AND CULT IF INDIC [URIN] Stat Lab 10/28/18 13:47 Ordered Acetaminophen [Tylenol] Med 10/28/18 16:08 Active 650 mg PO Q4H PRN Docusate Sodium [Colace] Med 10/28/18 16:08 Active 100 mg PO BID PRN Heparin Sodium Med 10/28/18 16:15 Active 5,000 units SUBCUT Q8H Insulin Aspart [NovoLOG] Med 10/28/18 21:00 Active See Protocol SUBCUT ACBREAKFASTANDBED Morphine Med 10/28/18 16:08 Active 2 mg IVPUSH Q2H PRN Ondansetron [Zofran ODT] Med 10/28/18 16:08 Active 4 mg PO Q6H PRN Sodium Chloride 0.9% [Normal Saline] 1,000 ml Med 10/28/18 16:15 Active IV ASDIRECTED Temazepam [Restoril] Med 10/28/18 16:08 Active 15 mg PO BEDTIME PRN oxyCODONE Med 10/28/18 16:08 Active 5 mg PO Q4H PRN Blood Culture x2 Reflex Set [OM.PC] Stat Oth 10/28/18 14:00 Ordered Glucose Management Sub Q Reflex [OM.PC] Click To Edit Oth 10/28/18 16:08 Ordered Resuscitation Status Routine Resus Stat 10/28/18 16:08 Ordered Medication Orders Acetaminophen (Tylenol) 650 mg PO Q4H PRN PRN Reason: Pain (Mild 1-3)/fever Docusate Sodium (Colace) 100 mg PO BID PRN PRN Reason: Constipation Heparin Sodium (Porcine) (Heparin Sodium) 5,000 units SUBCUT Q8H LIVAN Sodium Chloride (Normal Saline) 1,000 mls @ 125 mls/hr IV ASDIRECTED LIVAN Insulin Aspart (Novolog) 0 unit SUBCUT ACBREAKFASTANDBED LIVAN; Protocol Morphine Sulfate (Morphine) 2 mg IVPUSH Q2H PRN PRN Reason: Pain (severe 7-10) Stop: 10/29/18 16:10 Ondansetron HCl (Zofran Odt) 4 mg PO Q6H PRN PRN Reason: nausea, able to take PO Oxycodone HCl (Oxycodone) 5 mg PO Q4H PRN PRN Reason: Pain (moderate 4-6) Temazepam (Restoril) 15 mg PO BEDTIME PRN PRN Reason: Sleep Assessment/Plan Comment:: The patient is a 43-year-old gentleman who will be admitted as an inpatient secondary to his pneumonia, hypoxic respiratory failure and picture complicated by Pembina's disease. Blood cultures are currently pending and sputum cultures been ordered. The patient originally had been started on ceftriaxone and had been given 1 dose in the emergency department. Because of the patient's immunocompromised status I will start him on broad-spectrum antibiotics to include Zosyn and vancomycin with pharmacy to dose. The patient will be on IV normal saline at 125 mL per hour. The patient's lactic acid is normal at this time. He is showing evidence of dehydration with hyponatremia hypochloremia and slight increase in his BUN/creatinine. This should resolve with fluids. The patient will also be kept oxygen now keep his saturations above 90%. He'll be kept on ADA diet and have Accu-Cheks before meals and at bedtime. The patient will also be anticoagulated with heparin for DVT prophylaxis. The patient only wants for clear signs of adrenal insufficiency but for now we'll keep the patient on his normal dose of steroids. The patient had Solu-Medrol and Solu- Cortef in the emergency department for now. The patient has also been recommended ambulate. Repeat laboratory testings a been ordered.
[2018-10-28] MEDS: Heparin Sodium 5,000 Units/ML Vial SUBCUT SCH (17:15)
[2018-10-28] MEDS: Sodium Chloride 0.9% 1,000 ML IV SCH (17:22)
[2018-10-28] MEDS: Piperacillin/Tazobactam 4.5 GM in Sodium Chloride 0.9% 100 ML IV SCH (17:25)
[2018-10-28] MEDS: Insulin Aspart 100 Units/ML 3 ML Pen SUBCUT SCH ×2 (17:32→21:35)
[2018-10-28] MEDS: Vancomycin 2 GM in Sodium Chloride 0.9% 500 ML IV SCH (18:46)
[2018-10-28] MEDS ORDERED: Insulin Aspart 100 Units/ML 3 ML Pen SUBCUT SCH (21:00)
[2018-10-29] MEDS: Heparin Sodium 5,000 Units/ML Vial SUBCUT SCH ×3 (00:59→15:29)
[2018-10-29] MEDS: Piperacillin/Tazobactam 4.5 GM in Sodium Chloride 0.9% 100 ML IV SCH ×3 (01:00→17:12)
[2018-10-29] MEDS: Temazepam 15 MG Cap PO PRN ×2 (03:36→22:03)
[2018-10-29] MEDS: Sodium Chloride 0.9% 1,000 ML IV SCH ×2 (04:40→15:29)
[2018-10-29] MEDS: Vancomycin 2 GM in Sodium Chloride 0.9% 500 ML IV SCH ×2 (06:28→18:34)
[2018-10-29] MEDS: Insulin Aspart 100 Units/ML 3 ML Pen SUBCUT SCH ×4 (06:29→22:00)
[2018-10-29] MEDS ORDERED: LORazepam 0.5 MG Tab PO PRN (06:59)
--- NOTE | 2018-10-29 07:58 | PCM.PN ---
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 The patient today is feeling rather fatigued. He has denied any fever or chills. The patient has denied any pain. He is currently on oxygen. Functional Status: Reports: Pain Controlled - Review of Systems General: Reports: Weakness, Fatigue HEENT: Reports: No Symptoms Pulmonary: Reports: Shortness of Breath, Cough Cardiovascular: Reports: No Symptoms Gastrointestinal: Reports: No Symptoms Genitourinary: Reports: No Symptoms Musculoskeletal: Reports: No Symptoms Skin: Reports: No Symptoms Neurological: Reports: No Symptoms Psychiatric: Reports: No Symptoms - Patient Data Vitals - Most Recent: Last Vital Signs Temp 37.0 C 10/29/18 07:56 Pulse 94 10/29/18 07:56 Resp 28 H 10/29/18 07:56 BP 107/49 L 10/29/18 07:56 Pulse Ox 93 L 10/29/18 07:56 Weight - Most Recent: 162.93 kg I&O - Last 24 Hours: Intake & Output 10/28/18 10/29/18 10/29/18 22:59 06:59 14:59 Intake Total 600 1300 Balance 600 1300 Lab Results Last 24 Hours: Laboratory Results - last 24 hr 10/28/18 10/28/18 10/28/18 Range/Units 14:08 14:08 14:08 WBC 15.86 H (4.0-11.0) K/uL RBC 4.64 (4.50-5.90) M/uL Hgb 14.0 (13.0-17.0) g/dL Hct 41.9 (38.0-50.0) % MCV 90.3 (80.0-98.0) fL MCH 30.2 (27.0-32.0) pg MCHC 33.4 (31.0-37.0) g/dL RDW Std Deviation 46.7 (28.0-62.0) fl RDW Coeff of Carlos 14 (11.0-15.0) % Plt Count 191 (150-400) K/uL MPV 10.60 (7.40-12.00) fL Neut % (Auto) 66.9 (48.0-80.0) % Lymph % (Auto) 17.7 (16.0-40.0) % [place] % (Auto) 14.9 (0.0-15.0) % Eos % (Auto) 0.3 (0.0-7.0) % Baso % (Auto) 0.2 (0.0-1.5) % Neut # (Auto) 10.6 H (1.4-5.7) K/uL Lymph # (Auto) 2.8 H (0.6-2.4) K/uL [place] # (Auto) 2.4 H (0.0-0.8) K/uL Eos # (Auto) 0.1 (0.0-0.7) K/uL Baso # (Auto) 0.0 (0.0-0.1) K/uL Add Manual Diff Neutrophils % (Manual) (48.0-80.0) % Band Neutrophils % % Lymphocytes % (Manual) (16.0-40.0) % Monocytes % (Manual) (0.0-15.0) % Basophils % (Manual) (0.0-1.5) % Nucleated RBC % 0.0 /100WBC Absolute Seg Neuts (1.4-5.7) Band Neutrophils # Lymphocytes # (Manual) (0.6-2.4) Monocytes # (Manual) (0.0-0.8) Basophils # (Manual) (0.0-0.1) Nucleated RBCs # 0 K/uL Lactate 0.9 (0.20-2.00) mmol/L Sodium 131 L (136-148) mmol/L Potassium 4.1 (3.5-5.1) mmol/L Chloride 95 L (98-107) mmol/L Carbon Dioxide 22.4 (21.0-32.0) mmol/L BUN 23 H (7.0-18.0) mg/dL Creatinine 1.4 H (0.8-1.3) mg/dL Est Cr Clr Drug Dosing 83.97 mL/min Estimated GFR (MDRD) 54.8 ml/min Glucose 136 H (74-106) mg/dL POC Glucose (60-110) mg/dL Calcium 8.9 (8.5-10.1) mg/dL Magnesium (1.8-2.4) mg/dL Total Bilirubin 0.9 (0.2-1.0) mg/dL AST 25 (15-37) IU/L ALT 33 (14-63) IU/L Alkaline Phosphatase 57 (46-116) U/L Troponin I < 0.050 (0.000-0.056) ng/mL B-Natriuretic Peptide (<100) PG/ML Total Protein 7.9 (6.4-8.2) g/dL Albumin 3.6 (3.4-5.0) g/dL Globulin 4.3 H (2.6-4.0) g/dL Albumin/Globulin Ratio 0.8 L (0.9-1.6) TSH 3rd Generation (0.36-3.74) uIU/mL Urine Color Urine Appearance Urine pH (5.0-8.0) Ur Specific [place] (1.001-1.035) Urine Protein (NEGATIVE) mg/dL Urine Glucose (UA) (NEGATIVE) mg/dL Urine Ketones (NEGATIVE) mg/dL Urine Occult Blood (NEGATIVE) Urine Nitrite (NEGATIVE) Urine Bilirubin (NEGATIVE) Urine Urobilinogen (<2.0) EU/dL Ur Leukocyte Esterase (NEGATIVE) Urine RBC (0-2/HPF) Urine WBC (0-5/HPF) Ur Epithelial Cells (NONE-FEW) Amorphous Sediment (NEGATIVE) Urine Bacteria (NEGATIVE) Urine Mucus (NONE-MOD) 10/28/18 10/28/18 10/28/18 Range/Units 14:08 14:08 17:23 WBC (4.0-11.0) K/uL RBC (4.50-5.90) M/uL Hgb (13.0-17.0) g/dL Hct (38.0-50.0) % MCV (80.0-98.0) fL MCH (27.0-32.0) pg MCHC (31.0-37.0) g/dL RDW Std Deviation (28.0-62.0) fl RDW Coeff of Carlos (11.0-15.0) % Plt Count (150-400) K/uL MPV (7.40-12.00) fL Neut % (Auto) (48.0-80.0) % Lymph % (Auto) (16.0-40.0) % [place] % (Auto) (0.0-15.0) % Eos % (Auto) (0.0-7.0) % Baso % (Auto) (0.0-1.5) % Neut # (Auto) (1.4-5.7) K/uL Lymph # (Auto) (0.6-2.4) K/uL [place] # (Auto) (0.0-0.8) K/uL Eos # (Auto) (0.0-0.7) K/uL Baso # (Auto) (0.0-0.1) K/uL Add Manual Diff Neutrophils % (Manual) (48.0-80.0) % Band Neutrophils % % Lymphocytes % (Manual) (16.0-40.0) % Monocytes % (Manual) (0.0-15.0) % Basophils % (Manual) (0.0-1.5) % Nucleated RBC % /100WBC Absolute Seg Neuts (1.4-5.7) Band Neutrophils # Lymphocytes # (Manual) (0.6-2.4) Monocytes # (Manual) (0.0-0.8) Basophils # (Manual) (0.0-0.1) Nucleated RBCs # K/uL Lactate (0.20-2.00) mmol/L Sodium (136-148) mmol/L Potassium (3.5-5.1) mmol/L Chloride (98-107) mmol/L Carbon Dioxide (21.0-32.0) mmol/L BUN (7.0-18.0) mg/dL Creatinine (0.8-1.3) mg/dL Est Cr Clr Drug Dosing mL/min Estimated GFR (MDRD) ml/min Glucose (74-106) mg/dL POC Glucose 143 H (60-110) mg/dL Calcium (8.5-10.1) mg/dL Magnesium 1.8 (1.8-2.4) mg/dL Total Bilirubin (0.2-1.0) mg/dL AST (15-37) IU/L ALT (14-63) IU/L Alkaline Phosphatase (46-116) U/L Troponin I (0.000-0.056) ng/mL B-Natriuretic Peptide 6 (<100) PG/ML Total Protein (6.4-8.2) g/dL Albumin (3.4-5.0) g/dL Globulin (2.6-4.0) g/dL Albumin/Globulin Ratio (0.9-1.6) TSH 3rd Generation 2.45 (0.36-3.74) uIU/mL Urine Color Urine Appearance Urine pH (5.0-8.0) Ur Specific [place] (1.001-1.035) Urine Protein (NEGATIVE) mg/dL Urine Glucose (UA) (NEGATIVE) mg/dL Urine Ketones (NEGATIVE) mg/dL Urine Occult Blood (NEGATIVE) Urine Nitrite (NEGATIVE) Urine Bilirubin (NEGATIVE) Urine Urobilinogen (<2.0) EU/dL Ur Leukocyte Esterase (NEGATIVE) Urine RBC (0-2/HPF) Urine WBC (0-5/HPF) Ur Epithelial Cells (NONE-FEW) Amorphous Sediment (NEGATIVE) Urine Bacteria (NEGATIVE) Urine Mucus (NONE-MOD) 10/28/18 10/29/18 10/29/18 Range/Units 21:09 05:18 05:18 WBC 15.64 H (4.0-11.0) K/uL RBC 4.10 L (4.50-5.90) M/uL Hgb 12.0 L (13.0-17.0) g/dL Hct 37.6 L (38.0-50.0) % MCV 91.7 (80.0-98.0) fL MCH 29.3 (27.0-32.0) pg MCHC 31.9 (31.0-37.0) g/dL RDW Std Deviation 48.6 (28.0-62.0) fl RDW Coeff of [place] 14 (11.0-15.0) % Plt Count 190 (150-400) K/uL MPV 11.00 (7.40-12.00) fL Neut % (Auto) (48.0-80.0) % Lymph % (Auto) (16.0-40.0) % [place] % (Auto) (0.0-15.0) % Eos % (Auto) (0.0-7.0) % Baso % (Auto) (0.0-1.5) % Neut # (Auto) (1.4-5.7) K/uL Lymph # (Auto) (0.6-2.4) K/uL [place] # (Auto) (0.0-0.8) K/uL Eos # (Auto) (0.0-0.7) K/uL Baso # (Auto) (0.0-0.1) K/uL Add Manual Diff YES Neutrophils % (Manual) 61 (48.0-80.0) % Band Neutrophils % 15 % Lymphocytes % (Manual) 14 L (16.0-40.0) % Monocytes % (Manual) 9 (0.0-15.0) % Basophils % (Manual) 1 (0.0-1.5) % Nucleated RBC % 0.0 /100WBC Absolute Seg Neuts 9.5 H (1.4-5.7) Band Neutrophils # 2.3 Lymphocytes # (Manual) 2.2 (0.6-2.4) Monocytes # (Manual) 1.4 H (0.0-0.8) Basophils # (Manual) 0.2 H (0.0-0.1) Nucleated RBCs # 0 K/uL Lactate (0.20-2.00) mmol/L Sodium 135 L (136-148) mmol/L Potassium 4.2 (3.5-5.1) mmol/L Chloride 100 (98-107) mmol/L Carbon Dioxide 24.0 (21.0-32.0) mmol/L BUN 27 H (7.0-18.0) mg/dL Creatinine 1.4 H (0.8-1.3) mg/dL Est Cr Clr Drug Dosing 85.06 mL/min Estimated GFR (MDRD) 54.8 ml/min Glucose 122 H (74-106) mg/dL POC Glucose 217 H (60-110) mg/dL Calcium 8.2 L (8.5-10.1) mg/dL Magnesium 1.8 (1.8-2.4) mg/dL Total Bilirubin 0.5 (0.2-1.0) mg/dL AST 21 (15-37) IU/L ALT 31 (14-63) IU/L Alkaline Phosphatase 47 (46-116) U/L Troponin I (0.000-0.056) ng/mL B-Natriuretic Peptide (<100) PG/ML Total Protein 7.1 (6.4-8.2) g/dL Albumin 3.1 L (3.4-5.0) g/dL Globulin 4.0 (2.6-4.0) g/dL Albumin/Globulin Ratio 0.8 L (0.9-1.6) TSH 3rd Generation (0.36-3.74) uIU/mL Urine Color Urine Appearance Urine pH (5.0-8.0) Ur Specific [place] (1.001-1.035) Urine Protein (NEGATIVE) mg/dL Urine Glucose (UA) (NEGATIVE) mg/dL Urine Ketones (NEGATIVE) mg/dL Urine Occult Blood (NEGATIVE) Urine Nitrite (NEGATIVE) Urine Bilirubin (NEGATIVE) Urine Urobilinogen (<2.0) EU/dL Ur Leukocyte Esterase (NEGATIVE) Urine RBC (0-2/HPF) Urine WBC (0-5/HPF) Ur Epithelial Cells (NONE-FEW) Amorphous Sediment (NEGATIVE) Urine Bacteria (NEGATIVE) Urine Mucus (NONE-MOD) 10/29/18 10/29/18 Range/Units 05:30 06:18 WBC (4.0-11.0) K/uL RBC (4.50-5.90) M/uL Hgb (13.0-17.0) g/dL Hct (38.0-50.0) % MCV (80.0-98.0) fL MCH (27.0-32.0) pg MCHC (31.0-37.0) g/dL RDW Std Deviation (28.0-62.0) fl RDW Coeff of [place] (11.0-15.0) % Plt Count (150-400) K/uL MPV (7.40-12.00) fL Neut % (Auto) (48.0-80.0) % Lymph % (Auto) (16.0-40.0) % [place] % (Auto) (0.0-15.0) % Eos % (Auto) (0.0-7.0) % Baso % (Auto) (0.0-1.5) % Neut # (Auto) (1.4-5.7) K/uL Lymph # (Auto) (0.6-2.4) K/uL [place] # (Auto) (0.0-0.8) K/uL Eos # (Auto) (0.0-0.7) K/uL Baso # (Auto) (0.0-0.1) K/uL Add Manual Diff Neutrophils % (Manual) (48.0-80.0) % Band Neutrophils % % Lymphocytes % (Manual) (16.0-40.0) % Monocytes % (Manual) (0.0-15.0) % Basophils % (Manual) (0.0-1.5) % Nucleated RBC % /100WBC Absolute Seg Neuts (1.4-5.7) Band Neutrophils # Lymphocytes # (Manual) (0.6-2.4) Monocytes # (Manual) (0.0-0.8) Basophils # (Manual) (0.0-0.1) Nucleated RBCs # K/uL Lactate (0.20-2.00) mmol/L Sodium (136-148) mmol/L Potassium (3.5-5.1) mmol/L Chloride (98-107) mmol/L Carbon Dioxide (21.0-32.0) mmol/L BUN (7.0-18.0) mg/dL Creatinine (0.8-1.3) mg/dL Est Cr Clr Drug Dosing mL/min Estimated GFR (MDRD) ml/min Glucose (74-106) mg/dL POC Glucose 116 H (60-110) mg/dL Calcium (8.5-10.1) mg/dL Magnesium (1.8-2.4) mg/dL Total Bilirubin (0.2-1.0) mg/dL AST (15-37) IU/L ALT (14-63) IU/L Alkaline Phosphatase (46-116) U/L Troponin I (0.000-0.056) ng/mL B-Natriuretic Peptide (<100) PG/ML Total Protein (6.4-8.2) g/dL Albumin (3.4-5.0) g/dL Globulin (2.6-4.0) g/dL Albumin/Globulin Ratio (0.9-1.6) TSH 3rd Generation (0.36-3.74) uIU/mL Urine Color YELLOW Urine Appearance CLEAR Urine pH 5.5 (5.0-8.0) Ur Specific [place] 1.020 (1.001-1.035) Urine Protein NEGATIVE (NEGATIVE) mg/dL Urine Glucose (UA) NEGATIVE (NEGATIVE) mg/dL Urine Ketones NEGATIVE (NEGATIVE) mg/dL Urine Occult Blood TRACE-LYSED H (NEGATIVE) Urine Nitrite NEGATIVE (NEGATIVE) Urine Bilirubin NEGATIVE (NEGATIVE) Urine Urobilinogen 0.2 (<2.0) EU/dL Ur Leukocyte Esterase NEGATIVE (NEGATIVE) Urine RBC 0-1 (0-2/HPF) Urine WBC 0-1 (0-5/HPF) Ur Epithelial Cells FEW (NONE-FEW) Amorphous Sediment LIGHT (NEGATIVE) Urine Bacteria FEW (NEGATIVE) Urine Mucus LIGHT (NONE-MOD) Jake Results Last 24 Hours: Microbiology 10/28/18 02:55 Gram Stain - Preliminary Sputum - Expectorated 10/28/18 14:43 Anaerobic Blood Culture - Final Blood - Venous - Lab Draw 10/28/18 14:35 Anaerobic Blood Culture - Final Blood - Venous 10/28/18 13:54 Group A Streptococcus Rapid Screen - Final Throat NEGATIVE STREP A SCREEN REFERENCE RANGE: NEGATIVE 10/28/18 13:54 Influenza Type A Antigen Screen - Final Nasopharyngeal Swab NEGATIVE INFLUENZA A VIRUS AG REFERENCE RANGE: NEGATIVE Influenza Type B Antigen Screen - Final NEGATIVE INFLUENZA B VIRUS AG REFERENCE RANGE: NEGATIVE Med Orders - Current: Current Medications Acetaminophen (Tylenol) 650 mg PO Q4H PRN PRN Reason: Pain (Mild 1-3)/fever Last Admin: 10/29/18 04:44 Dose: 650 mg Docusate Sodium (Colace) 100 mg PO BID PRN PRN Reason: Constipation Fludrocortisone Acetate (Florinef) 0.05 mg PO BIDMEALS [facility] Heparin Sodium (Porcine) (Heparin Sodium) 5,000 units SUBCUT Q8H [facility] Last Admin: 10/29/18 00:59 Dose: 5,000 units Hydrocortisone (Cortef) 10 mg PO Q12HR [facility] Sodium Chloride (Normal Saline) 1,000 mls @ 125 mls/hr IV ASDIRECTED [facility] Last Admin: 10/29/18 04:40 Dose: 125 mls/hr Piperacillin Sod/Tazobactam (Sod 4.5 gm/ Sodium Chloride) 100 mls @ 100 mls/hr IV Q8H [facility] Last Admin: 10/29/18 01:00 Dose: 100 mls/hr Vancomycin HCl 2 gm/ Sodium (Chloride) 500 mls @ 250 mls/hr IV Q12H [facility] Last Admin: 10/29/18 06:28 Dose: 250 mls/hr Insulin Aspart (Novolog) 0 unit SUBCUT QIDACANDBED [facility]; Protocol Last Admin: 10/29/18 06:29 Dose: Not Given Lorazepam (Ativan) 0.5 mg PO Q6HR PRN PRN Reason: Anxiety Magnesium Oxide (Magnesium Oxide) 400 mg PO DAILY [facility] Morphine Sulfate (Morphine) 2 mg IVPUSH Q2H PRN PRN Reason: Pain (severe 7-10) Stop: 10/29/18 16:10 Ondansetron HCl (Zofran Odt) 4 mg PO Q6H PRN PRN Reason: nausea, able to take PO Oxycodone HCl (Oxycodone) 5 mg PO Q4H PRN PRN Reason: Pain (moderate 4-6) Pantoprazole Sodium (Protonix) 40 mg PO DAILY [facility] Sertraline HCl (Zoloft) 50 mg PO DAILY [facility] Temazepam (Restoril) 15 mg PO BEDTIME PRN PRN Reason: Sleep Last Admin: 10/29/18 03:36 Dose: 15 mg Vancomycin HCl (Pharmacy To Dose - Vancomycin) 1 dose .XX ASDIRECTED [facility] Discontinued Medications Albuterol/Ipratropium (Duoneb 3.0-0.5 Mg/3 Ml) 3 ml NEB ONETIME ONE Stop: 10/28/18 14:02 Last Admin: 10/28/18 14:31 Dose: 3 ml Hydrocortisone Sodium Succinate (Solu-Cortef) 100 mg IVPUSH ONETIME ONE Stop: 10/28/18 13:54 Last Admin: 10/28/18 14:09 Dose: 100 mg Sodium Chloride (Normal Saline) 1,000 mls @ 999 mls/hr IV BOLUS ONE Stop: 10/28/18 14:50 Last Admin: 10/28/18 14:09 Dose: 999 mls/hr Ceftriaxone Sodium/Dextrose 1 (gm/ Premix) 50 mls @ 100 mls/hr IV ONETIME ONE Stop: 10/28/18 15:32 Last Admin: 10/28/18 15:20 Dose: 100 mls/hr Sodium Chloride (Normal Saline) 1,000 mls @ 999 mls/hr IV STAT ONE Stop: 10/28/18 16:13 Last Admin: 10/28/18 15:20 Dose: 999 mls/hr Insulin Aspart (Novolog) 0 unit SUBCUT ACBREAKFASTANDBED [facility]IV[facility]; Protocol Methylprednisolone Sodium Succinate (Solu-Medrol) 125 mg IVPUSH ONETIME ONE Stop: 10/28/18 13:52 Last Admin: 10/28/18 13:56 Dose: Not Given - Exam Quality Assessment: Supplemental Oxygen General: Alert, Oriented, Cooperative, Lethargic HEENT: Pupils Equal, Pupils Reactive, EOMI. No: Mucous Membr. Moist/[place] Neck: Supple, Trachea Midline Lungs: Decreased Breath Sounds, Crackles, Rales Cardiovascular: Regular Rate, Regular Rhythm GI/Abdominal Exam: Normal Bowel Sounds, Soft, Non-Tender, No Distention, Other ( Obese) (Male) Exam: Deferred Back Exam: Normal Inspection, Full Range of Motion Extremities: Normal Inspection, Normal Range of Motion, No Pedal Edema Skin: Warm, Dry, Intact Neurological: No New Focal Deficit Psy/Mental Status: Alert, Normal Affect, Normal Mood - Problem List & Annotations (1) Sepsis SNOMED Code(s): 36984850 Code(s): A41.9 - SEPSIS, UNSPECIFIED ORGANISM Status: Acute Priority: High Current Visit: Yes Qualifiers: Sepsis type: sepsis due to unspecified organism Qualified Code(s): A41.9 - Sepsis, unspecified organism Annotation/Comment:: Cultures pending (2) Acute respiratory failure SNOMED Code(s): 81673801 Code(s): J96.00 - ACUTE RESPIRATORY FAILURE, UNSP W HYPOXIA OR HYPERCAPNIA Status: Acute Priority: High Current Visit: Yes Qualifiers: Respiratory failure complication: hypoxia Qualified Code(s): J96.01 - Acute respiratory failure with hypoxia (3) Community acquired pneumonia SNOMED Code(s): 393988803 Code(s): J18.9 - PNEUMONIA, UNSPECIFIED ORGANISM Status: Acute Priority: High Current Visit: Yes Qualifiers: Laterality: unspecified laterality Qualified Code(s): J18.9 - Pneumonia, unspecified organism (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 - PRIMARY ADRENOCORTICAL INSUFFICIENCY Status: Chronic Priority: High Current Visit: Yes (5) Dehydration SNOMED Code(s): 41718178 Code(s): E86.0 - DEHYDRATION Status: Acute Priority: High Current Visit : Yes (6) History of [place]'s disease SNOMED Code(s): 119315331 Code(s): Z86.39 - PERSONAL HISTORY OF ENDO, NUTRITIONAL AND METABOLIC DISEASE Status: Chronic Priority: Medium Current Visit: Yes - Problem List Review Problem List Initiated/Reviewed/Updated: Yes - My Orders Last 24 Hours: My Active Orders 10/28/18 16:08 Blood Glucose Check, Bedside [] WITHMEALSANDBED Oxygen Therapy [] PRN Up ad Dorinda [RC] ASDIRECTED VTE/DVT Education [] Q12H Vital Signs [RC] Q4H Acetaminophen [Tylenol] 650 mg PO Q4H PRN Docusate Sodium [Colace] 100 mg PO BID PRN Morphine 2 mg IVPUSH Q2H PRN Ondansetron [Zofran ODT] 4 mg PO Q6H PRN Temazepam [Restoril] 15 mg PO BEDTIME PRN oxyCODONE 5 mg PO Q4H PRN Glucose Management Sub Q Reflex [OM.PC] Click To Edit Resuscitation Status Routine 10/28/18 16:09 Telemetry Monitoring [Cardiac Monitoring] [] Q8H 10/28/18 16:10 Diabetes Education [] Q12H 10/28/18 16:15 Heparin Sodium 5,000 units SUBCUT Q8H Sodium Chloride 0.9% [Normal Saline] 1,000 ml IV ASDIRECTED 10/28/18 17:00 Pharmacy to Dose - Vancomycin 1 dose .XX ASDIRECTED 10/28/18 17:15 Piperacillin/Tazobactam [Piperacil-Tazobact] 4.5 gm Sodium Chloride 0.9% [ Normal Saline] 100 ml IV Q8H 10/28/18 17:30 Insulin Aspart [NovoLOG] See Protocol SUBCUT QIDACANDBED 10/28/18 18:45 Vancomycin 2 gm Sodium Chloride 0.9% [Normal Saline] 500 ml IV Q12H 10/28/18 Dinner ADA Diabetic [[place] [employer] Diet] [DIET] 10/29/18 06:59 LORazepam [Ativan] 0.5 mg PO Q6HR PRN 10/29/18 08:00 Fludrocortisone [Florinef] 0.05 mg PO BIDMEALS 10/29/18 09:00 Hydrocortisone [Cortef] 10 mg PO Q12HR Magnesium Oxide 400 mg PO DAILY Pantoprazole [ProTONIX] 40 mg PO DAILY Sertraline [Zoloft] 50 mg PO DAILY 10/30/18 05:45 VANCOMYCIN TROUGH [CHEM] Timed - Plan Plan:: The patient is a 43-year-old gentleman who will be admitted as an inpatient secondary to his pneumonia, hypoxic respiratory failure and 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 Blood cultures are currently pending and sputum cultures been ordered. The patient originally had been started on ceftriaxone and had been given 1 dose in the emergency department. Because of the patient's immunocompromised status I will start him on broad-spectrum antibiotics to include Zosyn and vancomycin with pharmacy to dose. The patient will be on IV normal saline at 125 mL per hour. The patient's lactic acid is normal at this time. He is showing evidence of dehydration with hyponatremia hypochloremia and slight increase in his BUN/creatinine. This should resolve with fluids. The patient will also be kept oxygen now keep his saturations above 90%. He'll be kept on ADA diet and have Accu-Cheks before meals and at bedtime. The patient will also be anticoagulated with heparin for DVT prophylaxis. The patient only wants for clear signs of adrenal insufficiency but for now we'll keep the patient on his normal dose of steroids. The patient had Solu-Medrol and Solu- Cortef in the emergency department for now. The patient has also been recommended ambulate. Repeat laboratory testings a been ordered. The patient is a 43-year-old gentleman who is ill with a number of chronic medical issues as well as pneumonia. The patient is hypoxic and he'll be kept on oxygen keep his saturations above 90%. 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 The patient's sodium is currently at 133 mmol per liter and does not appear to be an addisonian crisis this will be monitored very closely with the patient's input and output as well as his vital signs. He is significantly dehydrated and will continue on his current fluids. The patient is also on Zosyn and vancomycin and these antibiotics will be continued until cultures have returned. He is still anticoagulated on heparin for DVT prophylaxis. The patient has been encouraged to ambulate. I've ordered repeat laboratory tests from morning. The patient be continued on diet as tolerated.
[2018-10-29] MEDS: Pantoprazole 40 MG Tab.CR PO SCH (09:19)
[2018-10-29] MEDS: Magnesium Oxide 400 MG Tab PO SCH (09:19)
[2018-10-29] MEDS: Sertraline 50 MG Tab PO SCH (09:20)
[2018-10-29] MEDS: Hydrocortisone 20 MG Tab PO SCH ×2 (09:20→21:50)
[2018-10-29] MEDS: Fludrocortisone 0.1 MG Tab PO SCH ×2 (09:22→17:14)
[2018-10-29] MEDS: methylPREDNISolone Sodium Succinate 125 MG/2 ML SDV IVPUSH SCH ×2 (10:44→18:29)
[2018-10-30] MEDS: Heparin Sodium 5,000 Units/ML Vial SUBCUT SCH ×3 (01:15→16:11)
[2018-10-30] MEDS: Piperacillin/Tazobactam 4.5 GM in Sodium Chloride 0.9% 100 ML IV SCH ×3 (01:22→17:25)
[2018-10-30] MEDS: methylPREDNISolone Sodium Succinate 125 MG/2 ML SDV IVPUSH SCH ×3 (01:23→17:21)
[2018-10-30] MEDS: Sodium Chloride 0.9% 1,000 ML IV SCH ×2 (01:30→13:46)
[2018-10-30] MEDS: Vancomycin 2 GM in Sodium Chloride 0.9% 500 ML IV SCH ×3 (06:53→22:00)
[2018-10-30] MEDS: Insulin Aspart 100 Units/ML 3 ML Pen SUBCUT SCH ×5 (06:54→22:00)
[2018-10-30 07:07] LABS: CHLORIDE,CL 101 mmol/L (98-107); SODIUM,NA 136 mmol/L (136-148)
[2018-10-30] MEDS: Sertraline 50 MG Tab PO SCH (08:34)
[2018-10-30] MEDS: Magnesium Oxide 400 MG Tab PO SCH (08:34)
[2018-10-30] MEDS: Pantoprazole 40 MG Tab.CR PO SCH (08:34)
[2018-10-30] MEDS: Hydrocortisone 20 MG Tab PO SCH ×2 (08:35→21:55)
[2018-10-30] MEDS: Fludrocortisone 0.1 MG Tab PO SCH ×2 (08:36→17:20)
--- NOTE | 2018-10-30 09:24 | PCM.PN ---
- General Info Date of Service: 10/30/18 Admission Dx/Problem (Free Text): Admission Diagnosis/Problem Admission Diagnosis/Problem Pneumonia, Robson's disease, sepsis Subjective Update: The patient is a 43-year-old gentleman who was admitted to acute hospitalization on October 28, 2018. This was out of concern to the patient having pneumonia and currently being in an immunocompromise state. The patient does have adrenal insufficiency and he has on mineralocorticoids. The patient today says that he is doing much better. He says he is breathing better. He has denied fever or chills. He reports that he has been tolerating his diet. Functional Status: Reports: Pain Controlled - Review of Systems General: Reports: No Symptoms HEENT: Reports: No Symptoms Pulmonary: Reports: Shortness of Breath Cardiovascular: Reports: No Symptoms Gastrointestinal: Reports: No Symptoms Genitourinary: Reports: No Symptoms Musculoskeletal: Reports: No Symptoms Skin: Reports: No Symptoms Neurological: Reports: No Symptoms Psychiatric: Reports: No Symptoms - Patient Data Vitals - Most Recent: Last Vital Signs Temp 36.2 C 10/30/18 08:00 Pulse 84 10/30/18 08:00 Resp 22 H 10/30/18 08:00 BP 130/58 L 10/30/18 08:00 Pulse Ox 92 L 10/30/18 08:00 Weight - Most Recent: 162.93 kg I&O - Last 24 Hours: Intake & Output 10/29/18 10/30/18 10/30/18 22:59 06:59 14:59 Intake Total 3475 4064 Output Total 500 1200 Balance 2975 2864 Lab Results Last 24 Hours: Laboratory Results - last 24 hr 10/29/18 10/29/18 10/29/18 Range/Units 11:33 16:22 17:46 WBC (4.0-11.0) K/uL RBC (4.50-5.90) M/uL Hgb (13.0-17.0) g/dL Hct (38.0-50.0) % MCV (80.0-98.0) fL MCH (27.0-32.0) pg MCHC (31.0-37.0) g/dL RDW Std Deviation (28.0-62.0) fl RDW Coeff of Carlos (11.0-15.0) % Plt Count (150-400) K/uL MPV (7.40-12.00) fL Neut % (Auto) (48.0-80.0) % Lymph % (Auto) (16.0-40.0) % [place] % (Auto) (0.0-15.0) % Eos % (Auto) (0.0-7.0) % Baso % (Auto) (0.0-1.5) % Neut # (Auto) (1.4-5.7) K/uL Lymph # (Auto) (0.6-2.4) K/uL [place] # (Auto) (0.0-0.8) K/uL Eos # (Auto) (0.0-0.7) K/uL Baso # (Auto) (0.0-0.1) K/uL Nucleated RBC % /100WBC Nucleated RBCs # K/uL Sodium (136-148) mmol/L Potassium (3.5-5.1) mmol/L Chloride (98-107) mmol/L Carbon Dioxide (21.0-32.0) mmol/L BUN (7.0-18.0) mg/dL Creatinine (0.8-1.3) mg/dL Est Cr Clr Drug Dosing mL/min Estimated GFR (MDRD) ml/min Glucose (74-106) mg/dL POC Glucose 111 H 198 H 240 H (60-110) mg/dL Calcium (8.5-10.1) mg/dL Magnesium (1.8-2.4) mg/dL Total Bilirubin (0.2-1.0) mg/dL AST (15-37) IU/L ALT (14-63) IU/L Alkaline Phosphatase (46-116) U/L Total Protein (6.4-8.2) g/dL Albumin (3.4-5.0) g/dL Globulin (2.6-4.0) g/dL Albumin/Globulin Ratio (0.9-1.6) Vancomycin Trough (5.0-10.0) ug/mL 10/29/18 10/30/18 10/30/18 Range/Units 21:58 05:47 05:55 WBC (4.0-11.0) K/uL RBC (4.50-5.90) M/uL Hgb (13.0-17.0) g/dL Hct (38.0-50.0) % MCV (80.0-98.0) fL MCH (27.0-32.0) pg MCHC (31.0-37.0) g/dL RDW Std Deviation (28.0-62.0) fl RDW Coeff of Carlos (11.0-15.0) % Plt Count (150-400) K/uL MPV (7.40-12.00) fL Neut % (Auto) (48.0-80.0) % Lymph % (Auto) (16.0-40.0) % [place] % (Auto) (0.0-15.0) % Eos % (Auto) (0.0-7.0) % Baso % (Auto) (0.0-1.5) % Neut # (Auto) (1.4-5.7) K/uL Lymph # (Auto) (0.6-2.4) K/uL [place] # (Auto) (0.0-0.8) K/uL Eos # (Auto) (0.0-0.7) K/uL Baso # (Auto) (0.0-0.1) K/uL Nucleated RBC % /100WBC Nucleated RBCs # K/uL Sodium (136-148) mmol/L Potassium (3.5-5.1) mmol/L Chloride (98-107) mmol/L Carbon Dioxide (21.0-32.0) mmol/L BUN (7.0-18.0) mg/dL Creatinine (0.8-1.3) mg/dL Est Cr Clr Drug Dosing mL/min Estimated GFR (MDRD) ml/min Glucose (74-106) mg/dL POC Glucose 350 H 323 H (60-110) mg/dL Calcium (8.5-10.1) mg/dL Magnesium (1.8-2.4) mg/dL Total Bilirubin (0.2-1.0) mg/dL AST (15-37) IU/L ALT (14-63) IU/L Alkaline Phosphatase (46-116) U/L Total Protein (6.4-8.2) g/dL Albumin (3.4-5.0) g/dL Globulin (2.6-4.0) g/dL Albumin/Globulin Ratio (0.9-1.6) Vancomycin Trough 10.8 H (5.0-10.0) ug/mL 10/30/18 10/30/18 Range/Units 05:55 05:55 WBC 10.99 (4.0-11.0) K/uL RBC 3.95 L (4.50-5.90) M/uL Hgb 11.7 L (13.0-17.0) g/dL Hct 36.4 L (38.0-50.0) % MCV 92.2 (80.0-98.0) fL MCH 29.6 (27.0-32.0) pg MCHC 32.1 (31.0-37.0) g/dL RDW Std Deviation 49.5 (28.0-62.0) fl RDW Coeff of Carlos 14 (11.0-15.0) % Plt Count 228 (150-400) K/uL MPV 11.90 (7.40-12.00) fL Neut % (Auto) 88.5 H (48.0-80.0) % Lymph % (Auto) 7.9 L (16.0-40.0) % [place] % (Auto) 3.5 (0.0-15.0) % Eos % (Auto) 0.0 (0.0-7.0) % Baso % (Auto) 0.1 (0.0-1.5) % Neut # (Auto) 9.7 H (1.4-5.7) K/uL Lymph # (Auto) 0.9 (0.6-2.4) K/uL [place] # (Auto) 0.4 (0.0-0.8) K/uL Eos # (Auto) 0.0 (0.0-0.7) K/uL Baso # (Auto) 0.0 (0.0-0.1) K/uL Nucleated RBC % 0.0 /100WBC Nucleated RBCs # 0 K/uL Sodium 136 (136-148) mmol/L Potassium 4.8 (3.5-5.1) mmol/L Chloride 101 (98-107) mmol/L Carbon Dioxide 22.5 (21.0-32.0) mmol/L BUN 23 H (7.0-18.0) mg/dL Creatinine 1.1 (0.8-1.3) mg/dL Est Cr Clr Drug Dosing 108.25 mL/min Estimated GFR (MDRD) > 60.0 ml/min Glucose 300 H (74-106) mg/dL POC Glucose (60-110) mg/dL Calcium 8.2 L (8.5-10.1) mg/dL Magnesium 2.3 (1.8-2.4) mg/dL Total Bilirubin 0.3 (0.2-1.0) mg/dL AST 23 (15-37) IU/L ALT 35 (14-63) IU/L Alkaline Phosphatase 45 L (46-116) U/L Total Protein 7.1 (6.4-8.2) g/dL Albumin 2.8 L (3.4-5.0) g/dL Globulin 4.3 H (2.6-4.0) g/dL Albumin/Globulin Ratio 0.7 L (0.9-1.6) Vancomycin Trough (5.0-10.0) ug/mL Jake Results Last 24 Hours: Microbiology 10/28/18 02:55 Gram Stain - Final Sputum - Expectorated Sputum Culture - Final 10/28/18 13:54 Quick Strep Confirmation Culture - Final Throat NO GROUP A STREP ISOLATED REFERENCE RANGE: NEGATIVE Group A Streptococcus Rapid Screen - Final NEGATIVE STREP A SCREEN REFERENCE RANGE: NEGATIVE 10/28/18 14:43 Aerobic Blood Culture - Preliminary Blood - Venous - Lab Draw NO GROWTH AFTER 1 DAY Anaerobic Blood Culture - Final 10/28/18 14:35 Aerobic Blood Culture - Preliminary Blood - Venous NO GROWTH AFTER 1 DAY Anaerobic Blood Culture - Final Med Orders - Current: Current Medications Acetaminophen (Tylenol) 650 mg PO Q4H PRN PRN Reason: Pain (Mild 1-3)/fever Last Admin: 10/29/18 04:44 Dose: 650 mg Docusate Sodium (Colace) 100 mg PO BID PRN PRN Reason: Constipation Fludrocortisone Acetate (Florinef) 0.05 mg PO BIDMEALS [facility] Last Admin: 10/30/18 08:36 Dose: 0.05 mg Heparin Sodium (Porcine) (Heparin Sodium) 5,000 units SUBCUT Q8H [facility] Last Admin: 10/30/18 08:36 Dose: 5,000 units Hydrocortisone (Cortef) 10 mg PO Q12HR [facility] Last Admin: 10/30/18 08:35 Dose: 10 mg Sodium Chloride (Normal Saline) 1,000 mls @ 125 mls/hr IV ASDIRECTED [facility] Last Admin: 10/30/18 01:30 Dose: 125 mls/hr Piperacillin Sod/Tazobactam (Sod 4.5 gm/ Sodium Chloride) 100 mls @ 100 mls/hr IV Q8H [facility] Last Admin: 10/30/18 01:22 Dose: 100 mls/hr Vancomycin HCl 2 gm/ Sodium (Chloride) 500 mls @ 250 mls/hr IV Q12H [facility] Last Admin: 10/30/18 06:53 Dose: 250 mls/hr Insulin Aspart (Novolog) 0 unit SUBCUT QIDACANDBED [facility]; Protocol Last Admin: 10/30/18 07:30 Dose: Not Given Lorazepam (Ativan) 0.5 mg PO Q6HR PRN PRN Reason: Anxiety Magnesium Oxide (Magnesium Oxide) 400 mg PO DAILY [facility] Last Admin: 10/30/18 08:34 Dose: 400 mg Methylprednisolone Sodium Succinate (Solu-Medrol) 125 mg IVPUSH Q8H [facility] Last Admin: 10/30/18 01:23 Dose: 125 mg Ondansetron HCl (Zofran Odt) 4 mg PO Q6H PRN PRN Reason: nausea, able to take PO Oxycodone HCl (Oxycodone) 5 mg PO Q4H PRN PRN Reason: Pain (moderate 4-6) Pantoprazole Sodium (Protonix) 40 mg PO DAILY [facility] Last Admin: 10/30/18 08:34 Dose: 40 mg Sertraline HCl (Zoloft) 50 mg PO DAILY [facility] Last Admin: 10/30/18 08:34 Dose: 50 mg Temazepam (Restoril) 15 mg PO BEDTIME PRN PRN Reason: Sleep Last Admin: 10/29/18 22:03 Dose: 15 mg Vancomycin HCl (Pharmacy To Dose - Vancomycin) 1 dose .XX ASDIRECTED [facility] Discontinued Medications Albuterol/Ipratropium (Duoneb 3.0-0.5 Mg/3 Ml) 3 ml NEB ONETIME ONE Stop: 10/28/18 14:02 Last Admin: 10/28/18 14:31 Dose: 3 ml Hydrocortisone Sodium Succinate (Solu-Cortef) 100 mg IVPUSH ONETIME ONE Stop: 10/28/18 13:54 Last Admin: 10/28/18 14:09 Dose: 100 mg Sodium Chloride (Normal Saline) 1,000 mls @ 999 mls/hr IV BOLUS ONE Stop: 10/28/18 14:50 Last Admin: 10/28/18 14:09 Dose: 999 mls/hr Ceftriaxone Sodium/Dextrose 1 (gm/ Premix) 50 mls @ 100 mls/hr IV ONETIME ONE Stop: 10/28/18 15:32 Last Admin: 10/28/18 15:20 Dose: 100 mls/hr Sodium Chloride (Normal Saline) 1,000 mls @ 999 mls/hr IV STAT ONE Stop: 10/28/18 16:13 Last Admin: 10/28/18 15:20 Dose: 999 mls/hr Insulin Aspart (Novolog) 0 unit SUBCUT ACBREAKFASTANDBED [facility]; Protocol Methylprednisolone Sodium Succinate (Solu-Medrol) 125 mg IVPUSH ONETIME ONE Stop: 10/28/18 13:52 Last Admin: 10/28/18 13:56 Dose: Not Given Morphine Sulfate (Morphine) 2 mg IVPUSH Q2H PRN PRN Reason: Pain (severe 7-10) Stop: 10/29/18 16:10 - Exam Quality Assessment: Supplemental Oxygen General: Alert, Oriented, Cooperative, No Acute Distress HEENT: Pupils Equal, Pupils Reactive, EOMI. No: Mucous Membr. Moist/[place] (Dry) Neck: Supple, Trachea Midline Lungs: Clear to Auscultation, Normal Respiratory Effort Cardiovascular: Regular Rate, Regular Rhythm GI/Abdominal Exam: Normal Bowel Sounds, Soft, Non-Tender, No Distention Back Exam: Normal Inspection, Full Range of Motion Extremities: Normal Inspection, Normal Range of Motion, No Pedal Edema Skin: Warm, Dry, Intact Neurological: No New Focal Deficit Psy/Mental Status: Alert, Normal Affect, Normal Mood - Problem List & Annotations (1) Sepsis SNOMED Code(s): 20422000 Code(s): A41.9 - SEPSIS, UNSPECIFIED ORGANISM Status: Resolved Priority: High Current Visit: Yes Qualifiers: Sepsis type: sepsis due to unspecified organism Qualified Code(s): A41.9 - Sepsis, unspecified organism Annotation/Comment:: Cultures pending (2) Acute respiratory failure SNOMED Code(s): 97885826 Code(s): J96.00 - ACUTE RESPIRATORY FAILURE, UNSP W HYPOXIA OR HYPERCAPNIA Status: Acute Priority: High Current Visit: Yes Qualifiers: Respiratory failure complication: hypoxia Qualified Code(s): J96.01 - Acute respiratory failure with hypoxia (3) Community acquired pneumonia SNOMED Code(s): 268343543 Code(s): J18.9 - PNEUMONIA, UNSPECIFIED ORGANISM Status: Acute Priority: High Current Visit: Yes Qualifiers: Laterality: unspecified laterality Qualified Code(s): J18.9 - Pneumonia, unspecified organism (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 ADRENOCORTICAL INSUFFICIENCY Status: Chronic Priority: High Current Visit: Yes (5) Dehydration SNOMED Code(s): 80393468 Code(s): E86.0 - DEHYDRATION Status: Acute Priority: High Current Visit : Yes (6) History of [place]'s disease SNOMED Code(s): 442804583 Code(s): Z86.39 - PERSONAL HISTORY OF ENDO, NUTRITIONAL AND METABOLIC DISEASE Status: Chronic Priority: Medium Current Visit: Yes - Problem List Review Problem List Initiated/Reviewed/Updated: Yes - My Orders Last 24 Hours: My Active Orders 10/29/18 09:00 Hydrocortisone [Cortef] 10 mg PO Q12HR Magnesium Oxide 400 mg PO DAILY Pantoprazole [ProTONIX] 40 mg PO DAILY Sertraline [Zoloft] 50 mg PO DAILY 10/29/18 10:00 methylPREDNISolone Sod Succ [Solu-MEDROL] 125 mg IVPUSH Q8H - Plan Plan:: The patient is a 43-year-old gentleman who is doing much better currently. His oxygen demands have decreased. The patient is more awake and alert. The patient sepsis has resolved however he'll be kept on fluids and antibiotics currently. Patient's cultures are currently pending. The patient will be kept on stress dose of Solu-Medrol due to his adrenal insufficiency. The patient also be kept on IV fluids for now to ensure hydration. Patient also be kept on his appropriate ADA diet. He is on sliding scale insulin medium and this will be continued as patient is on steroids currently. The patient has been encouraged to ambulate. The patient may be appropriate for discharge in 1-2 days depending upon his symptomology. After discharge he is also to be active on his maintenance dose of steroids.
[2018-10-30] MEDS ORDERED: Insulin Aspart 100 Units/ML 3 ML Pen SUBCUT STA (21:38)
[2018-10-30] MEDS: Temazepam 15 MG Cap PO PRN (22:03)
[2018-10-31] MEDS: Heparin Sodium 5,000 Units/ML Vial SUBCUT SCH ×3 (01:16→17:16)
[2018-10-31] MEDS: methylPREDNISolone Sodium Succinate 125 MG/2 ML SDV IVPUSH SCH ×3 (01:16→18:41)
[2018-10-31] MEDS: Piperacillin/Tazobactam 4.5 GM in Sodium Chloride 0.9% 100 ML IV SCH ×3 (01:16→16:29)
[2018-10-31] MEDS: Sodium Chloride 0.9% 1,000 ML IV SCH ×2 (03:43→15:12)
[2018-10-31] MEDS: Vancomycin 2 GM in Sodium Chloride 0.9% 500 ML IV SCH ×2 (06:13→14:25)
--- NOTE | 2018-10-31 08:43 | PCM.DCSUM1 ---
Discharge Summary - Discharge Data Discharge Disposition: Home, Self-Care 01 Condition: Fair - Discharge Diagnosis/Problem(s) (1) Sepsis SNOMED Code(s): 63543208 ICD Code: A41.9 - SEPSIS, UNSPECIFIED ORGANISM Status: Resolved Priority : High Current Visit: Yes Problem Details: Cultures pending Qualifiers: Sepsis type: sepsis due to unspecified organism Qualified Code(s): A41.9 - Sepsis, unspecified organism (2) Acute respiratory failure SNOMED Code(s): 25449777 ICD Code: J96.00 - ACUTE RESPIRATORY FAILURE, UNSP W HYPOXIA OR HYPERCAPNIA Status: Acute Priority: High Current Visit: Yes Qualifiers: Respiratory failure complication: hypoxia Qualified Code(s): J96.01 - Acute respiratory failure with hypoxia (3) Community acquired pneumonia SNOMED Code(s): 663543229 ICD Code: J18.9 - PNEUMONIA, UNSPECIFIED ORGANISM Status: Acute Priority : High Current Visit: Yes Qualifiers: Laterality: unspecified laterality Qualified Code(s): J18.9 - Pneumonia, unspecified organism (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 ICD Code: E27.1 - PRIMARY ADRENOCORTICAL INSUFFICIENCY Status: Chronic Priority: High Current Visit: Yes (5) Dehydration SNOMED Code(s): 85358173 ICD Code: E86.0 - DEHYDRATION Status: Acute Priority: High Current Visit: Yes (6) History of [place]'s disease SNOMED Code(s): 733355849 ICD Code: Z86.39 - PERSONAL HISTORY OF ENDO, NUTRITIONAL AND METABOLIC DISEASE Status: Chronic Priority: Medium Current Visit: Yes - Discharge Plan Home Medications: Home Meds Pantoprazole [ProTONIX] 40 mg PO DAILY 09/29/14 [History] Sertraline [Zoloft] 50 mg PO DAILY 09/29/14 [History] Magnesium Oxide [Magnesium] 400 mg PO DAILY 11/02/14 [History] Melatonin/Pyridoxine HCl (B6) [Melatonin 3 mg Tablet] 3 mg PO BEDTIME PRN [History] LORazepam 0.5 mg PO Q6HR PRN 12/12/14 [History] Fludrocortisone [Florinef] 0.05 mg PO BIDMEALS #60 tablet 12/16/14 [Rx] Canagliflozin [Invokana] 300 mg PO DAILY 12/11/15 [History] Ondansetron [Ondansetron ODT] 4 mg PO Q6H PRN 12/11/15 [History] Hydrocortisone 10 mg PO QAM #45 tablet 12/12/15 [Rx] glipiZIDE [Glipizide ER] 2 mg PO DAILY 01/02/17 [History] Glimepiride [Amaryl] 2 mg PO DAILY 10/28/18 [History] Hydrocortisone 10 mg PO Q12HR 10/28/18 [History] Patient Handouts: Dehydration, Adult, [id number], Community-Acquired Pneumonia, Adult, [id number] Referrals: [facility] [Outside] Neil Florez MD [Physician] - 11/08/18 1:30 pm - Patient Data Vitals - Most Recent: Last Vital Signs Temp 35.9 C 10/31/18 07:54 Pulse 62 10/31/18 07:54 Resp 18 10/31/18 07:54 BP 88/49 L 10/31/18 07:54 Pulse Ox 93 L 10/31/18 07:54 Weight - Most Recent: 162.93 kg I&O - Last 24 hours: Intake & Output 10/30/18 10/31/18 10/31/18 22:59 06:59 14:59 Intake Total 2932 Output Total 1600 Balance 1332 Lab Results - Last 24 hrs: Laboratory Results - last 24 hr 10/30/18 10/30/18 10/30/18 Range/Units 11:31 16:04 20:48 WBC (4.0-11.0) K/uL RBC (4.50-5.90) M/uL Hgb (13.0-17.0) g/dL Hct (38.0-50.0) % MCV (80.0-98.0) fL MCH (27.0-32.0) pg MCHC (31.0-37.0) g/dL RDW Std Deviation (28.0-62.0) fl RDW Coeff of Carlos (11.0-15.0) % Plt Count (150-400) K/uL MPV (7.40-12.00) fL Neut % (Auto) (48.0-80.0) % Lymph % (Auto) (16.0-40.0) % [place] % (Auto) (0.0-15.0) % Eos % (Auto) (0.0-7.0) % Baso % (Auto) (0.0-1.5) % Neut # (Auto) (1.4-5.7) K/uL Lymph # (Auto) (0.6-2.4) K/uL [place] # (Auto) (0.0-0.8) K/uL Eos # (Auto) (0.0-0.7) K/uL Baso # (Auto) (0.0-0.1) K/uL Nucleated RBC % /100WBC Nucleated RBCs # K/uL POC Glucose 337 H 458 H 433 H (60-110) mg/dL 10/31/18 10/31/18 Range/Units 06:15 08:17 WBC 15.28 H (4.0-11.0) K/uL RBC 3.83 L (4.50-5.90) M/uL Hgb 11.2 L (13.0-17.0) g/dL Hct 35.5 L (38.0-50.0) % MCV 92.7 (80.0-98.0) fL MCH 29.2 (27.0-32.0) pg MCHC 31.5 (31.0-37.0) g/dL RDW Std Deviation 50.5 (28.0-62.0) fl RDW Coeff of Carlos 15 (11.0-15.0) % Plt Count 286 (150-400) K/uL MPV 11.30 (7.40-12.00) fL Neut % (Auto) 88.7 H (48.0-80.0) % Lymph % (Auto) 5.6 L (16.0-40.0) % King % (Auto) 5.5 (0.0-15.0) % Eos % (Auto) 0.1 (0.0-7.0) % Baso % (Auto) 0.1 (0.0-1.5) % Neut # (Auto) 13.6 H (1.4-5.7) K/uL Lymph # (Auto) 0.9 (0.6-2.4) K/uL [place] # (Auto) 0.8 (0.0-0.8) K/uL Eos # (Auto) 0.0 (0.0-0.7) K/uL Baso # (Auto) 0.0 (0.0-0.1) K/uL Nucleated RBC % 0.0 /100WBC Nucleated RBCs # 0 K/uL POC Glucose 308 H (60-110) mg/dL JUDE Results - Last 24 hrs: Microbiology 10/28/18 14:43 Aerobic Blood Culture - Preliminary Blood - Venous - Lab Draw NO GROWTH AFTER 2 DAYS Anaerobic Blood Culture - Final 10/28/18 14:35 Aerobic Blood Culture - Preliminary Blood - Venous NO GROWTH AFTER 2 DAYS Anaerobic Blood Culture - Final 10/28/18 02:55 Gram Stain - Final Sputum - Expectorated Sputum Culture - Final 10/28/18 13:54 Quick Strep Confirmation Culture - Final Throat NO GROUP A STREP ISOLATED REFERENCE RANGE: NEGATIVE Group A Streptococcus Rapid Screen - Final NEGATIVE STREP A SCREEN REFERENCE RANGE: NEGATIVE Med Orders - Current: Current Medications Acetaminophen (Tylenol) 650 mg PO Q4H PRN PRN Reason: Pain (Mild 1-3)/fever Last Admin: 10/29/18 04:44 Dose: 650 mg Docusate Sodium (Colace) 100 mg PO BID PRN PRN Reason: Constipation Fludrocortisone Acetate (Florinef) 0.05 mg PO BIDMEALS [facility] Last Admin: 10/30/18 17:20 Dose: 0.05 mg Heparin Sodium (Porcine) (Heparin Sodium) 5,000 units SUBCUT Q8H [facility] Last Admin: 10/31/18 01:16 Dose: 5,000 units Hydrocortisone (Cortef) 10 mg PO Q12HR [facility] Last Admin: 10/30/18 21:55 Dose: 10 mg Sodium Chloride (Normal Saline) 1,000 mls @ 125 mls/hr IV ASDIRECTED [facility] Last Admin: 10/31/18 03:43 Dose: 125 mls/hr Piperacillin Sod/Tazobactam (Sod 4.5 gm/ Sodium Chloride) 100 mls @ 100 mls/hr IV Q8H [facility] Last Admin: 10/31/18 01:16 Dose: 100 mls/hr Vancomycin HCl 2 gm/ Sodium (Chloride) 500 mls @ 250 mls/hr IV Q8H [facility] Last Admin: 10/31/18 06:13 Dose: 250 mls/hr Insulin Aspart (Novolog) 0 unit SUBCUT QIDACANDBED [facility]; Protocol Last Admin: 10/30/18 22:00 Dose: 15 units Lorazepam (Ativan) 0.5 mg PO Q6HR PRN PRN Reason: Anxiety Magnesium Oxide (Magnesium Oxide) 400 mg PO DAILY [facility] Last Admin: 10/30/18 08:34 Dose: 400 mg Methylprednisolone Sodium Succinate (Solu-Medrol) 125 mg IVPUSH Q8H [facility] Last Admin: 10/31/18 01:16 Dose: 125 mg Ondansetron HCl (Zofran Odt) 4 mg PO Q6H PRN PRN Reason: nausea, able to take PO Oxycodone HCl (Oxycodone) 5 mg PO Q4H PRN PRN Reason: Pain (moderate 4-6) Pantoprazole Sodium (Protonix) 40 mg PO DAILY [facility] Last Admin: 10/30/18 08:34 Dose: 40 mg Sertraline HCl (Zoloft) 50 mg PO DAILY [facility] Last Admin: 10/30/18 08:34 Dose: 50 mg Temazepam (Restoril) 15 mg PO BEDTIME PRN PRN Reason: Sleep Last Admin: 10/30/18 22:03 Dose: 15 mg Vancomycin HCl (Pharmacy To Dose - Vancomycin) 1 dose .XX ASDIRECTED [facility] Discontinued Medications Albuterol/Ipratropium (Duoneb 3.0-0.5 Mg/3 Ml) 3 ml NEB ONETIME ONE Stop: 10/28/18 14:02 Last Admin: 10/28/18 14:31 Dose: 3 ml Hydrocortisone Sodium Succinate (Solu-Cortef) 100 mg IVPUSH ONETIME ONE Stop: 10/28/18 13:54 Last Admin: 10/28/18 14:09 Dose: 100 mg Sodium Chloride (Normal Saline) 1,000 mls @ 999 mls/hr IV BOLUS ONE Stop: 10/28/18 14:50 Last Admin: 10/28/18 14:09 Dose: 999 mls/hr Ceftriaxone Sodium/Dextrose 1 (gm/ Premix) 50 mls @ 100 mls/hr IV ONETIME ONE Stop: 10/28/18 15:32 Last Admin: 10/28/18 15:20 Dose: 100 mls/hr Sodium Chloride (Normal Saline) 1,000 mls @ 999 mls/hr IV STAT ONE Stop: 10/28/18 16:13 Last Admin: 10/28/18 15:20 Dose: 999 mls/hr Vancomycin HCl 2 gm/ Sodium (Chloride) 500 mls @ 250 mls/hr IV Q12H [facility] Last Admin: 10/30/18 06:53 Dose: 250 mls/hr Insulin Aspart (Novolog) 0 unit SUBCUT ACBREAKFASTANDBED [facility]; Protocol Insulin Aspart (Novolog) 8 unit SUBCUT NOW STA Stop: 10/30/18 21:39 Last Admin: 10/30/18 21:59 Dose: 8 units Methylprednisolone Sodium Succinate (Solu-Medrol) 125 mg IVPUSH ONETIME ONE Stop: 10/28/18 13:52 Last Admin: 10/28/18 13:56 Dose: Not Given Morphine Sulfate (Morphine) 2 mg IVPUSH Q2H PRN PRN Reason: Pain (severe 7-10) Stop: 10/29/18 16:10
[2018-10-31 08:45] LABS: CHLORIDE,CL 105 mmol/L (98-107); SODIUM,NA 139 mmol/L (136-148)
[2018-10-31] MEDS: Magnesium Oxide 400 MG Tab PO SCH (08:49)
[2018-10-31] MEDS: Pantoprazole 40 MG Tab.CR PO SCH (08:49)
[2018-10-31] MEDS: Sertraline 50 MG Tab PO SCH (08:50)
[2018-10-31] MEDS: Fludrocortisone 0.1 MG Tab PO SCH ×2 (08:50→16:28)
[2018-10-31] MEDS: Hydrocortisone 20 MG Tab PO SCH ×2 (08:51→21:40)
[2018-10-31] MEDS: Insulin Aspart 100 Units/ML 3 ML Pen SUBCUT SCH ×4 (08:52→21:41)
--- NOTE | 2018-10-31 09:35 | PCM.PN ---
- General Info Date of Service: 10/31/18 Admission Dx/Problem (Free Text): Admission Diagnosis/Problem Admission Diagnosis/Problem Pneumonia, Robson's disease, sepsis Subjective Update: The patient is a 43-year-old gentleman who had been admitted to inpatient hospitalization on October 28, 2018. The patient was admitted with fever and chills along with cough and productive sputum. Cultures are currently pending. The patient was in anticipation of being able to go home. Overall the patient feels much better today. The patient is on stress dose of steroids. This was done secondary to the patient's history of Hamilton's disease. The patient has been tolerating his diet. He has denied any pain. Patient says that his breathing is better. Functional Status: Reports: Pain Controlled - Review of Systems General: Reports: No Symptoms HEENT: Reports: No Symptoms Pulmonary: Reports: Shortness of Breath Cardiovascular: Reports: No Symptoms Gastrointestinal: Reports: No Symptoms Genitourinary: Reports: No Symptoms Musculoskeletal: Reports: No Symptoms Skin: Reports: No Symptoms Neurological: Reports: No Symptoms Psychiatric: Reports: No Symptoms - Patient Data Vitals - Most Recent: Last Vital Signs Temp 35.9 C 10/31/18 07:54 Pulse 62 10/31/18 07:54 Resp 18 10/31/18 07:54 BP 88/49 L 10/31/18 07:54 Pulse Ox 93 L 10/31/18 07:54 Weight - Most Recent: 162.93 kg I&O - Last 24 Hours: Intake & Output 10/30/18 10/31/18 10/31/18 22:59 06:59 14:59 Intake Total 2932 Output Total 1600 Balance 1332 Lab Results Last 24 Hours: Laboratory Results - last 24 hr 10/30/18 10/30/18 10/30/18 Range/Units 11:31 16:04 20:48 WBC (4.0-11.0) K/uL RBC (4.50-5.90) M/uL Hgb (13.0-17.0) g/dL Hct (38.0-50.0) % MCV (80.0-98.0) fL MCH (27.0-32.0) pg MCHC (31.0-37.0) g/dL RDW Std Deviation (28.0-62.0) fl RDW Coeff of Carlos (11.0-15.0) % Plt Count (150-400) K/uL MPV (7.40-12.00) fL Neut % (Auto) (48.0-80.0) % Lymph % (Auto) (16.0-40.0) % [place] % (Auto) (0.0-15.0) % Eos % (Auto) (0.0-7.0) % Baso % (Auto) (0.0-1.5) % Neut # (Auto) (1.4-5.7) K/uL Lymph # (Auto) (0.6-2.4) K/uL [place] # (Auto) (0.0-0.8) K/uL Eos # (Auto) (0.0-0.7) K/uL Baso # (Auto) (0.0-0.1) K/uL Nucleated RBC % /100WBC Nucleated RBCs # K/uL Sodium (136-148) mmol/L Potassium (3.5-5.1) mmol/L Chloride (98-107) mmol/L Carbon Dioxide (21.0-32.0) mmol/L BUN (7.0-18.0) mg/dL Creatinine (0.8-1.3) mg/dL Est Cr Clr Drug Dosing mL/min Estimated GFR (MDRD) ml/min Glucose (74-106) mg/dL POC Glucose 337 H 458 H 433 H (60-110) mg/dL Calcium (8.5-10.1) mg/dL 10/31/18 10/31/18 10/31/18 Range/Units 06:15 08:17 08:17 WBC 15.28 H (4.0-11.0) K/uL RBC 3.83 L (4.50-5.90) M/uL Hgb 11.2 L (13.0-17.0) g/dL Hct 35.5 L (38.0-50.0) % MCV 92.7 (80.0-98.0) fL MCH 29.2 (27.0-32.0) pg MCHC 31.5 (31.0-37.0) g/dL RDW Std Deviation 50.5 (28.0-62.0) fl RDW Coeff of Carlos 15 (11.0-15.0) % Plt Count 286 (150-400) K/uL MPV 11.30 (7.40-12.00) fL Neut % (Auto) 88.7 H (48.0-80.0) % Lymph % (Auto) 5.6 L (16.0-40.0) % [place] % (Auto) 5.5 (0.0-15.0) % Eos % (Auto) 0.1 (0.0-7.0) % Baso % (Auto) 0.1 (0.0-1.5) % Neut # (Auto) 13.6 H (1.4-5.7) K/uL Lymph # (Auto) 0.9 (0.6-2.4) K/uL [place] # (Auto) 0.8 (0.0-0.8) K/uL Eos # (Auto) 0.0 (0.0-0.7) K/uL Baso # (Auto) 0.0 (0.0-0.1) K/uL Nucleated RBC % 0.0 /100WBC Nucleated RBCs # 0 K/uL Sodium 139 (136-148) mmol/L Potassium 4.7 (3.5-5.1) mmol/L Chloride 105 (98-107) mmol/L Carbon Dioxide 26.1 (21.0-32.0) mmol/L BUN 26 H (7.0-18.0) mg/dL Creatinine 1.2 (0.8-1.3) mg/dL Est Cr Clr Drug Dosing 99.23 mL/min Estimated GFR (MDRD) > 60.0 ml/min Glucose 317 H (74-106) mg/dL POC Glucose 308 H (60-110) mg/dL Calcium 7.8 L (8.5-10.1) mg/dL Jake Results Last 24 Hours: Microbiology 10/28/18 14:43 Aerobic Blood Culture - Preliminary Blood - Venous - Lab Draw NO GROWTH AFTER 2 DAYS Anaerobic Blood Culture - Final 10/28/18 14:35 Aerobic Blood Culture - Preliminary Blood - Venous NO GROWTH AFTER 2 DAYS Anaerobic Blood Culture - Final 10/28/18 02:55 Gram Stain - Final Sputum - Expectorated Sputum Culture - Final 10/28/18 13:54 Quick Strep Confirmation Culture - Final Throat NO GROUP A STREP ISOLATED REFERENCE RANGE: NEGATIVE Group A Streptococcus Rapid Screen - Final NEGATIVE STREP A SCREEN REFERENCE RANGE: NEGATIVE Med Orders - Current: Current Medications Acetaminophen (Tylenol) 650 mg PO Q4H PRN PRN Reason: Pain (Mild 1-3)/fever Last Admin: 10/29/18 04:44 Dose: 650 mg Docusate Sodium (Colace) 100 mg PO BID PRN PRN Reason: Constipation Fludrocortisone Acetate (Florinef) 0.05 mg PO BIDMEALS [facility] Last Admin: 10/31/18 08:50 Dose: 0.05 mg Heparin Sodium (Porcine) (Heparin Sodium) 5,000 units SUBCUT Q8H [facility] Last Admin: 10/31/18 08:56 Dose: 5,000 units Hydrocortisone (Cortef) 10 mg PO Q12HR [facility] Last Admin: 10/31/18 08:51 Dose: 10 mg Sodium Chloride (Normal Saline) 1,000 mls @ 125 mls/hr IV ASDIRECTED [facility] Last Admin: 10/31/18 03:43 Dose: 125 mls/hr Piperacillin Sod/Tazobactam (Sod 4.5 gm/ Sodium Chloride) 100 mls @ 100 mls/hr IV Q8H [facility] Last Admin: 10/31/18 01:16 Dose: 100 mls/hr Vancomycin HCl 2 gm/ Sodium (Chloride) 500 mls @ 250 mls/hr IV Q8H [facility] Last Admin: 10/31/18 06:13 Dose: 250 mls/hr Insulin Aspart (Novolog) 0 unit SUBCUT QIDACANDBED [facility]; Protocol Last Admin: 10/31/18 08:52 Dose: 12 units Lorazepam (Ativan) 0.5 mg PO Q6HR PRN PRN Reason: Anxiety Magnesium Oxide (Magnesium Oxide) 400 mg PO DAILY [facility] Last Admin: 10/31/18 08:49 Dose: 400 mg Methylprednisolone Sodium Succinate (Solu-Medrol) 125 mg IVPUSH Q8H [facility] Last Admin: 10/31/18 01:16 Dose: 125 mg Ondansetron HCl (Zofran Odt) 4 mg PO Q6H PRN PRN Reason: nausea, able to take PO Oxycodone HCl (Oxycodone) 5 mg PO Q4H PRN PRN Reason: Pain (moderate 4-6) Pantoprazole Sodium (Protonix) 40 mg PO DAILY [facility] Last Admin: 10/31/18 08:49 Dose: 40 mg Sertraline HCl (Zoloft) 50 mg PO DAILY [facility] Last Admin: 10/31/18 08:50 Dose: 50 mg Temazepam (Restoril) 15 mg PO BEDTIME PRN PRN Reason: Sleep Last Admin: 10/30/18 22:03 Dose: 15 mg Vancomycin HCl (Pharmacy To Dose - Vancomycin) 1 dose .XX ASDIRECTED [facility] Discontinued Medications Albuterol/Ipratropium (Duoneb 3.0-0.5 Mg/3 Ml) 3 ml NEB ONETIME ONE Stop: 10/28/18 14:02 Last Admin: 10/28/18 14:31 Dose: 3 ml Hydrocortisone Sodium Succinate (Solu-Cortef) 100 mg IVPUSH ONETIME ONE Stop: 10/28/18 13:54 Last Admin: 10/28/18 14:09 Dose: 100 mg Sodium Chloride (Normal Saline) 1,000 mls @ 999 mls/hr IV BOLUS ONE Stop: 10/28/18 14:50 Last Admin: 10/28/18 14:09 Dose: 999 mls/hr Ceftriaxone Sodium/Dextrose 1 (gm/ Premix) 50 mls @ 100 mls/hr IV ONETIME ONE Stop: 10/28/18 15:32 Last Admin: 10/28/18 15:20 Dose: 100 mls/hr Sodium Chloride (Normal Saline) 1,000 mls @ 999 mls/hr IV STAT ONE Stop: 10/28/18 16:13 Last Admin: 10/28/18 15:20 Dose: 999 mls/hr Vancomycin HCl 2 gm/ Sodium (Chloride) 500 mls @ 250 mls/hr IV Q12H [facility] Last Admin: 10/30/18 06:53 Dose: 250 mls/hr Insulin Aspart (Novolog) 0 unit SUBCUT ACBREAKFASTANDBED [facility]; Protocol Insulin Aspart (Novolog) 8 unit SUBCUT NOW STA Stop: 10/30/18 21:39 Last Admin: 10/30/18 21:59 Dose: 8 units Methylprednisolone Sodium Succinate (Solu-Medrol) 125 mg IVPUSH ONETIME ONE Stop: 10/28/18 13:52 Last Admin: 10/28/18 13:56 Dose: Not Given Morphine Sulfate (Morphine) 2 mg IVPUSH Q2H PRN PRN Reason: Pain (severe 7-10) Stop: 10/29/18 16:10 - Exam Quality Assessment: Supplemental Oxygen General: Alert, Oriented, Cooperative, No Acute Distress HEENT: Pupils Equal, Pupils Reactive, EOMI, Mucous Membr. Moist/[place] Neck: Supple, Trachea Midline Lungs: Decreased Breath Sounds, Rhonchi Cardiovascular: Regular Rate, Regular Rhythm GI/Abdominal Exam: Normal Bowel Sounds, Soft, No Distention, Other (Obese). No : Guarding, Rigid Back Exam: Normal Inspection Extremities: Normal Inspection, No Pedal Edema Skin: Warm, Dry, Intact Neurological: No New Focal Deficit Psy/Mental Status: Alert, Normal Affect, Normal Mood - Problem List & Annotations (1) Sepsis SNOMED Code(s): 85861009 Code(s): A41.9 - SEPSIS, UNSPECIFIED ORGANISM Status: Resolved Priority: High Current Visit: Yes Qualifiers: Sepsis type: sepsis due to unspecified organism Qualified Code(s): A41.9 - Sepsis, unspecified organism Annotation/Comment:: Cultures pending (2) Acute respiratory failure SNOMED Code(s): 61093489 Code(s): J96.00 - ACUTE RESPIRATORY FAILURE, UNSP W HYPOXIA OR HYPERCAPNIA Status: Acute Priority: High Current Visit: Yes Qualifiers: Respiratory failure complication: hypoxia Qualified Code(s): J96.01 - Acute respiratory failure with hypoxia Annotation/Comment:: Improved, still on 5 L of oxygen (3) Community acquired pneumonia SNOMED Code(s): 330992119 Code(s): J18.9 - PNEUMONIA, UNSPECIFIED ORGANISM Status: Acute Priority: High Current Visit: Yes Qualifiers: Laterality: unspecified laterality Qualified Code(s): J18.9 - Pneumonia, unspecified organism Annotation/Comment:: Cultures pending. (4) Robson's disease SNOMED Code(s): 632394287 Code(s): E27.1 - PRIMARY ADRENOCORTICAL INSUFFICIENCY Status: Chronic Priority: High Current Visit: Yes (5) Dehydration SNOMED Code(s): 91569236 Code(s): E86.0 - DEHYDRATION Status: Acute Priority: High Current Visit : Yes (6) History of Hamilton's disease SNOMED Code(s): 611334749 Code(s): Z86.39 - PERSONAL HISTORY OF ENDO, NUTRITIONAL AND METABOLIC DISEASE Status: Chronic Priority: Medium Current Visit: Yes - Problem List Review Problem List Initiated/Reviewed/Updated: Yes - My Orders Last 24 Hours: My Active Orders 10/30/18 14:00 Vancomycin 2 gm Sodium Chloride 0.9% [Normal Saline] 500 ml IV Q8H - Plan Plan:: The patient is a 43-year-old gentleman who is doing much better today. He was anticipating going home today however, his oxygen demands are still too high to go home. He is currently on 5 L of oxygen and this will be continued to help keep his saturations above 92%. The patient has been encouraged to ambulate. He' ll still be kept on his current dose of Solu-Medrol. The patient is also on Zosyn and vancomycin in both these will be continued and de- escalated as cultures return. The patient has been encouraged to ambulate. The patient will be kept on heparin for DVT prophylaxis. I've ordered repeat laboratory studies for the patient as well as a chest x-ray for tomorrow. His anticipated the patient should be appropriate for discharge in 1-2 days or when his oxygen demands have improved. He is currently exhibiting leukocytosis and this is likely secondary to the steroids.
[2018-10-31] MEDS ORDERED: Vancomycin 1.5 GM in Sodium Chloride 0.9% 500 ML IV SCH (15:00)
[2018-10-31] MEDS: Temazepam 15 MG Cap PO PRN (21:40)
[2018-10-31] MEDS: Vancomycin 1.5 GM in Sodium Chloride 0.9% 500 ML IV SCH (23:55)
[2018-11-01] MEDS: Heparin Sodium 5,000 Units/ML Vial SUBCUT SCH ×2 (01:41→08:55)
[2018-11-01] MEDS: methylPREDNISolone Sodium Succinate 125 MG/2 ML SDV IVPUSH SCH (01:42)
[2018-11-01] MEDS: Piperacillin/Tazobactam 4.5 GM in Sodium Chloride 0.9% 100 ML IV SCH ×2 (02:20→08:49)
[2018-11-01] MEDS: Sodium Chloride 0.9% 1,000 ML IV SCH (02:21)
[2018-11-01] MEDS: Vancomycin 1.5 GM in Sodium Chloride 0.9% 500 ML IV SCH (06:30)
[2018-11-01 06:51] LABS: CHLORIDE,CL 104 mmol/L (98-107); SODIUM,NA 138 mmol/L (136-148)
[2018-11-01] MEDS: Sertraline 50 MG Tab PO SCH (08:51)
[2018-11-01] MEDS: Fludrocortisone 0.1 MG Tab PO SCH (08:53)
[2018-11-01] MEDS: Magnesium Oxide 400 MG Tab PO SCH (08:54)
[2018-11-01] MEDS: Pantoprazole 40 MG Tab.CR PO SCH (08:54)
[2018-11-01] MEDS: Hydrocortisone 20 MG Tab PO SCH (08:56)
[2018-11-01] MEDS: Insulin Aspart 100 Units/ML 3 ML Pen SUBCUT SCH (09:09)
[2018-11-01 09:56] VITALS: BP 133/67
--- NOTE | 2018-11-01 10:34 | PCM.DCSUM1 ---
Discharge Summary - Hospital Course Free Text/Narrative:: Admission date: 10/28/2018 Discharge date: 11/01/2018 Admission diagnosis: #1. Community acquired pneumonia #2. Acute hypoxic respiratory failure #3. History of Robson's disease #4. T2DM #5. Depression #6. Obesity Discharge diagnosis: #1. Community acquired pneumonia #2. Acute hypoxic respiratory failure - resolved #3. History of Robson's disease #4. T2DM #5. Depression #6. Obesity Hospital course: 43M with the history mentioned above presented for cough, shortness of breath found to have a mild bibasilar infiltrate admitted for further management. He was placed on Vancomycin, Zosyn and respiratory support including oxygen, duonebs, solu-medrol on top of his chronic corticosteroid need. When I took over his care on 11/01/2018, patient stated that he felt much better. His cough, shortness of breath had resolved. He was saturating 98% on room air. I advised him that he will need to continue his course of antibiotics , which I have stepped down to Augmentin. He is to follow up with his PCP. I think he likely has MAYUR, which should be investigated further once this acute condition resolves. He was encouraged to talk to his PCP about a sleep study. - Discharge Data Discharge Date: 11/01/18 Discharge Disposition: Home, Self-Care 01 Condition: Fair - Patient Instructions Diet: Diabetic Diet Activity: As Tolerated Driving: May Drive Today Notify Provider of: Fever, Increased Pain, Swelling and Redness, Nausea and/or Vomiting - Discharge Plan Prescriptions/Med Rec: Amoxicillin/Potassium Clav [Augmentin 875-125 Tablet] 1 each PO Q12H 6 Days #12 tablet Home Medications: Home Meds Pantoprazole [ProTONIX] 40 mg PO DAILY 09/29/14 [History] Sertraline [Zoloft] 50 mg PO DAILY 09/29/14 [History] Magnesium Oxide [Magnesium] 400 mg PO DAILY 11/02/14 [History] Melatonin/Pyridoxine HCl (B6) [Melatonin 3 mg Tablet] 3 mg PO BEDTIME PRN [History] LORazepam 0.5 mg PO Q6HR PRN 12/12/14 [History] Fludrocortisone [Florinef] 0.05 mg PO BIDMEALS #60 tablet 12/16/14 [Rx] Canagliflozin [Invokana] 300 mg PO DAILY 12/11/15 [History] Ondansetron [Ondansetron ODT] 4 mg PO Q6H PRN 12/11/15 [History] Hydrocortisone 10 mg PO QAM #45 tablet 12/12/15 [Rx] glipiZIDE [Glipizide ER] 2 mg PO DAILY 01/02/17 [History] Glimepiride [Amaryl] 2 mg PO DAILY 10/28/18 [History] Hydrocortisone 10 mg PO Q12HR 10/28/18 [History] Amoxicillin/Potassium Clav [Augmentin 875-125 Tablet] 1 each PO Q12H 6 Days #12 tablet 11/01/18 [Rx] Patient Handouts: Amoxicillin; Clavulanic Acid tablets, Dehydration, Adult, [id number], Community-Acquired Pneumonia, Adult, [id number] Referrals: [facility] [Outside] Neil Florez MD [Physician] - 11/03/18 2:45 pm - Discharge Summary/Plan Comment DC Time >30 min.: No - Patient Data Vitals - Most Recent: Last Vital Signs Temp 36.2 C 11/01/18 08:00 Pulse 50 L 11/01/18 08:00 Resp 18 11/01/18 08:00 BP 133/67 11/01/18 08:00 Pulse Ox 91 L 11/01/18 08:00 Weight - Most Recent: 162.93 kg I&O - Last 24 hours: Intake & Output 10/31/18 11/01/18 11/01/18 22:59 06:59 14:59 Intake Total 2300 2645 100 Output Total 1500 1125 Balance 800 1520 100 Lab Results - Last 24 hrs: Laboratory Results - last 24 hr 10/31/18 10/31/18 10/31/18 Range/Units 11:43 12:40 16:05 WBC (4.0-11.0) K/uL RBC (4.50-5.90) M/uL Hgb (13.0-17.0) g/dL Hct (38.0-50.0) % MCV (80.0-98.0) fL MCH (27.0-32.0) pg MCHC (31.0-37.0) g/dL RDW Std Deviation (28.0-62.0) fl RDW Coeff of Carlos (11.0-15.0) % Plt Count (150-400) K/uL MPV (7.40-12.00) fL Neut % (Auto) (48.0-80.0) % Lymph % (Auto) (16.0-40.0) % [place] % (Auto) (0.0-15.0) % Eos % (Auto) (0.0-7.0) % Baso % (Auto) (0.0-1.5) % Neut # (Auto) (1.4-5.7) K/uL Lymph # (Auto) (0.6-2.4) K/uL [place] # (Auto) (0.0-0.8) K/uL Eos # (Auto) (0.0-0.7) K/uL Baso # (Auto) (0.0-0.1) K/uL Nucleated RBC % /100WBC Nucleated RBCs # K/uL Sodium (136-148) mmol/L Potassium (3.5-5.1) mmol/L Chloride (98-107) mmol/L Carbon Dioxide (21.0-32.0) mmol/L BUN (7.0-18.0) mg/dL Creatinine (0.8-1.3) mg/dL Est Cr Clr Drug Dosing mL/min Estimated GFR (MDRD) ml/min Glucose (74-106) mg/dL POC Glucose 347 H 368 H (60-110) mg/dL Calcium (8.5-10.1) mg/dL Vancomycin Trough 21.1 H (5.0-10.0) ug/mL 10/31/18 11/01/18 11/01/18 Range/Units 20:48 06:14 06:14 WBC 15.37 H (4.0-11.0) K/uL RBC 3.99 L (4.50-5.90) M/uL Hgb 11.6 L (13.0-17.0) g/dL Hct 36.4 L (38.0-50.0) % MCV 91.2 (80.0-98.0) fL MCH 29.1 (27.0-32.0) pg MCHC 31.9 (31.0-37.0) g/dL RDW Std Deviation 49.6 (28.0-62.0) fl RDW Coeff of Carlos 15 (11.0-15.0) % Plt Count 290 (150-400) K/uL MPV 11.30 (7.40-12.00) fL Neut % (Auto) 90.1 H (48.0-80.0) % Lymph % (Auto) 6.3 L (16.0-40.0) % [place] % (Auto) 3.4 (0.0-15.0) % Eos % (Auto) 0.1 (0.0-7.0) % Baso % (Auto) 0.1 (0.0-1.5) % Neut # (Auto) 13.9 H (1.4-5.7) K/uL Lymph # (Auto) 1.0 (0.6-2.4) K/uL [place] # (Auto) 0.5 (0.0-0.8) K/uL Eos # (Auto) 0.0 (0.0-0.7) K/uL Baso # (Auto) 0.0 (0.0-0.1) K/uL Nucleated RBC % 0.0 /100WBC Nucleated RBCs # 0 K/uL Sodium 138 (136-148) mmol/L Potassium 4.4 (3.5-5.1) mmol/L Chloride 104 (98-107) mmol/L Carbon Dioxide 24.8 (21.0-32.0) mmol/L BUN 27 H (7.0-18.0) mg/dL Creatinine 1.0 (0.8-1.3) mg/dL Est Cr Clr Drug Dosing 119.08 mL/min Estimated GFR (MDRD) > 60.0 ml/min Glucose 329 H (74-106) mg/dL POC Glucose 390 H (60-110) mg/dL Calcium 7.8 L (8.5-10.1) mg/dL Vancomycin Trough (5.0-10.0) ug/mL 11/01/18 Range/Units 06:15 WBC (4.0-11.0) K/uL RBC (4.50-5.90) M/uL Hgb (13.0-17.0) g/dL Hct (38.0-50.0) % MCV (80.0-98.0) fL MCH (27.0-32.0) pg MCHC (31.0-37.0) g/dL RDW Std Deviation (28.0-62.0) fl RDW Coeff of Carlos (11.0-15.0) % Plt Count (150-400) K/uL MPV (7.40-12.00) fL Neut % (Auto) (48.0-80.0) % Lymph % (Auto) (16.0-40.0) % [place] % (Auto) (0.0-15.0) % Eos % (Auto) (0.0-7.0) % Baso % (Auto) (0.0-1.5) % Neut # (Auto) (1.4-5.7) K/uL Lymph # (Auto) (0.6-2.4) K/uL [place] # (Auto) (0.0-0.8) K/uL Eos # (Auto) (0.0-0.7) K/uL Baso # (Auto) (0.0-0.1) K/uL Nucleated RBC % /100WBC Nucleated RBCs # K/uL Sodium (136-148) mmol/L Potassium (3.5-5.1) mmol/L Chloride (98-107) mmol/L Carbon Dioxide (21.0-32.0) mmol/L BUN (7.0-18.0) mg/dL Creatinine (0.8-1.3) mg/dL Est Cr Clr Drug Dosing mL/min Estimated GFR (MDRD) ml/min Glucose (74-106) mg/dL POC Glucose 309 H (60-110) mg/dL Calcium (8.5-10.1) mg/dL Vancomycin Trough (5.0-10.0) ug/mL JUDE Results - Last 24 hrs: Microbiology 10/28/18 14:43 Aerobic Blood Culture - Preliminary Blood - Venous - Lab Draw NO GROWTH AFTER 3 DAYS Anaerobic Blood Culture - Final 10/28/18 14:35 Aerobic Blood Culture - Preliminary Blood - Venous NO GROWTH AFTER 3 DAYS Anaerobic Blood Culture - Final Med Orders - Current: Current Medications Acetaminophen (Tylenol) 650 mg PO Q4H PRN PRN Reason: Pain (Mild 1-3)/fever Last Admin: 10/29/18 04:44 Dose: 650 mg Docusate Sodium (Colace) 100 mg PO BID PRN PRN Reason: Constipation Fludrocortisone Acetate (Florinef) 0.05 mg PO BIDMEALS [facility] Last Admin: 11/01/18 08:53 Dose: 0.05 mg Heparin Sodium (Porcine) (Heparin Sodium) 5,000 units SUBCUT Q8H [facility] Last Admin: 11/01/18 08:55 Dose: 5,000 units Hydrocortisone (Cortef) 10 mg PO Q12HR [facility] Last Admin: 11/01/18 08:56 Dose: 10 mg Sodium Chloride (Normal Saline) 1,000 mls @ 125 mls/hr IV ASDIRECTED [facility] Last Admin: 11/01/18 02:21 Dose: 125 mls/hr Piperacillin Sod/Tazobactam (Sod 4.5 gm/ Sodium Chloride) 100 mls @ 100 mls/hr IV Q8H [facility] Last Admin: 11/01/18 08:49 Dose: 100 mls/hr Vancomycin HCl 1.5 gm/ Sodium (Chloride) 500 mls @ 250 mls/hr IV Q8H [facility] Last Admin: 11/01/18 06:30 Dose: 250 mls/hr Insulin Aspart (Novolog) 0 unit SUBCUT QIDACANDBED [facility]; Protocol Last Admin: 11/01/18 09:09 Dose: 12 units Lorazepam (Ativan) 0.5 mg PO Q6HR PRN PRN Reason: Anxiety Magnesium Oxide (Magnesium Oxide) 400 mg PO DAILY [facility] Last Admin: 11/01/18 08:54 Dose: 400 mg Ondansetron HCl (Zofran Odt) 4 mg PO Q6H PRN PRN Reason: nausea, able to take PO Oxycodone HCl (Oxycodone) 5 mg PO Q4H PRN PRN Reason: Pain (moderate 4-6) Pantoprazole Sodium (Protonix) 40 mg PO DAILY [facility] Last Admin: 11/01/18 08:54 Dose: 40 mg Sertraline HCl (Zoloft) 50 mg PO DAILY [facility] Last Admin: 11/01/18 08:51 Dose: 50 mg Temazepam (Restoril) 15 mg PO BEDTIME PRN PRN Reason: Sleep Last Admin: 10/31/18 21:40 Dose: 15 mg Vancomycin HCl (Pharmacy To Dose - Vancomycin) 1 dose .XX ASDIRECTED [facility] Discontinued Medications Albuterol/Ipratropium (Duoneb 3.0-0.5 Mg/3 Ml) 3 ml NEB ONETIME ONE Stop: 10/28/18 14:02 Last Admin: 10/28/18 14:31 Dose: 3 ml Hydrocortisone Sodium Succinate (Solu-Cortef) 100 mg IVPUSH ONETIME ONE Stop: 10/28/18 13:54 Last Admin: 10/28/18 14:09 Dose: 100 mg Sodium Chloride (Normal Saline) 1,000 mls @ 999 mls/hr IV BOLUS ONE Stop: 10/28/18 14:50 Last Admin: 10/28/18 14:09 Dose: 999 mls/hr Ceftriaxone Sodium/Dextrose 1 (gm/ Premix) 50 mls @ 100 mls/hr IV ONETIME ONE Stop: 10/28/18 15:32 Last Admin: 10/28/18 15:20 Dose: 100 mls/hr Sodium Chloride (Normal Saline) 1,000 mls @ 999 mls/hr IV STAT ONE Stop: 10/28/18 16:13 Last Admin: 10/28/18 15:20 Dose: 999 mls/hr Vancomycin HCl 2 gm/ Sodium (Chloride) 500 mls @ 250 mls/hr IV Q12H [facility] Last Admin: 10/30/18 06:53 Dose: 250 mls/hr Vancomycin HCl 2 gm/ Sodium (Chloride) 500 mls @ 250 mls/hr IV Q8H [facility] Last Admin: 10/31/18 14:25 Dose: 250 mls/hr Vancomycin HCl 1.5 gm/ Sodium (Chloride) 500 mls @ 250 mls/hr IV Q8H [facility] Insulin Aspart (Novolog) 0 unit SUBCUT ACBREAKFASTANDBED [facility]; Protocol Insulin Aspart (Novolog) 8 unit SUBCUT NOW STA Stop: 10/30/18 21:39 Last Admin: 10/30/18 21:59 Dose: 8 units Methylprednisolone Sodium Succinate (Solu-Medrol) 125 mg IVPUSH ONETIME ONE Stop: 10/28/18 13:52 Last Admin: 10/28/18 13:56 Dose: Not Given Methylprednisolone Sodium Succinate (Solu-Medrol) 125 mg IVPUSH Q8H [facility] Last Admin: 11/01/18 01:42 Dose: 125 mg Morphine Sulfate (Morphine) 2 mg IVPUSH Q2H PRN PRN Reason: Pain (severe 7-10) Stop: 10/29/18 16:10
== END 2018-11-01 11:38 | disposition home or self-care (01) | DRG 720 ==
LOC: MW.ED 13:24 → MW.MS 17:01
PROVIDERS: ADMIT Internal Medicine; ATTEND Internal Medicine
DX: A41.9 Sepsis, unspecified organism (principal); J18.9 Pneumonia, unspecified organism; J96.01 Acute respiratory failure with hypoxia; I42.9 Cardiomyopathy, unspecified; E87.8 Other disorders of electrolyte and fluid balance, not elsewhere classified; I11.0 Hypertensive heart disease with heart failure; I50.9 Heart failure, unspecified; E11.9 Type 2 diabetes mellitus without complications; E27.1 Primary adrenocortical insufficiency; E87.1 Hypo-osmolality and hyponatremia; J44.0 Chronic obstructive pulmonary disease with (acute) lower respiratory infection; E86.0 Dehydration; F32.9 Major depressive disorder, single episode, unspecified; K21.9 Gastro-esophageal reflux disease without esophagitis; H54.7 Unspecified visual loss; E66.9 Obesity, unspecified; Z68.33 Body mass index [BMI] 33.0-33.9, adult; G47.33 Obstructive sleep apnea (adult) (pediatric); Z79.52 Long term (current) use of systemic steroids; Z79.899 Other long term (current) drug therapy; Z79.84 Long term (current) use of oral hypoglycemic drugs; E03.9 Hypothyroidism, unspecified; Z85.6 Personal history of leukemia; Z90.81 Acquired absence of spleen; Z90.49 Acquired absence of other specified parts of digestive tract
CPT/HCPCS: 36415; 71045; 71045-26; 80048; 80053; 80202; 81001; 82962; 83605; 83735; 83880; 84443; 84484; 85025; 87040; 87070; 87081; 87205; 87804; 87880-QW; 93005; 94640; 96361; 96365; 96375; 99285-25; A9270-GY; J0696; J1644; J1720; J1815-GY; J2543; J2930; J3370; J7030; J7040; J7620-GY

== ENCOUNTER 2020-02-19 13:08 | Emergency (ER) | payer BC ==
[2020-02-19] MEDS ORDERED: Sodium Chloride 0.9% 2.5 ML Syringe FLUSH PRN (13:31)
[2020-02-19] MEDS ORDERED: Sodium Chloride 0.9% 10 ML Syringe FLUSH PRN (13:31)
[2020-02-19] MEDS ORDERED: Sodium Chloride 0.9% 1,000 ML IV ONE (13:37)
--- NOTE | 2020-02-19 13:44 | EDM.PDOC ---
ED HPI GENERAL MEDICAL PROBLEM - General Chief Complaint: General Stated Complaint: DIZZINESS SWOLLEN LEFT LEG Time Seen by Provider: 02/19/20 13:29 Source of Information: Reports: Patient History Limitations: Reports: No Limitations - History of Present Illness INITIAL COMMENTS - FREE TEXT/NARRATIVE: HISTORY AND PHYSICAL: History of present illness: Patient is a 44-year-old male who presents to the emergency room with complaints of dizziness, fatigue and nausea. Patient states about 1 hour prior to arrival he had a 10-minute episode of dizziness while at rest. This started while he was sitting in the chair and resolved on its own. He states he has felt increased fatigue and slightly nauseated. He initially was concerned that his blood sugar could be low as he is a type II diabetic. This was checked at the bedside, 124. Patient is concerned of some slight swelling of the left lower extremity. He denies any numbness, tingling, saddle paresthesias. He denies a ny slurred speech, weakness, or neurological deficits. Patient denies any fever, chills, headache, change in vision, syncope or near syncope. Denies any chest pain, back pain, shortness of breath or cough. Denies any abdominal pain, vomiting, diarrhea, constipation or dysuria. Has not noted any blood in urine or stool. Patient has been eating and drinking appropriately. Review of systems: As per history of present illness and below otherwise all systems reviewed and negative. Past medical history: As per history of present illness and as reviewed below otherwise noncontributory. Surgical history: As per history of present illness and as reviewed below otherwise noncontributory. Social history: See social history for further information Family history: As per history of present illness and as reviewed below otherwise noncontributory. Physical exam: General: Well developed and well nourished. Alert and orientated x 3. Nontoxic in appearance and in no acute distress. Vital signs are stable and have been reviewed by me. Nursing notes were reviewed. HEENT: Atraumatic, normocephalic, pupils equal and reactive bilaterally, negative for conjunctival pallor or scleral icterus, mucous membranes moist, TMs normal bilaterally, throat clear, neck supple, nontender, trachea midline. No drooling or trismus noted. No meningeal signs. No hot potato voice noted. Lungs: Clear to auscultation, breath sounds equal bilaterally, chest nontender. Normal work of breathing, no accessory muscles used. Heart: S1S2, regular rate and rhythm without overt murmur Abdomen: Soft, obese, nontender. Negative for masses or hepatosplenomegaly. Negative for costovertebral tenderness. Skin: Slight diffuse redness and warmth of the left lower tib/fib region anterior (does not extend into the calf). Intact, warm, dry. No lesions or rashes noted. Hematologic: No petechiae or purpra. Mucosa appropriate color and normal nail bed color and refill. Extremities: Atraumatic, moves all extremities per self without difficulty or deficits, negative for cords or calf pain. Neurovascular unremarkable. Neuro: Awake, alert, oriented. Cranial nerves II through XII unremarkable. Cerebellum unremarkable. Motor and sensory unremarkable throughout. Exam nonfocal. Psychiatric: Mood and affect are appropriate. Normal thought process. Answering questions appropriately. Notes: NIH: 0, GCS: 15. No concerns for needing a head CT. Chest x-ray is unremarkable. Ultrasound shows no evidence of a DVT. He does have a slight leukocytosis which is from the cellulitis of the left lower extremity. We did discuss admission which I suggested. He would prefer to be discharged to home with close follow-up with his primary care provider and outpatient antibiotics. He states he feels better and has not had any dizziness while here. We discussed in great lengths signs and symptoms that would prompt them to return to the Emergency Department. Medication, follow up and supportive care measures were reviewed and discussed. Voices understanding and is agreeable to plan of care. Denies any further questions or concerns at this time. Diagnostics: CBC, CMP, UA, Troponin, EKG, CXR, Venous U/S [employer]: 500mls bolus then 125mls/hr Prescription: Keflex Impression: Cellulitis, left lower extremity Plan: 1. Today your physical exam shows concerns for soft tissue skin infection of the left lower extremity. Please take the antibiotic as we discussed. Continue to monitor the site; if area becomes worse you need to return. 2. Alternate Tylenol and/or Ibuprofen as needed for pain and fever. Continue to monitoor your blood sugars. 3. We always encourage you to follow up with your primary care provider or recommended specialist in the next few days for re-evaluation and further care/management. If your symptoms should worsen, new symptoms develop or any of the signs and symptoms we discussed should arise please return to the emergency room or call 911 (if needed). Definitive disposition and diagnosis as appropriate pending reevaluation and review of above. - Related Data Allergies Allergy/AdvReac Type Severity Reaction Status Date / Time No Known Allergies Allergy Verified 02/19/20 13:12 Home Meds: Home Meds Pantoprazole [ProTONIX] 40 mg PO DAILY 09/29/14 [History] Sertraline [Zoloft] 50 mg PO DAILY 09/29/14 [History] Magnesium Oxide [Magnesium] 400 mg PO DAILY 11/02/14 [History] Melatonin/Pyridoxine HCl (B6) [Melatonin 3 mg Tablet] 3 mg PO BEDTIME PRN 11/02/14 [History] LORazepam 0.5 mg PO Q6HR PRN 12/12/14 [History] Fludrocortisone [Florinef] 0.05 mg PO BIDMEALS #60 tablet 12/16/14 [Rx] Canagliflozin [Invokana] 300 mg PO DAILY 12/11/15 [History] Ondansetron [Ondansetron ODT] 4 mg PO Q6H PRN 12/11/15 [History] Hydrocortisone 10 mg PO QAM #45 tablet 12/12/15 [Rx] glipiZIDE [Glipizide ER] 2 mg PO DAILY 01/02/17 [History] Glimepiride [Amaryl] 2 mg PO DAILY 10/28/18 [History] Hydrocortisone 10 mg PO Q12HR 10/28/18 [History] Amoxicillin/Potassium Clav [Augmentin 875-125 Tablet] 1 each PO Q12H 6 Days #12 tablet 11/01/18 [Rx] cephALEXin [Keflex] 500 mg PO TID 7 Days #21 capsule 02/19/20 [Rx] Past Medical History HEENT History: Reports: Impaired Vision, Other (See Below) Other HEENT History: glasses Cardiovascular History: Reports: Hypertension Other Cardiovascular History: "fluid buildup on the heart" Respiratory History: Reports: Pneumonia, Recurrent Gastrointestinal History: Reports: None Genitourinary History: Reports: None Musculoskeletal History: Reports: None Neurological History: Reports: None Psychiatric History: Reports: Anxiety, Depression Endocrine/Metabolic History: Reports: [place]'s Disease, Diabetes, Type II, Obesity/BMI 30+ Other Endocrine/Metabolic History: adrenal insufficiency Hematologic History: Reports: Anesthesia Reaction, Other (See Below) Other Hematologic History: Anesthesia reaction per pt report: "undiagnosed addisonian crisis". 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 Diff - Past Surgical History Head Surgeries/Procedures: Reports: None HEENT Surgical History: Reports: None Cardiovascular Surgical History: Reports: None Respiratory Surgical History: Reports: None GI Surgical History: Reports: Cholecystectomy, Other (See Below) Other GI Surgeries/Procedures: spleenectomy Male Surgical History: Reports: None Endocrine Surgical History: Reports: None Neurological Surgical History: Reports: None Musculoskeletal Surgical History: Reports: None Oncologic Surgical History: Reports: None Dermatological Surgical History: Reports: None Social & Family History - Family History Family Medical History: Noncontributory Respiratory: Reports: COPD, Other (See Below) Other Respiratory Family Hisory: pneumonia : Reports: Other (See Below) Other Family History: renal failure Endocrine/Metabolic: Reports: Diabetes, type II, Hypothyroidism Oncologic: Reports: Skin, Thyroid, Other (See Below) Other Oncologic Family History: stomach - Tobacco Use Smoking Status *Q: Never Smoker Second Hand Smoke Exposure: No - Caffeine Use Caffeine Use: Reports: Tea Caffeine Use Comment: 3-4 drinks - Recreational Drug Use Recreational Drug Use: No - Living Situation & Occupation Living situation: Reports: Single Occupation: Employed ED ROS GENERAL - Review of Systems Review Of Systems: Comprehensive ROS is negative, except as noted in HPI. ED EXAM, GENERAL - Physical Exam Exam: See Below (See dictation) Course - Vital Signs Last Recorded V/S: Last Vital Signs Temp 95.4 F L 02/19/20 13:10 Pulse 68 02/19/20 13:50 Resp 14 02/19/20 13:50 BP 122/63 02/19/20 13:52 Pulse Ox 94 L 02/19/20 13:52 - Orders/Labs/Meds Orders: Active Orders 24 hr Category Date Time Status Blood Glucose Check, Bedside [RC] ONETIME Care 02/19/20 13:38 Active Cardiac Monitoring [RC] . DIRECTED Care 02/19/20 13:32 Active EKG Documentation Completion [RC] STAT Care 02/19/20 13:30 Active UA RFX JUDE AND CULT IF INDIC [URIN] Stat Lab 02/19/20 13:30 Ordered Sodium Chloride 0.9% [Saline Flush] Med 02/19/20 13:31 Active 10 ml FLUSH ASDIRECTED PRN Sodium Chloride 0.9% [Saline Flush] Med 02/19/20 13:31 Active 2.5 ml FLUSH ASDIRECTED PRN Saline Lock Insert [OM.PC] Stat Oth 02/19/20 13:32 Ordered Medication Orders Sodium Chloride (Saline Flush) 10 ml FLUSH ASDIRECTED PRN PRN Reason: Keep Vein Open Last Admin: 02/19/20 13:47 Dose: 10 ml Documented by: DEANNE Sodium Chloride (Saline Flush) 2.5 ml FLUSH ASDIRECTED PRN PRN Reason: Keep Vein Open Last Admin: 02/19/20 13:46 Dose: 2.5 ml Documented by: DEANNE Labs: Laboratory Tests 02/19/20 02/19/20 02/19/20 Range/Units 13:27 13:27 13:27 WBC 13.01 H (4.0-11.0) K/uL RBC 4.79 (4.50-5.90) M/uL Hgb 14.3 (13.0-17.0) g/dL Hct 43.2 (38.0-50.0) % MCV 90.2 (80.0-98.0) fL MCH 29.9 (27.0-32.0) pg MCHC 33.1 (31.0-37.0) g/dL RDW Std Deviation 47.5 (28.0-62.0) fl RDW Coeff of Carlos 14 (11.0-15.0) % Plt Count 305 (150-400) K/uL MPV 10.50 (7.40-12.00) fL Neut % (Auto) 51.2 (48.0-80.0) % Lymph % (Auto) 34.9 (16.0-40.0) % [place] % (Auto) 11.9 (0.0-15.0) % Eos % (Auto) 1.8 (0.0-7.0) % Baso % (Auto) 0.2 (0.0-1.5) % Neut # (Auto) 6.7 H (1.4-5.7) K/uL Lymph # (Auto) 4.5 H (0.6-2.4) K/uL [place] # (Auto) 1.6 H (0.0-0.8) K/uL Eos # (Auto) 0.2 (0.0-0.7) K/uL Baso # (Auto) 0.0 (0.0-0.1) K/uL Nucleated RBC % 0.0 /100WBC Nucleated RBCs # 0 K/uL Lactate (0.20-2.00) mmol/L Sodium 135 L (136-148) mmol/L Potassium 4.6 (3.5-5.1) mmol/L Chloride 101 (98-107) mmol/L Carbon Dioxide 22.5 (21.0-32.0) mmol/L BUN 20 H (7.0-18.0) mg/dL Creatinine 1.1 (0.8-1.3) mg/dL Est Cr Clr Drug Dosing 108.48 mL/min Estimated GFR (MDRD) > 60.0 ml/min Glucose 135 H (74-106) mg/dL Calcium 9.2 (8.5-10.1) mg/dL Total Bilirubin 0.5 (0.2-1.0) mg/dL AST 20 (15-37) IU/L ALT 36 (14-63) IU/L Alkaline Phosphatase 74 (46-116) U/L Troponin I < 0.050 (0.000-0.056) ng/mL B-Natriuretic Peptide 7 (<100) PG/ML Total Protein 8.0 (6.4-8.2) g/dL Albumin 3.8 (3.4-5.0) g/dL Globulin 4.2 H (2.6-4.0) g/dL Albumin/Globulin Ratio 0.9 (0.9-1.6) 02/19/20 Range/Units 13:27 WBC (4.0-11.0) K/uL RBC (4.50-5.90) M/uL Hgb (13.0-17.0) g/dL Hct (38.0-50.0) % MCV (80.0-98.0) fL MCH (27.0-32.0) pg MCHC (31.0-37.0) g/dL RDW Std Deviation (28.0-62.0) fl RDW Coeff of Carlos (11.0-15.0) % Plt Count (150-400) K/uL MPV (7.40-12.00) fL Neut % (Auto) (48.0-80.0) % Lymph % (Auto) (16.0-40.0) % [place] % (Auto) (0.0-15.0) % Eos % (Auto) (0.0-7.0) % Baso % (Auto) (0.0-1.5) % Neut # (Auto) (1.4-5.7) K/uL Lymph # (Auto) (0.6-2.4) K/uL [place] # (Auto) (0.0-0.8) K/uL Eos # (Auto) (0.0-0.7) K/uL Baso # (Auto) (0.0-0.1) K/uL Nucleated RBC % /100WBC Nucleated RBCs # K/uL Lactate 1.4 (0.20-2.00) mmol/L Sodium (136-148) mmol/L Potassium (3.5-5.1) mmol/L Chloride (98-107) mmol/L Carbon Dioxide (21.0-32.0) mmol/L BUN (7.0-18.0) mg/dL Creatinine (0.8-1.3) mg/dL Est Cr Clr Drug Dosing mL/min Estimated GFR (MDRD) ml/min Glucose (74-106) mg/dL Calcium (8.5-10.1) mg/dL Total Bilirubin (0.2-1.0) mg/dL AST (15-37) IU/L ALT (14-63) IU/L Alkaline Phosphatase (46-116) U/L Troponin I (0.000-0.056) ng/mL B-Natriuretic Peptide (<100) PG/ML Total Protein (6.4-8.2) g/dL Albumin (3.4-5.0) g/dL Globulin (2.6-4.0) g/dL Albumin/Globulin Ratio (0.9-1.6) Meds: Medications Generic Name Dose Route Start Last Admin Trade Name Freq PRN Reason Stop Dose Admin Sodium Chloride 10 ml 02/19/20 13:31 02/19/20 13:47 Saline Flush FLUSH 10 ml ASDIRECTED PRN Administration Keep Vein Open Sodium Chloride 2.5 ml 02/19/20 13:31 02/19/20 13:46 Saline Flush FLUSH 2.5 ml ASDIRECTED PRN Administration Keep Vein Open Discontinued Medications Generic Name Dose Route Start Last Admin Trade Name Freq PRN Reason Stop Dose Admin Sodium Chloride 1,000 mls @ 999 mls/hr 02/19/20 13:37 02/19/20 13:46 Normal Saline IV 02/19/20 14:37 999 mls/hr STAT ONE Administration Departure - Departure Time of Disposition: 14:57 Disposition: Home, Self-Care 01 Clinical Impression: Cellulitis Qualifiers: Site of cellulitis: extremity Site of cellulitis of extremity: lower extremity Laterality: left Qualified Code(s): L03.116 - Cellulitis of left lower limb - Discharge Information Prescriptions: cephALEXin [Keflex] 500 mg PO TID 7 Days #21 capsule Instructions: Cellulitis, Adult, [id number] Referrals: Neil Florez MD [Primary Care Provider] - Forms: ED Department Discharge Additional Instructions: The following information is given to patients seen in the emergency department who are being discharged to home. This information is to outline your options for follow-up care. We provide all patients seen in our emergency department with a follow-up referral. The need for follow-up, as well as the timing and circumstances, are variable depending upon the specifics of your emergency department visit. If you don't have a primary care physician on staff, we will provide you with a referral. We always advise you to contact your personal physician following an emergency department visit to inform them of the circumstance of the visit and for follow-up with them and/or the need for any referrals to a consulting specialist. The emergency department will also refer you to a specialist when appropriate. This referral assures that you have the opportunity for follow-up care with a specialist. All of these measure are taken in an effort to provide you with optimal care, which includes your follow-up. Under all circumstances we always encourage you to contact your private physician who remains a resource for coordinating your care. When calling for follow-up care, please make the office aware that this follow-up is from your recent emergency room visit. If for any reason you are refused follow-up, please contact the [facility] Emergency Department at and asked to speak to the emergency department charge nurse. [facility] [address] [place] [address] [facility] [address] [place] [address] Thank you for choosing the [facility] emergency department in [place] for your medical needs today. It was a pleasure caring for you. Today you were seen in the emergency department for dizziness, left leg redness/swelling. 1. Today your physical exam shows concerns for soft tissue skin infection of the left lower extremity. Please take the antibiotic as we discussed. Continue to monitor the site; if area becomes worse you need to return. 2. Alternate Tylenol and/or Ibuprofen as needed for pain and fever. Continue to monitor your blood sugars. 3. We always encourage you to follow up with your primary care provider or recommended specialist in the next few days for re-evaluation and further care/management. If your symptoms should worsen, new symptoms develop or any of the signs and symptoms we discussed should arise please return to the emergency room or call 911 (if needed). Sepsis Event Note (ED) - Evaluation Sepsis Screening Result: No Definite Risk - Focused Exam Vital Signs: Vital Signs Temp Pulse Resp BP Pulse Ox 02/19/20 13:52 122/63 94 L 02/19/20 13:50 68 14 84 L 02/19/20 13:10 95.4 F L 81 18 92/58 L 96 - My Orders Last 24 Hours: My Active Orders 02/19/20 13:30 EKG Documentation Completion [RC] STAT UA RFX JUDE AND CULT IF INDIC [URIN] Stat 02/19/20 13:31 Sodium Chloride 0.9% [Saline Flush] 10 ml FLUSH ASDIRECTED PRN Sodium Chloride 0.9% [Saline Flush] 2.5 ml FLUSH ASDIRECTED PRN 02/19/20 13:32 Cardiac Monitoring [RC] . DIRECTED Saline Lock Insert [OM.PC] Stat 02/19/20 13:38 Blood Glucose Check, Bedside [RC] ONETIME - Assessment/Plan Last 24 Hours: My Active Orders 02/19/20 13:30 EKG Documentation Completion [RC] STAT UA RFX JUDE AND CULT IF INDIC [URIN] Stat 02/19/20 13:31 Sodium Chloride 0.9% [Saline Flush] 10 ml FLUSH ASDIRECTED PRN Sodium Chloride 0.9% [Saline Flush] 2.5 ml FLUSH ASDIRECTED PRN 02/19/20 13:32 Cardiac Monitoring [RC] . DIRECTED Saline Lock Insert [OM.PC] Stat 02/19/20 13:38 Blood Glucose Check, Bedside [RC] ONETIME
[2020-02-19 13:54] VITALS: BP 122/63; PULSE 68
[2020-02-19 14:03] LABS: BLOOD UREA NITROGEN,BUN 20 mg/dL (7.0-18.0); CARBON DIOXIDE,CO2 22.5 mmol/L (21.0-32.0); CHLORIDE,CL 101 mmol/L (98-107); GLUCOSE RANDOM 135 mg/dL (74-106); POTASSIUM,K 4.6 mmol/L (3.5-5.1); SODIUM,NA 135 mmol/L (136-148)
--- NOTE | 2020-02-19 14:03 | CR ---
INDICATION: Dizzy TECHNIQUE: Single view chest. FINDINGS: The lungs are clear. The heart, mediastinum and pulmonary vessels are of normal size. There is no evidence of pleural disease. IMPRESSION: Negative chest. Dictated by Maria Guadalupe Blankenship MD @ Feb 19 2020 2:02PM Signed by Dr. Maria Guadalupe Blankenship @ Feb 19 2020 2:03PM
--- NOTE | 2020-02-19 14:49 | US ---
Left lower extremity deep venous ultrasound: Duplex and color Doppler evaluation was obtained of the left common femoral, superficial femoral, popliteal, posterior tibial, peroneal and anterior tibial veins. Findings: Normal compression and Doppler blood flow are seen. Impression: 1. No evidence of deep venous thrombosis within the left lower extremity. Diagnostic code #1 This report was dictated in MDT
== END 2020-02-19 15:20 | disposition home or self-care (01) ==
LOC: MW.ED 13:08
DX: L03.116 Cellulitis of left lower limb (principal); R42 Dizziness and giddiness; R53.83 Other fatigue; I10 Essential (primary) hypertension; F41.9 Anxiety disorder, unspecified; F32.9 Major depressive disorder, single episode, unspecified; E11.9 Type 2 diabetes mellitus without complications; E66.9 Obesity, unspecified; Z68.39 Body mass index [BMI] 39.0-39.9, adult; Z79.899 Other long term (current) drug therapy
CPT/HCPCS: 36415; 71045; 80053; 83605; 83880; 84484; 85025; 93005; 93971; 96360; 96361; 99284; J7030

== ENCOUNTER 2020-04-05 10:36 | Emergency (ER) | payer BC, OTHER ==
[2020-04-05] MEDS ORDERED: Sodium Chloride 0.9% 2.5 ML Syringe FLUSH PRN ×2 (10:58→11:07)
[2020-04-05] MEDS ORDERED: Sodium Chloride 0.9% 10 ML Syringe FLUSH PRN ×2 (10:58→11:07)
[2020-04-05 11:25] LABS: BLOOD UREA NITROGEN,BUN 17 mg/dL (7.0-18.0); CHLORIDE,CL 100 mmol/L (98-107); GLUCOSE RANDOM 157 mg/dL (74-106); POTASSIUM,K 4.3 mmol/L (3.5-5.1); SODIUM,NA 136 mmol/L (136-148)
--- NOTE | 2020-04-05 12:55 | EDM.PDOC ---
ED HPI GENERAL MEDICAL PROBLEM - General Chief Complaint: Chest Pain Stated Complaint: CHEST PAIN SOB Time Seen by Provider: 04/05/20 10:40 - History of Present Illness INITIAL COMMENTS - FREE TEXT/NARRATIVE: History of present illness: [] Patient presents with shortness of breath and chest pain that is described as sharp pain starting out in the right shoulder now radiating into the left shoulder. It is all substernal and above the nipple line he has a swollen left leg that he attributes to a chronic cellulitis. It has supposedly gotten somewhat worse in the last several days he denies any fever chills or cough nothing seems to make it better or worse he has a history of leukemia and is not undergoing any treatment for this at this time Review of systems: As per history of present illness and below otherwise all systems reviewed and negative. Past medical history: As per history of present illness and as reviewed below otherwise noncontributory. Surgical history: As per history of present illness and as reviewed below otherwise noncontributory. Social history: No reported history of drug or alcohol abuse. Family history: As per history of present illness and as reviewed below otherwise noncontribut ory. Physical exam: HEENT: Atraumatic, normocephalic, pupils reactive, negative for conjunctival pallor or scleral icterus, mucous membranes moist, throat clear, neck supple, nontender, trachea midline. Lungs: Clear to auscultation, breath sounds equal bilaterally, chest nontender. Heart: S1S2, regular, negative for clicks, rubs, or JVD. Tachycardia Abdomen: Soft, nondistended, nontender. Negative for masses or hepatosplenomegaly. Negative for costovertebral tenderness. Pelvis: Stable nontender. Genitourinary: Deferred. Rectal: Deferred. Extremities: Atraumatic, negative for cords or calf pain. Neurovascular unremarkable. Left calf is enlarged swollen and tender. Neuro: Awake, alert, oriented. Cranial nerves II through XII unremarkable. Cerebellum unremarkable. Motor and sensory unremarkable throughout. Exam nonfocal. Diagnostics: [] Therapeutics: [] Impression: Patient is suspicious for pulmonary embolus cardiac work-up will be obtained including a CTA of the chest [] Plan: [] Definitive disposition and diagnosis as appropriate pending reevaluation and review of above. Chest Pain Score (Numeric/FACES): 7 - Related Data Allergies Allergy/AdvReac Type Severity Reaction Status Date / Time No Known Allergies Allergy Verified 04/05/20 11:07 Home Meds: Home Meds Pantoprazole [ProTONIX] 40 mg PO DAILY 09/29/14 [History] Sertraline [Zoloft] 50 mg PO DAILY 09/29/14 [History] Magnesium Oxide [Magnesium] 400 mg PO DAILY 11/02/14 [History] Melatonin/Pyridoxine HCl (B6) [Melatonin 3 mg Tablet] 3 mg PO BEDTIME PRN 11/02/14 [History] LORazepam 0.5 mg PO Q6HR PRN 12/12/14 [History] Fludrocortisone [Florinef] 0.05 mg PO BIDMEALS #60 tablet 12/16/14 [Rx] Canagliflozin [Invokana] 300 mg PO DAILY 12/11/15 [History] Ondansetron [Ondansetron ODT] 4 mg PO Q6H PRN 12/11/15 [History] Hydrocortisone 10 mg PO QAM #45 tablet 12/12/15 [Rx] glipiZIDE [Glipizide ER] 2 mg PO DAILY 01/02/17 [History] Glimepiride [Amaryl] 2 mg PO DAILY 10/28/18 [History] Hydrocortisone 10 mg PO Q12HR 10/28/18 [History] Amoxicillin/Potassium Clav [Augmentin 875-125 Tablet] 1 each PO Q12H 6 Days #12 tablet 11/01/18 [Rx] cephALEXin [Keflex] 500 mg PO TID 7 Days #21 capsule 02/19/20 [Rx] Doxycycline [Vibra-Tabs] 100 mg PO BID #20 tablet 04/05/20 [Rx] Hydrocortisone [Cortef] 5 mg PO BID #20 tablet 04/05/20 [Rx] Naproxen [Naprosyn] 500 mg PO Q12HR #20 tab 04/05/20 [Rx] Past Medical History HEENT History: Reports: Impaired Vision, Other (See Below) Other HEENT History: glasses Cardiovascular History: Reports: Hypertension Other Cardiovascular History: "fluid buildup on the heart" Respiratory History: Reports: Pneumonia, Recurrent Gastrointestinal History: Reports: None Genitourinary History: Reports: None Musculoskeletal History: Reports: None Neurological History: Reports: None Psychiatric History: Reports: Anxiety, Depression 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 Diff - Past Surgical History Head Surgeries/Procedures: Reports: None HEENT Surgical History: Reports: None Cardiovascular Surgical History: Reports: None Respiratory Surgical History: Reports: None GI Surgical History: Reports: Cholecystectomy, Other (See Below) Other GI Surgeries/Procedures: spleenectomy Male Surgical History: Reports: None Endocrine Surgical History: Reports: None Neurological Surgical History: Reports: None Musculoskeletal Surgical History: Reports: None Oncologic Surgical History: Reports: None Dermatological Surgical History: Reports: None Social & Family History - Family History Family Medical History: Noncontributory Respiratory: Reports: COPD, Other (See Below) Other Respiratory Family Hisory: pneumonia : Reports: Other (See Below) Other Family History: renal failure Endocrine/Metabolic: Reports: Diabetes, type II, Hypothyroidism Oncologic: Reports: Skin, Thyroid, Other (See Below) Other Oncologic Family History: stomach - Tobacco Use Smoking Status *Q: Never Smoker - Caffeine Use Caffeine Use: Reports: Tea Caffeine Use Comment: 3-4 drinks - Recreational Drug Use Recreational Drug Use: No - Living Situation & Occupation Living situation: Reports: Single Occupation: Employed ED ROS GENERAL - Review of Systems Review Of Systems: See Below ED EXAM, GENERAL - Physical Exam Exam: See Below EKG INTERPRETATION EKG Interpretation Comments: EKG is a normal sinus rhythm rate of 112 bpm sinus tachycardia nonstick ST-T changes no [place] ischemia read and interpreted by me Course - Vital Signs Text/Narrative:: Patient presented with swollen left leg with tachycardia and some mild hypoxia it was very suspicious for pulmonary embolus however CT angiogram the chest does not demonstrate this nor pneumonia. He is stable and his oxygen saturations on repeat examination he does have a 18,000 white count his leg is reddened and he has had cellulitis there before so I believe he simply has a repeated cellulitis he will be given a stress dose of his hydrocortisone to take this week he will be given doxycycline for the cellulitis and naproxen for the shoulder pain he is having. Follow-up with his primary care doctor. Last Recorded V/S: Last Vital Signs Temp 36.3 C 04/05/20 10:50 Pulse 98 04/05/20 13:27 Resp 17 04/05/20 12:10 BP 110/71 04/05/20 13:27 Pulse Ox 98 04/05/20 13:27 - Orders/Labs/Meds Orders: Active Orders 24 hr Category Date Time Status EKG Documentation Completion [RC] STAT Care 04/05/20 10:58 Active CORONAVIRUS COVID-19 PCR PHL Stat Lab 04/05/20 14:25 Received Sodium Chloride 0.9% [Saline Flush] Med 04/05/20 11:07 Active 10 ml FLUSH ASDIRECTED PRN Sodium Chloride 0.9% [Saline Flush] Med 04/05/20 11:07 Active 2.5 ml FLUSH ASDIRECTED PRN Saline Lock Insert [OM.PC] Stat Oth 04/05/20 10:58 Ordered Saline Lock Insert [OM.PC] Stat Oth 04/05/20 11:09 Ordered Medication Orders Sodium Chloride (Saline Flush) 10 ml FLUSH ASDIRECTED PRN PRN Reason: Keep Vein Open Last Admin: 04/05/20 13:37 Dose: 10 ml Documented by: SID Sodium Chloride (Saline Flush) 2.5 ml FLUSH ASDIRECTED PRN PRN Reason: Keep Vein Open Last Admin: 04/05/20 13:36 Dose: 2.5 ml Documented by: SID Labs: Laboratory Tests 04/05/20 04/05/20 04/05/20 Range/Units 10:40 10:40 10:40 WBC 18.86 H (4.0-11.0) K/uL RBC 4.30 L (4.50-5.90) M/uL Hgb 13.0 (13.0-17.0) g/dL Hct 40.2 (38.0-50.0) % MCV 93.5 (80.0-98.0) fL MCH 30.2 (27.0-32.0) pg MCHC 32.3 (31.0-37.0) g/dL RDW Std Deviation 48.8 (28.0-62.0) fl RDW Coeff of Carlos 14 (11.0-15.0) % Plt Count 342 (150-400) K/uL MPV 10.50 (7.40-12.00) fL Neut % (Auto) 65.2 (48.0-80.0) % Lymph % (Auto) 20.0 (16.0-40.0) % [place] % (Auto) 13.8 (0.0-15.0) % Eos % (Auto) 0.8 (0.0-7.0) % Baso % (Auto) 0.2 (0.0-1.5) % Neut # (Auto) 12.3 H (1.4-5.7) K/uL Lymph # (Auto) 3.8 H (0.6-2.4) K/uL [place] # (Auto) 2.6 H (0.0-0.8) K/uL Eos # (Auto) 0.2 (0.0-0.7) K/uL Baso # (Auto) 0.0 (0.0-0.1) K/uL Nucleated RBC % 0.0 /100WBC Nucleated RBCs # 0 K/uL Sodium 136 (136-148) mmol/L Potassium 4.3 (3.5-5.1) mmol/L Chloride 100 (98-107) mmol/L Carbon Dioxide 28.0 (21.0-32.0) mmol/L BUN 17 (7.0-18.0) mg/dL Creatinine 1.0 (0.8-1.3) mg/dL Est Cr Clr Drug Dosing 100.23 mL/min Estimated GFR (MDRD) > 60.0 ml/min Glucose 157 H (74-106) mg/dL Calcium 8.9 (8.5-10.1) mg/dL Total Bilirubin 0.7 (0.2-1.0) mg/dL AST 15 (15-37) IU/L ALT 30 (14-63) IU/L Alkaline Phosphatase 67 (46-116) U/L Troponin I < 0.050 (0.000-0.056) ng/mL B-Natriuretic Peptide 29 (<100) PG/ML Total Protein 7.8 (6.4-8.2) g/dL Albumin 3.6 (3.4-5.0) g/dL Globulin 4.2 H (2.6-4.0) g/dL Albumin/Globulin Ratio 0.9 (0.9-1.6) SARS CoV-2 RNA Rapid NISH (NEGATIVE) 04/05/20 Range/Units 14:25 WBC (4.0-11.0) K/uL RBC (4.50-5.90) M/uL Hgb (13.0-17.0) g/dL Hct (38.0-50.0) % MCV (80.0-98.0) fL MCH (27.0-32.0) pg MCHC (31.0-37.0) g/dL RDW Std Deviation (28.0-62.0) fl RDW Coeff of Carlos (11.0-15.0) % Plt Count (150-400) K/uL MPV (7.40-12.00) fL Neut % (Auto) (48.0-80.0) % Lymph % (Auto) (16.0-40.0) % [place] % (Auto) (0.0-15.0) % Eos % (Auto) (0.0-7.0) % Baso % (Auto) (0.0-1.5) % Neut # (Auto) (1.4-5.7) K/uL Lymph # (Auto) (0.6-2.4) K/uL [place] # (Auto) (0.0-0.8) K/uL Eos # (Auto) (0.0-0.7) K/uL Baso # (Auto) (0.0-0.1) K/uL Nucleated RBC % /100WBC Nucleated RBCs # K/uL Sodium (136-148) mmol/L Potassium (3.5-5.1) mmol/L Chloride (98-107) mmol/L Carbon Dioxide (21.0-32.0) mmol/L BUN (7.0-18.0) mg/dL Creatinine (0.8-1.3) mg/dL Est Cr Clr Drug Dosing mL/min Estimated GFR (MDRD) ml/min Glucose (74-106) mg/dL Calcium (8.5-10.1) mg/dL Total Bilirubin (0.2-1.0) mg/dL AST (15-37) IU/L ALT (14-63) IU/L Alkaline Phosphatase (46-116) U/L Troponin I (0.000-0.056) ng/mL B-Natriuretic Peptide (<100) PG/ML Total Protein (6.4-8.2) g/dL Albumin (3.4-5.0) g/dL Globulin (2.6-4.0) g/dL Albumin/Globulin Ratio (0.9-1.6) SARS CoV-2 RNA Rapid NISH NEGATIVE (NEGATIVE) Meds: Medications Generic Name Dose Route Start Last Admin Trade Name Freq PRN Reason Stop Dose Admin Sodium Chloride 10 ml 04/05/20 11:07 04/05/20 13:37 Saline Flush FLUSH 10 ml ASDIRECTED PRN Administration Keep Vein Open Sodium Chloride 2.5 ml 04/05/20 11:07 04/05/20 13:36 Saline Flush FLUSH 2.5 ml ASDIRECTED PRN Administration Keep Vein Open Discontinued Medications Generic Name Dose Route Start Last Admin Trade Name Freq PRN Reason Stop Dose Admin Iopamidol 100 ml 04/05/20 12:58 04/05/20 12:58 Isovue Multipack-370 (76%) IVPUSH 04/05/20 12:59 100 ml ONETIME STA Administration Sodium Chloride 10 ml 04/05/20 10:58 04/05/20 13:37 Saline Flush FLUSH 10 ml ASDIRECTED PRN Administration Keep Vein Open Sodium Chloride 2.5 ml 04/05/20 10:58 04/05/20 13:37 Saline Flush FLUSH 2.5 ml ASDIRECTED PRN Administration Keep Vein Open Departure - Departure Time of Disposition: 15:36 Disposition: Home, Self-Care 01 Condition: Good Clinical Impression: Chest pain Cellulitis Qualifiers: Site of cellulitis: extremity Site of cellulitis of extremity: lower extremity Laterality: left Qualified Code(s): L03.116 - Cellulitis of left lower limb - Discharge Information *PRESCRIPTION DRUG MONITORING PROGRAM REVIEWED*: Not Applicable *COPY OF PRESCRIPTION DRUG MONITORING REPORT IN PATIENT CHELSI: Not Applicable Prescriptions: Hydrocortisone [Cortef] 5 mg PO BID #20 tablet Naproxen [Naprosyn] 500 mg PO Q12HR #20 tab Doxycycline [Vibra-Tabs] 100 mg PO BID #20 tablet Instructions: Cellulitis, Adult, Nonspecific Chest Pain, Adult Referrals: Neil Florez MD [Primary Care Provider] - Forms: ED Department Discharge Additional Instructions: The following information is given to patients seen in the emergency department who are being discharged to home. This information is to outline your options for follow-up care. We provide all patients seen in our emergency department with a follow-up referral. The need for follow-up, as well as the timing and circumstances, are variable depending upon the specifics of your emergency department visit. If you don't have a primary care physician on staff, we will provide you with a referral. We always advise you to contact your personal physician following an emergency department visit to inform them of the circumstance of the visit and for follow-up with them and/or the need for any referrals to a consulting specialist. The emergency department will also refer you to a specialist when appropriate. This referral assures that you have the opportunity for follow-up care with a specialist. All of these measure are taken in an effort to provide you with optimal care, which includes your follow-up. Under all circumstances we always encourage you to contact your private physician who remains a resource for coordinating your care. When calling for follow-up care, please make the office aware that this follow-up is from your recent emergency room visit. If for any reason you are refused follow-up, please contact the [facility] Emergency Department at and asked to speak to the emergency department charge nurse. Sepsis Event Note (ED) - Evaluation Sepsis Screening Result: No Definite Risk - Focused Exam Vital Signs: Vital Signs Temp Pulse Resp BP Pulse Ox 04/05/20 13:27 98 110/71 98 04/05/20 12:10 100 17 119/74 95 04/05/20 11:56 97 117/75 96 04/05/20 11:40 100 17 98/68 94 L 04/05/20 11:25 107 H 18 95/55 L 94 L 04/05/20 10:50 36.3 C 111 H 17 111/59 L 98 - My Orders Last 24 Hours: My Active Orders 04/05/20 11:07 Sodium Chloride 0.9% [Saline Flush] 10 ml FLUSH ASDIRECTED PRN Sodium Chloride 0.9% [Saline Flush] 2.5 ml FLUSH ASDIRECTED PRN 04/05/20 11:09 Saline Lock Insert [OM.PC] Stat 04/05/20 14:25 CORONAVIRUS COVID-19 PCR PHL Stat - Assessment/Plan Last 24 Hours: My Active Orders 04/05/20 11:07 Sodium Chloride 0.9% [Saline Flush] 10 ml FLUSH ASDIRECTED PRN Sodium Chloride 0.9% [Saline Flush] 2.5 ml FLUSH ASDIRECTED PRN 04/05/20 11:09 Saline Lock Insert [OM.PC] Stat 04/05/20 14:25 CORONAVIRUS COVID-19 PCR PHL Stat
[2020-04-05] MEDS ORDERED: Iopamidol 755 MG/ML 500 ML Multipack Bottle IVPUSH STA (12:58)
--- NOTE | 2020-04-05 13:48 | CT ---
INDICATION: Shortness of breath and chest pain. TECHNIQUE: CT chest PE was acquired with 100 cc Isovue 370 IV contrast. COMPARISON: None. FINDINGS: Heart and vasculature: No sign of moderate to large or central pulmonary embolism. Heart size is normal. Thoracic aorta and pulmonary artery are normal in caliber. Lungs and pleural: There is a cluster of micro nodules in the posterior inferior right lower lobe. Remainder of the lungs are clear. No pleural effusions, pleural thickening, or pneumothorax. Lymph nodes/mediastinum: There are numerous markedly enlarged bilateral axillary lymph nodes, left greater than right. The largest lymph node is in the left axilla on series 401, image 173 measuring 4.6 x 3.1 cm. No mediastinal mass or lymphadenopathy. Left thyroid lobe nodule measures 1.4 cm. Chest wall: No masses. Upper abdomen: Normal. Bones: Unremarkable for age. IMPRESSION: 1. No moderate to large or central pulmonary embolism. Smaller pulmonary arteries are not adequately assessed on this exam. 2. Cluster micronodules in the posterior right lung base suggesting infectious bronchiolitis. 3. Marked bilateral axillary lymphadenopathy is worse on the left. This is nonspecific but concerning for a neoplastic process such as lymphoma. These nodes are amenable to percutaneous biopsy. 4. 1.4 cm left thyroid lobe nodule could be further evaluated with ultrasound. Please note that all CT scans at this facility use dose modulation, iterative reconstruction, and/or weight-based dosing when appropriate to reduce radiation dose to as low as reasonably achievable. Dictated by Travon Ladd MD @ Apr 05 2020 1:29PM Signed by Dr. Travon Ladd @ Apr 05 2020 1:47PM
[2020-04-05 15:54] VITALS: BP 128/69; PULSE 101
== END 2020-04-05 15:55 | disposition home or self-care (01) ==
LOC: MW.ED 10:36
DX: R07.2 Precordial pain (principal); L03.116 Cellulitis of left lower limb; R06.02 Shortness of breath; R00.0 Tachycardia, unspecified; R09.02 Hypoxemia; I10 Essential (primary) hypertension; F41.9 Anxiety disorder, unspecified; F32.9 Major depressive disorder, single episode, unspecified; E66.9 Obesity, unspecified; E11.9 Type 2 diabetes mellitus without complications; Z20.828 Contact with and (suspected) exposure to other viral communicable diseases; Z68.41 Body mass index [BMI] 40.0-44.9, adult; Z79.84 Long term (current) use of oral hypoglycemic drugs; Z90.49 Acquired absence of other specified parts of digestive tract; Z79.899 Other long term (current) drug therapy
CPT/HCPCS: 36415; 71275; 80053; 83880; 84484; 85025; 87635; 93005; 99285; Q9967; 93010; 99284; U0002

== ENCOUNTER 2020-09-12 16:40 | Emergency (ER) | payer BC ==
[2020-09-12] MEDS ORDERED: Sodium Chloride 0.9% 1,000 ML IV ONE (17:23)
--- NOTE | 2020-09-12 17:25 | EDM.PDOC ---
<Will Dumont - Last Filed: 09/12/20 17:38> ED HPI GENERAL MEDICAL PROBLEM - General Chief Complaint: General Stated Complaint: REFRRAL FOR CAT SCAN DR WILLSON Time Seen by Provider: 09/12/20 17:11 Source of Information: Reports: Patient History Limitations: Reports: No Limitations - History of Present Illness INITIAL COMMENTS - FREE TEXT/NARRATIVE: Patient is a 45-year-old male who was sent over by his PMD Dr. Willson for right lower quadrant pain. Patient's pain started today and does not meet better with anything but noticed that whenever he moves his right leg press area pain gets worse. Patient also reports decreased p.o. intake but denies any vomiting or diarrhea. Patient denies any fever chills. Patient did have some slight tingling with urination but denies any testicular or scrotal swelling or pain. right abdomen Pain Score (Numeric/FACES): 7 - Related Data Allergies Allergy/AdvReac Type Severity Reaction Status Date / Time No Known Allergies Allergy Verified 09/12/20 17:08 Home Meds: Home Meds Pantoprazole [ProTONIX] 40 mg PO DAILY 09/29/14 [History] Sertraline [Zoloft] 50 mg PO DAILY 09/29/14 [History] Magnesium Oxide [Magnesium] 400 mg PO DAILY 11/02/14 [History] Melatonin/Pyridoxine HCl (B6) [Melatonin 3 mg Tablet] 3 mg PO BEDTIME PRN 11/02/14 [History] LORazepam 0.5 mg PO Q6HR PRN 12/12/14 [History] Fludrocortisone [Florinef] 0.05 mg PO BIDMEALS #60 tablet 12/16/14 [Rx] Canagliflozin [Invokana] 300 mg PO DAILY 12/11/15 [History] Ondansetron [Ondansetron ODT] 4 mg PO Q6H PRN 12/11/15 [History] Hydrocortisone 10 mg PO QAM #45 tablet 12/12/15 [Rx] glipiZIDE [Glipizide ER] 2 mg PO DAILY 01/02/17 [History] Glimepiride [Amaryl] 2 mg PO DAILY 10/28/18 [History] Hydrocortisone 10 mg PO Q12HR 10/28/18 [History] Amoxicillin/Potassium Clav [Augmentin 875-125 Tablet] 1 each PO Q12H 6 Days #12 tablet 11/01/18 [Rx] cephALEXin [Keflex] 500 mg PO TID 7 Days #21 capsule 02/19/20 [Rx] Doxycycline [Vibra-Tabs] 100 mg PO BID #20 tablet 04/05/20 [Rx] Hydrocortisone [Cortef] 5 mg PO BID #20 tablet 04/05/20 [Rx] Naproxen [Naprosyn] 500 mg PO Q12HR #20 tab 04/05/20 [Rx] Past Medical History HEENT History: Reports: Impaired Vision, Other (See Below) Other HEENT History: glasses Cardiovascular History: Reports: Hypertension Other Cardiovascular History: "fluid buildup on the heart" Respiratory History: Reports: Pneumonia, Recurrent Gastrointestinal History: Reports: None, GERD Genitourinary History: Reports: None Musculoskeletal History: Reports: None Neurological History: Reports: None Psychiatric History: Reports: Anxiety, Depression 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 Diff - Past Surgical History Head Surgeries/Procedures: Reports: None HEENT Surgical History: Reports: None Cardiovascular Surgical History: Reports: None Respiratory Surgical History: Reports: None GI Surgical History: Reports: Cholecystectomy, Other (See Below) Other GI Surgeries/Procedures: spleenectomy Male Surgical History: Reports: None Endocrine Surgical History: Reports: None Neurological Surgical History: Reports: None Musculoskeletal Surgical History: Reports: None Oncologic Surgical History: Reports: None Dermatological Surgical History: Reports: None Social & Family History - Family History Family Medical History: No Pertinent Family History Respiratory: Reports: COPD, Other (See Below) Other Respiratory Family Hisory: pneumonia : Reports: Other (See Below) Other Family History: renal failure Endocrine/Metabolic: Reports: Diabetes, type II, Hypothyroidism Oncologic: Reports: Skin, Thyroid, Other (See Below) Other Oncologic Family History: stomach - Tobacco Use Tobacco Use Status *Q: Never Tobacco User - Caffeine Use Caffeine Use: Reports: Tea Caffeine Use Comment: 3-4 drinks - Recreational Drug Use Recreational Drug Use: No - Living Situation & Occupation Living situation: Reports: Single Occupation: Employed ED ROS GENERAL - Review of Systems Review Of Systems: See Below Constitutional: Reports: No Symptoms HEENT: Reports: No Symptoms Respiratory: Reports: No Symptoms Cardiovascular: Reports: No Symptoms Endocrine: Reports: No Symptoms GI/Abdominal: Reports: Abdominal Pain : Reports: No Symptoms Musculoskeletal: Reports: No Symptoms Skin: Reports: No Symptoms Neurological: Reports: No Symptoms Psychiatric: Reports: No Symptoms Hematologic/Lymphatic: Reports: No Symptoms Immunologic: Reports: No Symptoms ED EXAM, GENERAL - Physical Exam Exam: See Below Exam Limited By: No Limitations General Appearance: Alert, WD/WN, No Apparent Distress Eye Exam: Bilateral Eye: EOMI, PERRL Respiratory/Chest: No Respiratory Distress, Lungs Clear, Normal Breath Sounds Cardiovascular: Normal Peripheral Pulses, Regular Rate, Rhythm GI/Abdominal: Normal Bowel Sounds, Soft, Tender Extremities: Normal Inspection, Normal Range of Motion Neurological: Alert, Oriented, Normal Cognition, Normal Gait Departure - Departure Disposition: DC/Tfer to [facility] Clinical Impression: Appendicitis, acute, Addisons disease, Obesity, Lymphocytic leukemia, Pelvic lymphadenopathy - Discharge Information Referrals: Neil Willson MD [Primary Care Provider] - Forms: ED Department Discharge Sepsis Event Note (ED) - Evaluation Sepsis Screening Result: No Definite Risk - Assessment/Plan Plan: Patient is a 45-year-old male who was sent over by PMD for right lower quadrant pain. Will obtain CT scan abdomen pelvis and reassess. <HopeJoo - Last Filed: 09/12/20 19:58> ED HPI GENERAL MEDICAL PROBLEM - History of Present Illness INITIAL COMMENTS - FREE TEXT/NARRATIVE: He lost his appetite 2 nights ago. He did not eat or drink anything yesterday. He had abdominal pain since 2 nights ago. The patient has Moore's disease and leukemia. He thinks he is in remission with no checkups for leukemia for 7 months. Course - Vital Signs Text/Narrative:: The radiologist called me at about 1930. The patient has acute appendicitis with a 9 mm appendix I reviewed the history and he said symptoms for 48 hours. He did not eat at all for the last 36 hours. He had nothing to drink either. He has received a liter fluids. The radiologist also felt like in the area where the splenectomy had been done and in the pelvis he had multiple nodes suggesting had active leukemia. The patient has not seen his oncologist for 7 months and felt like he was in remission. The patient received daily steroids because of his Moore's disease. 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 We do not have oncology on the inpatient staff nor endocrinology. I discussed the case with Dr. Garcia in my not at [facility] and he felt like he could handle the patient. We are arranging ground transport for the patient to a higher level of care. This with Dr. Garcia at [facility] and he accepted the patient in transfer Last Recorded V/S: Last Vital Signs Temp 36.1 C 09/12/20 17:08 Pulse 114 H 09/12/20 19:49 Resp 16 09/12/20 19:49 BP 148/90 H 09/12/20 19:49 Pulse Ox 95 09/12/20 19:49 - Orders/Labs/Meds Orders: Active Orders 24 hr Category Date Time Status cefOXitin [Mefoxin] 2 gm Med 09/12/20 19:40 Active Sodium Chloride 0.9% [Normal Saline] 100 ml IV ONETIME methylPREDNISolone Sod Succ [Solu-MEDROL] Med 09/12/20 19:56 Stat 125 mg IV STAT STA Medication Orders Cefoxitin Sodium 2 gm/ Sodium (Chloride) 100 mls @ 200 mls/hr IV ONETIME ONE Stop: 09/12/20 20:09 Labs: Laboratory Tests 09/12/20 09/12/20 09/12/20 Range/Units 17:12 17:12 17:12 WBC 15.29 H (4.0-11.0) K/uL RBC 5.09 (4.50-5.90) M/uL Hgb 15.2 (13.0-17.0) g/dL Hct 46.3 (38.0-50.0) % MCV 91.0 (80.0-98.0) fL MCH 29.9 (27.0-32.0) pg MCHC 32.8 (31.0-37.0) g/dL RDW Std Deviation 50.9 (28.0-62.0) fl RDW Coeff of Carlos 15 (11.0-15.0) % Plt Count 310 (150-400) K/uL MPV 11.00 (7.40-12.00) fL Add Manual Diff YES Neutrophils % (Manual) 48 (48.0-80.0) % Lymphocytes % (Manual) 32 (16.0-40.0) % Monocytes % (Manual) 18 H (0.0-15.0) % Eosinophils % (Manual) 2 (0.0-7.0) % Nucleated RBC % 0.1 /100WBC Absolute Seg Neuts 7.3 H (1.4-5.7) Lymphocytes # (Manual) 4.9 H (0.6-2.4) Monocytes # (Manual) 2.8 H (0.0-0.8) Eosinophils # (Manual) 0.3 (0.0-0.7) Nucleated RBCs # 0 K/uL INR 1.12 APTT 38.6 H (18.6-31.3) SEC Lactate 0.7 (0.20-2.00) mmol/L Sodium (136-148) mmol/L Potassium (3.5-5.1) mmol/L Chloride (98-107) mmol/L Carbon Dioxide (21.0-32.0) mmol/L BUN (7.0-18.0) mg/dL Creatinine (0.8-1.3) mg/dL Est Cr Clr Drug Dosing mL/min Estimated GFR (MDRD) ml/min Glucose (74-106) mg/dL Calcium (8.5-10.1) mg/dL Total Bilirubin (0.2-1.0) mg/dL AST (15-37) IU/L ALT (14-63) IU/L Alkaline Phosphatase (46-116) U/L Total Protein (6.4-8.2) g/dL Albumin (3.4-5.0) g/dL Globulin (2.6-4.0) g/dL Albumin/Globulin Ratio (0.9-1.6) 03/17/21 Range/Units 17:12 WBC (4.0-11.0) K/uL RBC (4.50-5.90) M/uL Hgb (13.0-17.0) g/dL Hct (38.0-50.0) % MCV (80.0-98.0) fL MCH (27.0-32.0) pg MCHC (31.0-37.0) g/dL RDW Std Deviation (28.0-62.0) fl RDW Coeff of Carlos (11.0-15.0) % Plt Count (150-400) K/uL MPV (7.40-12.00) fL Add Manual Diff Neutrophils % (Manual) (48.0-80.0) % Lymphocytes % (Manual) (16.0-40.0) % Monocytes % (Manual) (0.0-15.0) % Eosinophils % (Manual) (0.0-7.0) % Nucleated RBC % /100WBC Absolute Seg Neuts (1.4-5.7) Lymphocytes # (Manual) (0.6-2.4) Monocytes # (Manual) (0.0-0.8) Eosinophils # (Manual) (0.0-0.7) Nucleated RBCs # K/uL INR APTT (18.6-31.3) SEC Lactate (0.20-2.00) mmol/L Sodium 136 (136-148) mmol/L Potassium 4.4 (3.5-5.1) mmol/L Chloride 99 (98-107) mmol/L Carbon Dioxide 25.6 (21.0-32.0) mmol/L BUN 22 H (7.0-18.0) mg/dL Creatinine 1.1 (0.8-1.3) mg/dL Est Cr Clr Drug Dosing 104.63 mL/min Estimated GFR (MDRD) > 60.0 ml/min Glucose 149 H (74-106) mg/dL Calcium 9.0 (8.5-10.1) mg/dL Total Bilirubin 0.6 (0.2-1.0) mg/dL AST 21 (15-37) IU/L ALT 37 (14-63) IU/L Alkaline Phosphatase 74 (46-116) U/L Total Protein 8.6 H (6.4-8.2) g/dL Albumin 3.7 (3.4-5.0) g/dL Globulin 4.9 H (2.6-4.0) g/dL Albumin/Globulin Ratio 0.8 L (0.9-1.6) Meds: Medications Generic Name Dose Route Start Last Admin Trade Name Vicente PRN Reason Stop Dose Admin Cefoxitin Sodium 2 gm/ Sodium 100 mls @ 200 mls/hr 09/12/20 19:40 Chloride IV 09/12/20 20:09 ONETIME ONE Discontinued Medications Generic Name Dose Route Start Last Admin Trade Name Vicente PRN Reason Stop Dose Admin Hydrocortisone Sodium Succinate 250 mg 09/12/20 19:41 Hydrocortisone Sodium Succinate 250 Mg/2 Ml Sdv IV 09/12/20 19:42 ONETIME ONE Sodium Chloride 1,000 mls @ 999 mls/hr 09/12/20 17:23 09/12/20 17:32 Normal Saline IV 09/12/20 18:23 999 mls/hr .BOLUS ONE Administration Iopamidol 100 ml 09/12/20 18:17 09/12/20 18:35 Iopamidol 755 Mg/Ml 500 Ml Multipack Bottle IVPUSH 09/12/20 18:18 100 ml ONETIME STA Administration Departure - Departure Time of Disposition: 20:20 Condition: Good Sepsis Event Note (ED) - Focused Exam Vital Signs: Vital Signs Temp Pulse Resp BP Pulse Ox 09/12/20 19:49 114 H 16 148/90 H 95 09/12/20 17:08 36.1 C 114 H 17 122/79 94 L - My Orders Last 24 Hours: My Active Orders 09/12/20 19:40 cefOXitin [Mefoxin] 2 gm Sodium Chloride 0.9% [Normal Saline] 100 ml IV ONETIME 09/12/20 19:56 methylPREDNISolone Sod Succ [Solu-MEDROL] 125 mg IV STAT STA - Assessment/Plan Last 24 Hours: My Active Orders 09/12/20 19:40 cefOXitin [Mefoxin] 2 gm Sodium Chloride 0.9% [Normal Saline] 100 ml IV ONETIM E 09/12/20 19:56 methylPREDNISolone Sod Succ [Solu-MEDROL] 125 mg IV STAT STA
[2020-09-12 18:07] LABS: BLOOD UREA NITROGEN,BUN 22 mg/dL (7.0-18.0); CHLORIDE,CL 99 mmol/L (98-107); GLUCOSE RANDOM 149 mg/dL (74-106); POTASSIUM,K 4.4 mmol/L (3.5-5.1); SODIUM,NA 136 mmol/L (136-148)
[2020-09-12 18:11] LABS: CARBON DIOXIDE,CO2 25.6 mmol/L (21.0-32.0)
[2020-09-12] MEDS ORDERED: Iopamidol 755 MG/ML 500 ML Multipack Bottle IVPUSH STA (18:17)
--- NOTE | 2020-09-12 19:28 | CT ---
INDICATION: Right lower quadrant pain with elevated white blood cell count. History of leukemia and Coal`s disease. COMPARISON: None available TECHNIQUE: CT examination of the abdomen and pelvis was performed with the uneventful intravenous administration of 100 cc of Isovue 370 while 2.5 mm thick axial sections were obtained from the lung bases through the pubic symphysis. Oral contrast was not administered. Please note that all CT scans at this facility use dose modulation, iterative reconstruction, and/or weight-based dosing when appropriate to reduce radiation dose to as low as reasonably achievable. FINDINGS: In the abdomen, the mildly fatty infiltrated liver is at least mildly enlarged, measuring at least 24.1 centimeters in length. The dome of the liver is not fully included on today`s study. There is no sign of any hepatic mass. The spleen is absent, with surgical clips in the adjacent to the pancreatic tail consistent with splenectomy. Pancreas is normal in appearance. The adrenals are very atrophic and are difficult to identify. This is consistent with the history of Coal`s disease. The kidneys are normal in appearance. Clips are seen in the gall bladder fossa from cholecystectomy. The common bile duct is nondilated. The abdominal aorta is normal in caliber with no sign of dilatation. There is moderate left periaortic retroperitoneal lymphadenopathy, with the largest lymph node having a short axis diameter of 2.8 centimeters. There is mild prominence of retro caval lymph nodes in the mid and upper abdomen, without distinct lymphadenopathy. There is moderate lymphadenopathy in the gastrohepatic ligament with a lymph node measuring 3.0 centimeters in short axis diameter. There is moderate sonu hepatis lymphadenopathy, with the largest lymph node having a short axis diameter of 3.7 centimeters in diameter. The stomach, loops of small bowel, and colon in the abdomen are normal in appearance. In the pelvis, the appendix is mildly dilated at 9 millimeters, with mild thickening of its wall and moderate periappendiceal inflammatory reaction. There is no sign of abscess, extraluminal gas, or free fluid in the pelvis to suggest perforation. The findings are that of acute, non ruptured appendicitis. The loops of small bowel and colon in the pelvis are normal in appearance. The prostate is normal in appearance. The urinary bladder is normal in appearance. There is moderate left greater than right common iliac lymphadenopathy with the largest lymph nodes having a short axis diameter of 2.5 centimeters on the left and 2.2 centimeters on the right. There is severe bilateral external iliac lymphadenopathy with the largest lymph nodes bilaterally measuring 3.1 centimeters in short axis diameter. There is mild prominence of inguinal lymph nodes without lymphadenopathy. There is no sign of free air or free fluid in the abdomen or pelvis. There is minimal patchy density in the posterior-medial right lung base, probably atelectasis. The lung bases are otherwise clear. The osseous structures are normal in appearance for the patient`s age. I discussed the findings with Dr. Hope at 1912 hours on 09/12/2020. IMPRESSION: Moderate to severe retroperitoneal, upper abdominal, common iliac, and external iliac lymphadenopathy, worrisome for recurrence of leukemia. CT of the abdomen shows changes of splenectomy. At least mild enlargement of the mildly fatty infiltrated liver. Status post cholecystectomy with no sign of biliary ductal dilatation. Very atrophic adrenal glands consistent with the history of Robson`s disease. CT of the pelvis shows changes of acute, non ruptured appendicitis. Please note that all CT scans at this facility use dose modulation, iterative reconstruction, and/or weight-based dosing when appropriate to reduce radiation dose to as low as reasonably achievable. Dictated by Nicolas Conde MD @ Sep 12 2020 7:05PM Signed by Dr. Nicolas Conde @ Sep 12 2020 7:26PM
[2020-09-12] MEDS ORDERED: cefOXitin 2 GM in Sodium Chloride 0.9% 100 ML IV ONE (19:40)
[2020-09-12] MEDS ORDERED: Hydrocortisone Sodium Succinate 250 MG/2 ML SDV IV ONE (19:41)
[2020-09-12] MEDS ORDERED: methylPREDNISolone Sodium Succinate 125 MG/2 ML SDV ONE (19:56)
[2020-09-12] MEDS ORDERED: methylPREDNISolone Sodium Succinate 125 MG/2 ML SDV IVPUSH STA (19:56)
[2020-09-12 20:15] VITALS: BP 140/85; PULSE 110
== END 2020-09-12 20:26 ==
LOC: MW.ED 16:40
DX: K35.80 Unspecified acute appendicitis (principal); C91.90 Lymphoid leukemia, unspecified not having achieved remission; E27.1 Primary adrenocortical insufficiency; R59.0 Localized enlarged lymph nodes; E66.9 Obesity, unspecified; Z68.42 Body mass index [BMI] 45.0-49.9, adult; I10 Essential (primary) hypertension; K21.9 Gastro-esophageal reflux disease without esophagitis; E11.9 Type 2 diabetes mellitus without complications; Z79.84 Long term (current) use of oral hypoglycemic drugs; Z79.899 Other long term (current) drug therapy
CPT/HCPCS: 36415; 74177; 80053; 83605; 85025; 85610; 85730; 96365; 96375; 99285; J0694; J2930; J7030; Q9967; 99284

== ENCOUNTER 2021-12-31 18:58 | Emergency (ER) | payer BC ==
[2021-12-31 20:00] LABS: CARBON DIOXIDE,CO2 27.3 mmol/L (21.0-32.0); POTASSIUM,K 4.1 mmol/L (3.5-5.1)
[2021-12-31] MEDS ORDERED: Magnesium Oxide 400 MG Tab PO ONE (20:10)
[2021-12-31] MEDS ORDERED: Iopamidol 755 MG/ML 500 ML Multipack Bottle IVPUSH ONE (20:28)
[2021-12-31 21:28] VITALS: BP 135/63; PULSE 84
== END 2021-12-31 22:51 | disposition home or self-care (01) ==
LOC: MW.ED 18:58
DX: R55 Syncope and collapse (principal); R59.0 Localized enlarged lymph nodes; D72.829 Elevated white blood cell count, unspecified; E11.9 Type 2 diabetes mellitus without complications; I10 Essential (primary) hypertension; E66.9 Obesity, unspecified; Z68.42 Body mass index [BMI] 45.0-49.9, adult; Z20.822 Contact with and (suspected) exposure to COVID-19
CPT/HCPCS: 36415; 71045; 71275; 80053; 82550; 83605; 83735; 83880; 84443; 84484; 85025; 85379; 85610; 87635; 93005; 99285; A9270; Q9967; 93010; U0002

== ENCOUNTER 2022-02-04 11:44 | Inpatient (IN) | payer BC ==
[2022-02-04] MEDS ORDERED: Dexamethasone 10 MG/ML SDV IVPUSH STA (12:03)
[2022-02-04] MEDS ORDERED: REMDESIVIR 200 MG in Sodium Chloride 0.9% 250 ML IV ONE ×2 (12:07→12:30)
[2022-02-04 12:31] LABS: CARBON DIOXIDE,CO2 24.1 mmol/L (21.0-32.0); POTASSIUM,K 4.8 mmol/L (3.5-5.1)
[2022-02-04] MEDS ORDERED: Sodium Chloride 0.9% 1,000 ML IV ONE (12:57)
[2022-02-04] MEDS ORDERED: Enoxaparin 150 MG/1 ML Syringe SUBCUT ONE (13:21)
[2022-02-04] MEDS ORDERED: Heparin Sodium 5,000 Units/ML Vial IVPUSH ONE (13:46)
[2022-02-04] MEDS ORDERED: Sodium Chloride 0.9% 10 ML Syringe FLUSH PRN (14:29)
[2022-02-04] MEDS ORDERED: Ondansetron 4 MG/2 ML SDV IVPUSH PRN (14:29)
[2022-02-04] MEDS ORDERED: Albuterol/Ipratropium 3.0-0.5 MG/3 ML Neb Soln NEB PRN (14:29)
[2022-02-04] MEDS ORDERED: Acetaminophen 325 MG Tab PO PRN (14:29)
[2022-02-04] MEDS ORDERED: Sodium Chloride 0.9% 2.5 ML Syringe FLUSH PRN (14:29)
[2022-02-04] MEDS ORDERED: Benzonatate 100 MG Cap PO PRN (14:41)
[2022-02-04] MEDS ORDERED: 50% Dextrose in Water 50 ML Syringe IVPUSH PRN (14:43)
[2022-02-04] MEDS ORDERED: Glucagon,Human Recombinant 1 MG Vial IM PRN (14:43)
[2022-02-04] MEDS ORDERED: LORazepam 0.5 MG Tab PO PRN (14:48)
[2022-02-04] MEDS: Heparin Sodium/0.45% NaCl 500 ML IV SCH ×2 (14:49→22:42)
[2022-02-04] MEDS: Pantoprazole 40 MG in Sodium Chloride 0.9% 10 ML IVPUSH SCH (17:52)
[2022-02-04] MEDS: Fludrocortisone 0.1 MG Tab PO SCH (17:54)
[2022-02-04] MEDS: Codeine/guaiFENesin 10-100 MG/5 ML Syrup 5 ML Cup PO PRN (17:55)
[2022-02-04] MEDS ORDERED: Sodium Chloride 0.9% 500 ML IV SCH (18:00)
[2022-02-04] MEDS: Insulin Aspart 100 Units/ML 3 ML Pen SUBCUT SCH (18:35)
[2022-02-05 03:45] LABS: CARBON DIOXIDE,CO2 19.8 mmol/L (21.0-32.0); POTASSIUM,K 5.1 mmol/L (3.5-5.1)
[2022-02-05] MEDS ORDERED: Magnesium Sulfate/D5W 1 GM/100 ML Premix Bag IV ONE (06:54)
[2022-02-05] MEDS: Fludrocortisone 0.1 MG Tab PO SCH ×2 (07:35→16:50)
[2022-02-05] MEDS ORDERED: Sodium Chloride 0.9% 1,000 ML IV ONE (07:56)
[2022-02-05] MEDS ORDERED: LORazepam 0.5 MG Tab PO PRN (08:00)
[2022-02-05] MEDS: Dexamethasone 4 MG Tab PO SCH (08:08)
[2022-02-05] MEDS: Insulin Aspart 100 Units/ML 3 ML Pen SUBCUT SCH ×4 (08:09→18:34)
[2022-02-05] MEDS: Sertraline 50 MG Tab PO SCH (08:09)
[2022-02-05] MEDS: Benzocaine/Cetylpyridinium/Menthol Lozenge MUCMEM PRN (08:42)
[2022-02-05] MEDS: Heparin Sodium/0.45% NaCl 500 ML IV SCH (08:54)
[2022-02-05] MEDS: REMDESIVIR 100 MG in Sodium Chloride 0.9% 100 ML IV SCH (12:05)
[2022-02-05] MEDS: Codeine/guaiFENesin 10-100 MG/5 ML Syrup 5 ML Cup PO PRN (12:53)
[2022-02-05] MEDS: Pantoprazole 40 MG in Sodium Chloride 0.9% 10 ML IVPUSH SCH (14:10)
[2022-02-06] MEDS: Heparin Sodium/0.45% NaCl 500 ML IV SCH ×2 (00:10→15:49)
[2022-02-06 06:04] LABS: CARBON DIOXIDE,CO2 27.6 mmol/L (21.0-32.0)
[2022-02-06] MEDS: Fludrocortisone 0.1 MG Tab PO SCH ×2 (07:48→17:06)
[2022-02-06] MEDS: Dexamethasone 4 MG Tab PO SCH (08:07)
[2022-02-06] MEDS: Sertraline 50 MG Tab PO SCH (08:08)
[2022-02-06] MEDS: Insulin Aspart 100 Units/ML 3 ML Pen SUBCUT SCH ×3 (08:08→17:11)
[2022-02-06] MEDS: Benzocaine/Cetylpyridinium/Menthol Lozenge MUCMEM PRN (08:23)
[2022-02-06] MEDS: Codeine/guaiFENesin 10-100 MG/5 ML Syrup 5 ML Cup PO PRN (08:23)
[2022-02-06] MEDS ORDERED: Sodium Chloride 0.9% 500 ML IV ONE (10:00)
[2022-02-06] MEDS: REMDESIVIR 100 MG in Sodium Chloride 0.9% 100 ML IV SCH (12:33)
[2022-02-06] MEDS: Pantoprazole 40 MG in Sodium Chloride 0.9% 10 ML IVPUSH SCH (15:17)
[2022-02-06] MEDS ORDERED: Heparin Sodium 5,000 Units/ML Vial IVPUSH ONE (17:15)
[2022-02-07] MEDS: Heparin Sodium/0.45% NaCl 500 ML IV SCH ×2 (05:48→18:41)
[2022-02-07 06:04] LABS: CARBON DIOXIDE,CO2 28.5 mmol/L (21.0-32.0); POTASSIUM,K 4.6 mmol/L (3.5-5.1)
[2022-02-07] MEDS: Insulin Aspart 100 Units/ML 3 ML Pen SUBCUT SCH ×3 (07:57→17:26)
[2022-02-07] MEDS: Dexamethasone 4 MG Tab PO SCH (08:00)
[2022-02-07] MEDS: Sertraline 50 MG Tab PO SCH (08:01)
[2022-02-07] MEDS: Fludrocortisone 0.1 MG Tab PO SCH ×2 (09:43→17:24)
[2022-02-07] MEDS: REMDESIVIR 100 MG in Sodium Chloride 0.9% 100 ML IV SCH (12:09)
[2022-02-07] MEDS: Pantoprazole 40 MG in Sodium Chloride 0.9% 10 ML IVPUSH SCH (14:42)
[2022-02-08 04:36] LABS: CARBON DIOXIDE,CO2 27.9 mmol/L (21.0-32.0); POTASSIUM,K 4.4 mmol/L (3.5-5.1)
[2022-02-08] MEDS: Heparin Sodium/0.45% NaCl 500 ML IV SCH ×2 (08:25→22:09)
[2022-02-08] MEDS: Insulin Aspart 100 Units/ML 3 ML Pen SUBCUT SCH ×3 (08:30→17:13)
[2022-02-08] MEDS: Fludrocortisone 0.1 MG Tab PO SCH ×2 (08:31→16:11)
[2022-02-08] MEDS: Sertraline 50 MG Tab PO SCH (08:31)
[2022-02-08] MEDS: Dexamethasone 4 MG Tab PO SCH (08:32)
[2022-02-08] MEDS ORDERED: Heparin Sodium 5,000 Units/ML Vial IVPUSH ONE (11:49)
[2022-02-08] MEDS: REMDESIVIR 100 MG in Sodium Chloride 0.9% 100 ML IV SCH (12:18)
[2022-02-08] MEDS: Pantoprazole 40 MG in Sodium Chloride 0.9% 10 ML IVPUSH SCH (14:05)
[2022-02-09 06:53] LABS: CARBON DIOXIDE,CO2 27.5 mmol/L (21.0-32.0); POTASSIUM,K 4.3 mmol/L (3.5-5.1)
[2022-02-09] MEDS: Dexamethasone 4 MG Tab PO SCH (08:19)
[2022-02-09] MEDS: Sertraline 50 MG Tab PO SCH (08:20)
[2022-02-09] MEDS: Insulin Aspart 100 Units/ML 3 ML Pen SUBCUT SCH ×2 (08:21→12:08)
[2022-02-09] MEDS: Fludrocortisone 0.1 MG Tab PO SCH (08:21)
[2022-02-09] MEDS: Heparin Sodium/0.45% NaCl 500 ML IV SCH (10:30)
[2022-02-09] MEDS ORDERED: Lidocaine 2% 5 ML SDV INJECT ONE (10:35)
[2022-02-09] MEDS ORDERED: Heparin Sodium 5,000 Units/ML Vial IVPUSH ONE (13:05)
[2022-02-09] MEDS ORDERED: Iopamidol 755 MG/ML 500 ML Multipack Bottle IVPUSH STA (13:58)
[2022-02-09] MEDS: Pantoprazole 40 MG in Sodium Chloride 0.9% 10 ML IVPUSH SCH (15:25)
[2022-02-09 15:35] VITALS: BP 160/78; PULSE 74
== END 2022-02-09 16:40 | disposition home or self-care (01) | DRG 137 ==
LOC: MW.ED 11:44 → MW.ICU 13:47 → MW.MS 02-06 13:47
PROVIDERS: ADMIT Internal Medicine; ATTEND Internal Medicine
PROC: XW033E5 Introduction of Remdesivir Anti-infective into Peripheral Vein, Percutaneous Approach, New Technology Group 5 (ICD-10-PCS; principal; 2022-02-04)
PROC: 3E0333Z Introduction of Anti-inflammatory into Peripheral Vein, Percutaneous Approach (ICD-10-PCS; 2022-02-04)
PROC: 3E0DX3Z Introduction of Anti-inflammatory into Mouth and Pharynx, External Approach (ICD-10-PCS; 2022-02-05)
PROC: 5A09357 Assistance with Respiratory Ventilation, Less than 24 Consecutive Hours, Continuous Positive Airway Pressure (ICD-10-PCS; 2022-02-05)
PROC: 05HY33Z Insertion of Infusion Device into Upper Vein, Percutaneous Approach (ICD-10-PCS; 2022-02-09)
DX: U07.1 COVID-19 (principal); J12.82 Pneumonia due to coronavirus disease 2019; E66.01 Morbid (severe) obesity due to excess calories; Z68.41 Body mass index [BMI] 40.0-44.9, adult; E27.1 Primary adrenocortical insufficiency; J96.01 Acute respiratory failure with hypoxia; N17.9 Acute kidney failure, unspecified; Z28.310 Unvaccinated for COVID-19; C91.90 Lymphoid leukemia, unspecified not having achieved remission; K21.9 Gastro-esophageal reflux disease without esophagitis; F41.9 Anxiety disorder, unspecified; F32.A Depression, unspecified; D84.9 Immunodeficiency, unspecified; E11.9 Type 2 diabetes mellitus without complications; I10 Essential (primary) hypertension; Z79.899 Other long term (current) drug therapy; Z90.49 Acquired absence of other specified parts of digestive tract
CPT/HCPCS: 36415; 71045; 71045-26; 71275; 71275-26; 80053; 82248; 82947; 83605; 83735; 84443; 84484; 85025; 85379; 85730; 93005; 93010; 94660; 96365; 96366; 96375; 99285-25; 99291; A9270-GY; C9113; J0248; J1100; J1644; J1815-GY; J3475; J3490; J7030; J7040; J7050; J8540; Q9967; U0002

== ENCOUNTER 2022-06-26 15:40 | Emergency (ER) | payer BC ==
[2022-06-26 16:47] VITALS: BP 145/67; PULSE 96
== END 2022-06-26 17:44 | disposition home or self-care (01) ==
LOC: MW.ED 15:40
DX: S81.802A Unspecified open wound, left lower leg, initial encounter (principal); I10 Essential (primary) hypertension; K21.9 Gastro-esophageal reflux disease without esophagitis; E11.9 Type 2 diabetes mellitus without complications; E66.9 Obesity, unspecified; Z68.42 Body mass index [BMI] 45.0-49.9, adult; Z79.84 Long term (current) use of oral hypoglycemic drugs; Z79.899 Other long term (current) drug therapy
CPT/HCPCS: 99282

== ENCOUNTER 2022-09-19 07:19 | Day surgery (SDC) | payer BC ==
[~2022-09-19 07:19] MED LIST: Lactated Ringers 1,000 ML IV SCH; Sodium Chloride 0.9% 10 ML Syringe FLUSH PRN; Sodium Chloride 0.9% 2.5 ML Syringe FLUSH PRN; Sodium Chloride 0.9% 20 ML SDV IV PRN; ceFAZolin 2 GM in Premix Bag 1 BAG IV ONE
[2022-09-19] MEDS ORDERED: Ketorolac 30 MG/ML SDV ONE (07:36)
[2022-09-19] MEDS ORDERED: Albuterol 0.083% 2.5 MG/3 ML Neb Soln NEB PRN (07:36)
[2022-09-19] MEDS ORDERED: fentaNYL 50 MCG/ML SDV IVPUSH PRN (07:36)
[2022-09-19] MEDS ORDERED: Ondansetron 4 MG/2 ML SDV IVPUSH PRN (07:36)
[2022-09-19] MEDS ORDERED: Propofol 200 MG/20 ML SDV ONE (07:36)
[2022-09-19] MEDS ORDERED: Morphine 2 MG/ML SYRINGE IVPUSH PRN (07:36)
[2022-09-19] MEDS ORDERED: Naloxone 0.4 MG/ML SDV IVPUSH PRN (07:36)
[2022-09-19] MEDS ORDERED: HYDROmorphone 1 MG/ML Syringe IVPUSH PRN (07:36)
[2022-09-19] MEDS ORDERED: Lidocaine 2% 11 ML Jelly Filled Syringe ONE (07:36)
[2022-09-19] MEDS ORDERED: Metoclopramide 10 MG/2 ML SDV IVPUSH PRN (07:36)
[2022-09-19] MEDS ORDERED: Lidocaine 2% 5 ML SDV ONE (07:36)
[2022-09-19] MEDS ORDERED: fentaNYL 100 MCG/2 ML SDV ONE (07:37)
[2022-09-19] MEDS ORDERED: ceFAZolin 1 GM Vial ONE (08:34)
[2022-09-19] MEDS ORDERED: ceFAZolin 2 GM Vial ONE (08:34)
[2022-09-19] MEDS ORDERED: Bupivacaine 0.5% 10 ML SDV ONE (09:21)
[2022-09-19] MEDS ORDERED: Lidocaine 1% 20 ML MDV ONE (09:21)
[2022-09-19] MEDS ORDERED: Heparin Sodium 100 Units/ML 3 ML Syringe ONE (09:21)
[2022-09-19 13:11] VITALS: BP 105/56; PULSE 90
== END 2022-09-19 10:10 | disposition home or self-care (01) ==
LOC: MW.SDS 07:19
PROVIDERS: ATTEND Surgery
DX: C91.10 Chronic lymphocytic leukemia of B-cell type not having achieved remission (principal); F41.9 Anxiety disorder, unspecified; F32.A Depression, unspecified; E11.9 Type 2 diabetes mellitus without complications; K21.9 Gastro-esophageal reflux disease without esophagitis; G47.33 Obstructive sleep apnea (adult) (pediatric); E78.5 Hyperlipidemia, unspecified; Z79.899 Other long term (current) drug therapy
CPT/HCPCS: 71045; 71045-26; 76000; 76000-26; 82947; A9270-GY; J0690; J1642; J1885; J2704; J3010; J3490; J7120

== ENCOUNTER 2023-06-18 09:21 | Emergency (ER) | payer BC ==
[2023-06-18] MEDS ORDERED: Acetaminophen/oxyCODONE 325-5 MG Tab PO ONE (09:58)
[2023-06-18] MEDS ORDERED: Ibuprofen 600 MG Tab PO ONE (09:58)
[2023-06-18 12:47] VITALS: BP 131/71; PULSE 89
== END 2023-06-18 12:47 | disposition home or self-care (01) ==
LOC: MW.ED 09:21
DX: S89.92XA Unspecified injury of left lower leg, initial encounter (principal); S89.91XA Unspecified injury of right lower leg, initial encounter; K21.9 Gastro-esophageal reflux disease without esophagitis; I10 Essential (primary) hypertension; E11.9 Type 2 diabetes mellitus without complications; E66.9 Obesity, unspecified; Z79.899 Other long term (current) drug therapy; Z86.16 Personal history of COVID-19; Z90.49 Acquired absence of other specified parts of digestive tract; Z68.41 Body mass index [BMI] 40.0-44.9, adult; W01.0XXA Fall on same level from slipping, tripping and stumbling without subsequent striking against object, initial encounter
CPT/HCPCS: 73562; 99283; A9270